=== PATIENT | male | born 1945 | race Caucasian/White ===

== ENCOUNTER 2017-02-04 09:59 | Emergency (ER) | payer MEDICARE ==
[~2017-02-04] VITALS: Ht 180.3 cm; Wt 100.0 kg
[2017-02-04] MEDS ORDERED: METO-95 PO (10:46)
[2017-02-04] MEDS ORDERED: SULF500T47 PO (10:46)
[2017-02-04] MEDS ORDERED: HYDROXUREA PO (10:46)
[2017-02-04] MEDS ORDERED: LAMO100T5 PO (10:46)
[2017-02-04] MEDS ORDERED: AMLO5TAB4 PO (10:46)
[2017-02-04] MEDS ORDERED: XERALTO (10:46)
[2017-02-04] MEDS ORDERED: PREDNISONE (10:52)
[2017-02-04] MEDS ORDERED: SODIUM CHLORIDE 0.9% 1,000 ML IV ONE (10:53)
[2017-02-04] MEDS ORDERED: SODIUM CHLORIDE FLUSH 10ML SYR IVF ONE (11:00)
[2017-02-04] MEDS ORDERED: SODIUM CHLORIDE 0.9% 1,000ML IVBOLUS ONE (11:00)
[2017-02-04 11:33] LABS: HEMATOCRIT 49.5 % (39.2-51.8); HEMOGLOBIN 16.1 g/dL (13.7-18.0); WHITE BLOOD COUNT 10.3 x10^3/uL (3.4-10)
[2017-02-04 11:41] LABS: BLOOD UREA NITROGEN 18 mg/dL (7-18)
[2017-02-04 11:47] LABS: ASPARTATE AMINO TRANSFERASE 18 U/L (15-37)
[2017-02-04 11:52] LABS: ANISOCYTOSIS 1+; GIANT PLATELETS 1+
[2017-02-04 11:53] LABS: HOWELL-JOLLY BODIES 1+
[2017-02-04 11:55] LABS: IS PT STATUS REG ER OR PRE ER? YES
[2017-02-04 13:39] LABS: PATH.CAST-FLAG NOT PRESENT; SPERM-FLAG NOT PRESENT; SRC-FLAG NOT PRESENT; XTAL-FLAG NOT PRESENT; YLC-FLAG NOT PRESENT
[2017-02-04 16:36] VITALS: BP 178/66
== END 2017-02-04 17:34 | disposition home or self-care (01) ==
LOC: ED 12:29
DX: R06.00 Dyspnea, unspecified (principal); R53.1 Weakness; I10 Essential (primary) hypertension
CPT/HCPCS: 36415; 71275; 80053; 81001; 83605; 83735; 83880; 84439; 84443; 84484; 85025; 93005; 96360; 96361; 99285; J7030

== ENCOUNTER 2017-05-28 14:30 | Inpatient (IN) | payer MEDICARE ==
[~2017-05-28] VITALS: Ht 180.3 cm; Wt 88.0 kg
[~2017-05-28 14:30] MED LIST: AMLO5TAB4 PO; HYDROXUREA PO; LAMO100T5 PO; METO-95 PO; PREDNISONE PO; SULF500T47 PO; XERALTO PO
[2017-05-28] MEDS ORDERED: SODIUM CHLORIDE 0.9% 1,000 ML IV ONE ×2 (14:53→17:57)
[2017-05-28] MEDS ORDERED: MAALOX/HYOSCYAMINE/LIDOCAINE 45 ML BTL PO ONE (15:00)
[2017-05-28] MEDS ORDERED: PANTOPRAZOLE 40 MG IV IVP ONE (15:00)
[2017-05-28] MEDS ORDERED: SODIUM CHLORIDE FLUSH 10ML SYR IVF ONE (15:00)
[2017-05-28 15:11] LABS: BASOPHILS # (AUTO) 0.05 x10^3/uL (0-0.1); BASOPHILS % (AUTO) 0 % (0-1); EOSINOPHILS # (AUTO) 0.01 x10^3/uL (0-0.4); EOSINOPHILS % (AUTO) 0 % (1-7); LYMPHOCYTES # (AUTO) 1.19 x10^3/uL (1-3.4); LYMPHOCYTES % (AUTO) 10 % (22-44); MD NO; MEAN CORPUSCULAR HEMOGLOBIN 32.4 pg (27.5-34.5); MEAN CORPUSCULAR HGB CONC 32.2 g/dL (33.2-36.2); MEAN CORPUSCULAR VOLUME 100.6 fL (81-97); MONOCYTES # (AUTO) 0.98 x10^3/uL (0.2-0.8); MONOCYTES % (AUTO) 8 % (2-9); NEUTROPHILS # (AUTO) 9.78 x10^3/uL (1.8-6.8); NEUTROPHILS % (AUTO) 82 % (42-75); PLATELET COUNT 345 x10^3/uL (130-400); RED BLOOD COUNT 5.33 x10^6/uL (4.38-5.82); RED CELL DISTRIBUTION WIDTH 15.2 % (9.4-14.8)
[2017-05-28] MEDS ORDERED: PANTOPRAZOLE 40 MG IV ONE (15:13)
[2017-05-28] MEDS ORDERED: MAALOX/HYOSCYAMINE/LIDOCAINE 45 ML BTL ONE (15:13)
[2017-05-28 15:24] LABS: ALANINE AMINOTRANSFERASE 32 U/L (12-78); ALBUMIN 3.6 g/dL (3.4-5.0); ANION GAP 9 mmol/L (5-15); CALCIUM 10.8 mg/dL (8.5-10.1); CHLORIDE 97 mmol/L (98-107); CREATININE 1.55 mg/dL (0.7-1.3)
[2017-05-28 15:29] LABS: ALKALINE PHOSPHATASE 94 U/L (45-117); BILIRUBIN,TOTAL 0.9 mg/dL (0.2-1.0); TOTAL PROTEIN 8.3 g/dL (6.4-8.2)
[2017-05-28] MEDS ORDERED: CEFOTETAN PMX 1GM/50ML 50 ML IV ONE (17:30)
[2017-05-28 17:34] LABS: CULTURE INDICATED? NO; MICROSCOPIC NOT IND
[2017-05-28] MEDS ORDERED: LORazepam 2 MG/ML, 1ML IVPush PRN (18:00)
[2017-05-28] MEDS ORDERED: ONDANSETRON 2MG/ML, 2ML IVPush PRN (18:00)
[2017-05-28] MEDS ORDERED: hydrALAzine 20 MG/ML, 1ML IVPush PRN (18:00)
[2017-05-28] MEDS ORDERED: SODIUM CHLORIDE FLUSH 10ML SYR IVF PRN (18:00)
[2017-05-28] MEDS ORDERED: LABETALOL 5MG/ML, 20ML IVPush PRN (18:00)
[2017-05-28] MEDS ORDERED: CEFOTETAN PMX 1GM/50ML 50 ML ONE ×2 (18:17→18:22)
[2017-05-28] MEDS ORDERED: PROMETHAZINE 25 MG/ML, 1ML IM ONE (19:00)
[2017-05-28] MEDS: HYDROmorphone 2 MG/ML, 1ML IVPush PRN (19:59)
[2017-05-28] MEDS: SODIUM CHLORIDE 0.9% 1,000 ML IV SCH (20:02)
[2017-05-28] MEDS ORDERED: GABA100C PO (20:27)
[2017-05-28] MEDS ORDERED: MYCO500T3 PO (20:27)
[2017-05-28] MEDS ORDERED: HYDR-3237 PO (20:27)
[2017-05-28] MEDS ORDERED: DIPH25CA61 PO (20:27)
[2017-05-28] MEDS ORDERED: ONDA4TAB10 PO (20:27)
[2017-05-28] MEDS ORDERED: CARB1TAB4 PO (20:27)
[2017-05-28] MEDS ORDERED: TACR1CAP4 PO (20:27)
[2017-05-28] MEDS ORDERED: PROM25TA10 PO (20:27)
[2017-05-28] MEDS ORDERED: OMEP-110 PO (20:27)
[2017-05-28] MEDS ORDERED: NYST1000 PO (20:27)
[2017-05-28] MEDS ORDERED: OXYC10TA47 PO (20:27)
[2017-05-28 20:31] VITALS: BP 121/71
[2017-05-28] MEDS ORDERED: [UNRECOGNIZED DRUG - OTHER] EACHEYE (21:11)
[2017-05-29 00:08] VITALS: BP 157/96
[2017-05-29] MEDS ORDERED: PROP1DRO6 EACHEYE (01:36)
[2017-05-29 01:57] LABS: TROPONIN I 0.031 ng/mL (0.000-0.045)
[2017-05-29] MEDS ORDERED: ARTIFICIAL TEARS OPHTH SOLN 15ML EACHEYE PRN (02:00)
[2017-05-29] MEDS ORDERED: [UNRECOGNIZED DRUG - OTHER] EACHEYE PRN (02:00)
[2017-05-29] MEDS: SODIUM CHLORIDE 0.9% 1,000 ML IV SCH (04:58)
[2017-05-29 05:14] LABS: CLOSTRIDIUM DIFFICILE ANTIGEN NEGATIVE; CLOSTRIDIUM DIFFICILE TOXIN NEGATIVE (Negative)
[2017-05-29 05:55] VITALS: BP 141/80
[2017-05-29] MEDS: METOPROLOL TARTRATE 100 MG TABLET PO SCH ×2 (05:59→17:54)
[2017-05-29 07:31] LABS: MEAN CORPUSCULAR HEMOGLOBIN 32.7 pg (27.5-34.5); MEAN CORPUSCULAR HGB CONC 32.1 g/dL (33.2-36.2); MEAN CORPUSCULAR VOLUME 101.9 fL (81-97); RED BLOOD COUNT 4.53 x10^6/uL (4.38-5.82); RED CELL DISTRIBUTION WIDTH 15.2 % (9.4-14.8)
[2017-05-29 07:37] VITALS: BP 161/92
[2017-05-29 07:38] LABS: TROPONIN I 0.025 ng/mL (0.000-0.045)
[2017-05-29 07:41] LABS: ANION GAP 9 mmol/L (5-15); CHLORIDE 105 mmol/L (98-107); CREATININE 1.15 mg/dL (0.7-1.3)
[2017-05-29 08:26] LABS: BASOPHILS # (AUTO) 0.05 x10^3/uL (0-0.1); BASOPHILS % (AUTO) 1 % (0-1); EOSINOPHILS # (AUTO) 0.09 x10^3/uL (0-0.4); EOSINOPHILS % (AUTO) 1 % (1-7); LYMPHOCYTES # (AUTO) 1.59 x10^3/uL (1-3.4); LYMPHOCYTES % (AUTO) 16 % (22-44); MD SCAN; MEAN PLATELET VOLUME 10.6 fL (7.4-10.4); MONOCYTES % (AUTO) 14 % (2-9); NEUTROPHILS # (AUTO) 6.67 x10^3/uL (1.8-6.8); NEUTROPHILS % (AUTO) 68 % (42-75); PLATELET COUNT 331 x10^3/uL (130-400)
[2017-05-29] MEDS ORDERED: POTASSIUM CHLORIDE 20 MEQ in SODIUM CHLORIDE 0.9% 250 ML IV ONE (09:00)
[2017-05-29 12:00] VITALS: BP 126/63
[2017-05-29] MEDS ORDERED: POTASSIUM PHOSPHATE 44 MEQ in SODIUM CHLORIDE 0.9% 500 ML IV ONE (12:30)
[2017-05-29] MEDS ORDERED: MAGNESIUM SULFATE PMX 4GM/100M 100 ML IV ONE (12:30)
[2017-05-29 13:44] LABS: FOLATE LEVEL > 20.0 ng/mL (3.1-17.5)
[2017-05-29] MEDS: HYDROmorphone 2 MG/ML, 1ML IVPush PRN (14:08)
[2017-05-29] MEDS ORDERED: AMLODIPINE 5 MG TABLET PO SCH (15:00)
[2017-05-29 20:10] VITALS: BP 113/67
[2017-05-29] MEDS: GABAPENTIN 100 MG CAPSULE PO SCH (20:47)
[2017-05-29] MEDS: TACROLIMUS 1 MG CAPSULE PO SCH (20:47)
[2017-05-29] MEDS ORDERED: ALFU10TA3 PO (21:08)
[2017-05-29] MEDS ORDERED: HYDROXYUREA 500 MG CAPSULE PO SCH (21:30)
[2017-05-29] MEDS ORDERED: OMEPRAZOLE 20 MG CAPSULE.DR PO SCH (21:30)
[2017-05-29] MEDS ORDERED: ALFUZOSIN 10 MG PO SCH (22:30)
[2017-05-29] MEDS: RIVAROXABAN 20 MG TABLET PO SCH (23:21)
[2017-05-30] MEDS: TAMSULOSIN 0.4 MG CAP.ER.24H PO SCH ×2 (00:58→21:20)
[2017-05-30 02:40] VITALS: BP 171/90
[2017-05-30 05:28] LABS: MEAN CORPUSCULAR HEMOGLOBIN 32.9 pg (27.5-34.5); MEAN CORPUSCULAR HGB CONC 32.3 g/dL (33.2-36.2); MEAN CORPUSCULAR VOLUME 101.9 fL (81-97); RED BLOOD COUNT 4.74 x10^6/uL (4.38-5.82); RED CELL DISTRIBUTION WIDTH 15.3 % (9.4-14.8)
[2017-05-30 05:35] LABS: BASOPHILS # (AUTO) 0.18 x10^3/uL (0-0.1); BASOPHILS % (AUTO) 2 % (0-1); EOSINOPHILS % (AUTO) 1 % (1-7); LYMPHOCYTES # (AUTO) 1.74 x10^3/uL (1-3.4); LYMPHOCYTES % (AUTO) 19 % (22-44); MD SCAN; MEAN PLATELET VOLUME 10.7 fL (7.4-10.4); MONOCYTES # (AUTO) 1.44 x10^3/uL (0.2-0.8); MONOCYTES % (AUTO) 16 % (2-9); NEUTROPHILS # (AUTO) 5.84 x10^3/uL (1.8-6.8); NEUTROPHILS % (AUTO) 63 % (42-75); PLATELET COUNT 293 x10^3/uL (130-400)
[2017-05-30 05:39] LABS: CHLORIDE 107 mmol/L (98-107)
[2017-05-30 05:49] VITALS: BP 166/85
[2017-05-30 05:50] LABS: ALANINE AMINOTRANSFERASE 28 U/L (12-78); ALKALINE PHOSPHATASE 78 U/L (45-117); ANION GAP 8 mmol/L (5-15); BILIRUBIN,TOTAL 0.9 mg/dL (0.2-1.0); CALCIUM 8.8 mg/dL (8.5-10.1); CREATININE 0.96 mg/dL (0.7-1.3); TOTAL PROTEIN 6.6 g/dL (6.4-8.2)
[2017-05-30] MEDS: GABAPENTIN 100 MG CAPSULE PO SCH ×3 (05:50→21:20)
[2017-05-30] MEDS: METOPROLOL TARTRATE 100 MG TABLET PO SCH ×2 (05:51→18:03)
[2017-05-30] MEDS ORDERED: OMEPRAZOLE 20 MG CAPSULE.DR PO SCH (07:30)
[2017-05-30 07:59] VITALS: BP 164/80
[2017-05-30] MEDS ORDERED: AMLODIPINE 5 MG TABLET PO SCH (09:00)
[2017-05-30] MEDS: TACROLIMUS 1 MG CAPSULE PO SCH ×2 (10:03→21:20)
[2017-05-30] MEDS: SODIUM CHLORIDE 0.9% 1,000 ML IV SCH (12:00)
[2017-05-30] MEDS: FAMOTIDINE 20 MG TABLET PO SCH ×2 (12:12→21:20)
[2017-05-30 13:36] VITALS: BP 109/65
[2017-05-30] MEDS ORDERED: FAMO20TA7 PO (17:17)
[2017-05-30] MEDS ORDERED: AMLO5TAB4 PO (17:17)
[2017-05-30 19:02] VITALS: BP 132/88
[2017-05-30] MEDS: RIVAROXABAN 20 MG TABLET PO SCH (21:20)
== END 2017-05-30 22:09 | disposition home or self-care (01) | DRG 388 ==
LOC: ED 17:56 → EDIP 17:57 → ED 18:45 → 3NE 19:32
PROVIDERS: ADMIT Internal Medicine; ATTEND Internal Medicine
DX: K56.7 Ileus, unspecified (principal); N18.6 End stage renal disease; G62.9 Polyneuropathy, unspecified; I13.11 Hypertensive heart and chronic kidney disease without heart failure, with stage 5 chronic kidney disease, or end stage renal disease; K80.21 Calculus of gallbladder without cholecystitis with obstruction; E83.39 Other disorders of phosphorus metabolism; K50.90 Crohn's disease, unspecified, without complications; Z94.0 Kidney transplant status; K52.9 Noninfective gastroenteritis and colitis, unspecified; Z92.21 Personal history of antineoplastic chemotherapy; I16.0 Hypertensive urgency; E87.6 Hypokalemia; K21.9 Gastro-esophageal reflux disease without esophagitis; E86.0 Dehydration; I73.9 Peripheral vascular disease, unspecified; K56.600 Partial intestinal obstruction, unspecified as to cause; Z85.6 Personal history of leukemia; Z85.828 Personal history of other malignant neoplasm of skin; Z90.81 Acquired absence of spleen
CPT/HCPCS: 36415; 74022; 74176; 76700; 78227; 80048; 80053; 81003; 82607; 82746; 83690; 83735; 83880; 84100; 84443; 84484; 85025; 87324; 87496; 93005; 96374; J1170; J3480; J7507; A9537; C9113; C9898; J3475; J7030; J7040; J7050; J7512; J7517; S0074

== ENCOUNTER 2017-06-10 12:13 | Inpatient (IN) | payer MEDICARE ==
[~2017-06-10] VITALS: Ht 180.3 cm; Wt 90.7 kg
[~2017-06-10 12:13] MED LIST changes: +ALFU10TA3 PO; +CARB1TAB4 PO; +DIPH25CA61 PO; +FAMO20TA7 PO; +GABA100C PO; +HYDR-3237 PO; +MYCO500T3 PO; +NYST1000 PO; +OMEP-110 PO; +ONDA4TAB10 PO; +OXYC10TA47 PO; +PROM25TA10 PO; +PROP1DRO6 EACHEYE; +TACR1CAP4 PO; +[UNRECOGNIZED DRUG - OTHER] EACHEYE
[2017-06-10] MEDS ORDERED: MAALOX/HYOSCYAMINE/LIDOCAINE 45 ML BTL PO ONE (13:00)
[2017-06-10] MEDS ORDERED: SODIUM CHLORIDE 0.9% 1,000ML IVBOLUS ONE ×2 (13:00→13:30)
[2017-06-10] MEDS ORDERED: SODIUM CHLORIDE FLUSH 10ML SYR IVF ONE (13:00)
[2017-06-10] MEDS ORDERED: FAMOTIDINE 20 MG/2 ML IVP ONE (13:00)
[2017-06-10] MEDS ORDERED: ONDANSETRON 2MG/ML, 2ML IVPush ONE (13:00)
[2017-06-10] MEDS ORDERED: ONDANSETRON 2MG/ML, 2ML ONE (13:22)
[2017-06-10] MEDS ORDERED: MAALOX/HYOSCYAMINE/LIDOCAINE 45 ML BTL ONE (13:22)
[2017-06-10] MEDS ORDERED: FAMOTIDINE 20 MG/2 ML ONE (13:23)
[2017-06-10] MEDS ORDERED: MORPHINE SULFATE 4 MG/ML, 1ML IVPush PRN (13:30)
[2017-06-10 14:31] LABS: MEAN CORPUSCULAR HEMOGLOBIN 32.3 pg (27.5-34.5); MEAN CORPUSCULAR HGB CONC 32.1 g/dL (33.2-36.2); MEAN CORPUSCULAR VOLUME 100.8 fL (81-97); MEAN PLATELET VOLUME 10.5 fL (7.4-10.4); PLATELET COUNT 342 x10^3/uL (130-400); RED BLOOD COUNT 5.29 x10^6/uL (4.38-5.82); RED CELL DISTRIBUTION WIDTH 14.9 % (9.4-14.8)
[2017-06-10 14:32] LABS: ALANINE AMINOTRANSFERASE 32 U/L (12-78); ALBUMIN 3.8 g/dL (3.4-5.0); ANION GAP 10 mmol/L (5-15); CALCIUM 10.8 mg/dL (8.5-10.1); CHLORIDE 99 mmol/L (98-107); CREATININE 1.54 mg/dL (0.7-1.3)
[2017-06-10 14:35] LABS: ALKALINE PHOSPHATASE 91 U/L (45-117); TOTAL PROTEIN 8.2 g/dL (6.4-8.2)
[2017-06-10 15:20] LABS: MD YES
[2017-06-10 15:25] LABS: EOS#(MANUAL) 0.11 x10^3/uL (0.0-0.4); EOS% (MANUAL) 1 % (1-7); LYMPH#(MANUAL) 0.57 x10^3/uL (1-3.4); LYMPHS% (MANUAL) 5 % (22-44); MONOS#(MANUAL) 0.68 x10^3/uL (0.3-2.7); MONOS% (MANUAL) 6 % (2-9); SEG#(MANUAL) 10.03 x10^3/uL (1.8-6.8); SEGS% (MANUAL) 88 % (42-75)
[2017-06-10 15:35] LABS: <PLATELET ESTIMATE> ADEQUATE; LARGE PLATELETS 1+
[2017-06-10 16:12] LABS: MICROSCOPIC AUTO
[2017-06-10 16:25] LABS: CULTURE INDICATED? NO
[2017-06-10 17:42] VITALS: BP 166/118
[2017-06-10] MEDS ORDERED: CARBIDOPA/LEVODOPA CR 25 MG/100 MG TABLET PO PRN (18:30)
[2017-06-10] MEDS ORDERED: ARTIFICIAL TEARS OPHTH SOLN 15ML EACHEYE PRN (18:30)
[2017-06-10] MEDS ORDERED: FAMOTIDINE 20 MG TABLET PO PRN (18:30)
[2017-06-10] MEDS ORDERED: HEPARIN/XARELTO MC SCH (19:00)
[2017-06-10] MEDS: SODIUM CHLORIDE 0.9% 1,000 ML IV SCH (19:50)
[2017-06-10] MEDS: GABAPENTIN 100 MG CAPSULE PO SCH (19:50)
[2017-06-10] MEDS: HYDROcodone/APAP 5/325 TABLET PO SCH (19:50)
[2017-06-10] MEDS: ONDANSETRON 2MG/ML, 2ML IVPush PRN (19:50)
[2017-06-10 19:54] VITALS: BP 179/108
[2017-06-10] MEDS: ALFUZOSIN HCL 10 MG HOMEMEDPO SCH (21:00)
[2017-06-10] MEDS ORDERED: HEPARIN 5,000 UNITS/ML, 1ML SQ SCH (21:00)
[2017-06-10] MEDS ORDERED: METOPROLOL SUCCINATE 50 MG TAB.ER.24H ONE (21:15)
[2017-06-10] MEDS: RIVAROXABAN 20 MG TABLET PO SCH (21:49)
[2017-06-10] MEDS: METOPROLOL SUCCINATE 100 MG TAB.ER.24H PO SCH (21:50)
[2017-06-10 21:55] VITALS: BP 168/96
[2017-06-10] MEDS ORDERED: LABETALOL 5MG/ML, 20ML IVPush ONE (22:30)
[2017-06-11 01:58] VITALS: BP 172/74
[2017-06-11] MEDS: GABAPENTIN 100 MG CAPSULE PO SCH ×3 (02:21→18:26)
[2017-06-11] MEDS: HYDROcodone/APAP 5/325 TABLET PO SCH ×3 (02:21→18:26)
[2017-06-11 05:17] LABS: MEAN CORPUSCULAR HEMOGLOBIN 32.3 pg (27.5-34.5); MEAN CORPUSCULAR HGB CONC 31.7 g/dL (33.2-36.2); MEAN CORPUSCULAR VOLUME 101.8 fL (81-97); MEAN PLATELET VOLUME 10.7 fL (7.4-10.4); PLATELET COUNT 302 x10^3/uL (130-400); RED BLOOD COUNT 4.73 x10^6/uL (4.38-5.82); RED CELL DISTRIBUTION WIDTH 15.2 % (9.4-14.8)
[2017-06-11 05:30] LABS: ALBUMIN 3.1 g/dL (3.4-5.0); ANION GAP 9 mmol/L (5-15); CALCIUM 8.9 mg/dL (8.5-10.1); CHLORIDE 105 mmol/L (98-107)
[2017-06-11 05:49] LABS: BASOPHILS # (AUTO) 0.11 x10^3/uL (0-0.1); BASOPHILS % (AUTO) 1 % (0-1); EOSINOPHILS # (AUTO) 0.01 x10^3/uL (0-0.4); EOSINOPHILS % (AUTO) 0 % (1-7); LYMPHOCYTES # (AUTO) 1.68 x10^3/uL (1-3.4); LYMPHOCYTES % (AUTO) 16 % (22-44); MD SCAN; MONOCYTES # (AUTO) 1.46 x10^3/uL (0.2-0.8); MONOCYTES % (AUTO) 14 % (2-9); NEUTROPHILS # (AUTO) 7.41 x10^3/uL (1.8-6.8); NEUTROPHILS % (AUTO) 70 % (42-75)
[2017-06-11 05:50] LABS: ALANINE AMINOTRANSFERASE 27 U/L (12-78); ALKALINE PHOSPHATASE 71 U/L (45-117); BILIRUBIN,TOTAL 0.8 mg/dL (0.2-1.0); CREATININE 1.34 mg/dL (0.7-1.3); TOTAL PROTEIN 6.9 g/dL (6.4-8.2)
[2017-06-11] MEDS: SODIUM CHLORIDE 0.9% 1,000 ML IV SCH ×2 (06:31→17:23)
[2017-06-11 06:52] VITALS: BP 169/94
[2017-06-11] MEDS ORDERED: POTASSIUM CHLORIDE 20 MEQ TAB.ER.PRT PO ONE (07:00)
[2017-06-11] MEDS ORDERED: hydrALAzine 20 MG/ML, 1ML IV PRN (07:00)
[2017-06-11] MEDS ORDERED: MAGNESIUM SULFATE PMX 2GM/50ML 50 ML IV ONE (07:00)
[2017-06-11] MEDS: ACETAMINOPHEN 325 MG TABLET PO PRN (08:48)
[2017-06-11] MEDS: SULFASALAZINE 500 MG TABLET PO SCH (08:48)
[2017-06-11] MEDS: AMLODIPINE 5 MG TABLET PO SCH (08:49)
[2017-06-11] MEDS: TACROLIMUS 1 MG CAPSULE PO SCH ×2 (08:49→20:04)
[2017-06-11] MEDS: METOPROLOL SUCCINATE 100 MG TAB.ER.24H PO SCH ×2 (08:49→20:05)
[2017-06-11] MEDS ORDERED: HYDROXYUREA 500 MG CAPSULE PO SCH (09:00)
[2017-06-11 10:15] VITALS: BP 124/78
[2017-06-11 13:21] VITALS: BP 122/76
[2017-06-11] MEDS ORDERED: MORPHINE SULFATE 4 MG/ML, 1ML ONE (13:35)
[2017-06-11] MEDS: morphine SULFATE 10 MG/ML, 1ML IVPush PRN ×2 (13:37→16:49)
[2017-06-11] MEDS: HYDROXYUREA 500 MG CAPSULE PO SCH (17:19)
[2017-06-11 19:58] VITALS: BP 155/93
[2017-06-11] MEDS: ALFUZOSIN HCL 10 MG HOMEMEDPO SCH (20:05)
[2017-06-11] MEDS: RIVAROXABAN 20 MG TABLET PO SCH (20:05)
[2017-06-12] MEDS: morphine SULFATE 10 MG/ML, 1ML IVPush PRN ×2 (00:04→10:43)
[2017-06-12] MEDS: ONDANSETRON 2MG/ML, 2ML IVPush PRN (00:08)
[2017-06-12] MEDS: GABAPENTIN 100 MG CAPSULE PO SCH ×3 (02:28→18:29)
[2017-06-12] MEDS: SODIUM CHLORIDE 0.9% 1,000 ML IV SCH (02:28)
[2017-06-12] MEDS: HYDROcodone/APAP 5/325 TABLET PO SCH ×3 (02:28→18:29)
[2017-06-12 02:30] VITALS: BP 157/86
[2017-06-12 07:34] VITALS: BP 163/93
[2017-06-12 08:30] LABS: BASOPHILS # (AUTO) 0.11 x10^3/uL (0-0.1); BASOPHILS % (AUTO) 1 % (0-1); EOSINOPHILS # (AUTO) 0.07 x10^3/uL (0-0.4); EOSINOPHILS % (AUTO) 1 % (1-7); LYMPHOCYTES # (AUTO) 1.87 x10^3/uL (1-3.4); LYMPHOCYTES % (AUTO) 21 % (22-44); MD NO; MEAN CORPUSCULAR HEMOGLOBIN 32.4 pg (27.5-34.5); MEAN CORPUSCULAR HGB CONC 31.9 g/dL (33.2-36.2); MEAN CORPUSCULAR VOLUME 101.8 fL (81-97); MEAN PLATELET VOLUME 10.6 fL (7.4-10.4); MONOCYTES # (AUTO) 1.06 x10^3/uL (0.2-0.8); MONOCYTES % (AUTO) 12 % (2-9); NEUTROPHILS # (AUTO) 5.81 x10^3/uL (1.8-6.8); NEUTROPHILS % (AUTO) 65 % (42-75); PLATELET COUNT 287 x10^3/uL (130-400); RED BLOOD COUNT 5.15 x10^6/uL (4.38-5.82); RED CELL DISTRIBUTION WIDTH 15.4 % (9.4-14.8)
[2017-06-12 08:46] LABS: ALBUMIN 3.5 g/dL (3.4-5.0); ANION GAP 5 mmol/L (5-15); CALCIUM 9.2 mg/dL (8.5-10.1); CHLORIDE 105 mmol/L (98-107)
[2017-06-12] MEDS ORDERED: LIDOCAINE 2% VISCOUS 15 ML UDC PO PRN (09:00)
[2017-06-12 09:10] LABS: ALANINE AMINOTRANSFERASE 30 U/L (12-78); ALKALINE PHOSPHATASE 77 U/L (45-117); BILIRUBIN,TOTAL 0.7 mg/dL (0.2-1.0); CREATININE 0.97 mg/dL (0.7-1.3); TOTAL PROTEIN 7.5 g/dL (6.4-8.2)
[2017-06-12 09:16] LABS: TOTAL IRON BINDING CAPACITY 355 mcg/dL (250-450)
[2017-06-12 09:17] LABS: % IRON SATURATION 17 % (20-55); FOLATE LEVEL > 20.0 ng/mL (3.1-17.5); IRON LEVEL 60 mcg/dL (65-175)
[2017-06-12] MEDS: FAMOTIDINE 20 MG/2 ML IVPush SCH ×2 (10:23→19:59)
[2017-06-12] MEDS: AMLODIPINE 5 MG TABLET PO SCH (10:24)
[2017-06-12] MEDS: METOPROLOL SUCCINATE 100 MG TAB.ER.24H PO SCH ×2 (10:25→20:00)
[2017-06-12] MEDS: TACROLIMUS 1 MG CAPSULE PO SCH ×2 (10:25→20:00)
[2017-06-12] MEDS: LISINOPRIL 5 MG TABLET PO SCH (10:25)
[2017-06-12] MEDS: HYDROXYUREA 500 MG CAPSULE PO SCH (10:30)
[2017-06-12] MEDS: SULFASALAZINE 500 MG TABLET PO SCH (10:37)
[2017-06-12 14:17] VITALS: BP 125/69
[2017-06-12 19:09] VITALS: BP 119/78
[2017-06-12] MEDS: ALFUZOSIN HCL 10 MG HOMEMEDPO SCH (20:00)
[2017-06-12] MEDS: ACETAMINOPHEN 325 MG TABLET PO PRN (23:45)
[2017-06-13 00:36] VITALS: BP 121/66
[2017-06-13] MEDS: HYDROcodone/APAP 5/325 TABLET PO SCH ×3 (02:30→18:30)
[2017-06-13] MEDS: GABAPENTIN 100 MG CAPSULE PO SCH ×3 (02:30→18:30)
[2017-06-13 05:01] LABS: ALANINE AMINOTRANSFERASE 23 U/L (12-78); ALBUMIN 3.1 g/dL (3.4-5.0); ANION GAP 7 mmol/L (5-15); CALCIUM 8.9 mg/dL (8.5-10.1); CHLORIDE 108 mmol/L (98-107); CREATININE 0.89 mg/dL (0.7-1.3)
[2017-06-13 05:03] LABS: ALKALINE PHOSPHATASE 68 U/L (45-117); BILIRUBIN,TOTAL 0.7 mg/dL (0.2-1.0); MEAN CORPUSCULAR HEMOGLOBIN 32.6 pg (27.5-34.5); MEAN CORPUSCULAR VOLUME 101.9 fL (81-97); MEAN PLATELET VOLUME 10.7 fL (7.4-10.4); PLATELET COUNT 311 x10^3/uL (130-400); RED BLOOD COUNT 4.85 x10^6/uL (4.38-5.82); RED CELL DISTRIBUTION WIDTH 15.9 % (9.4-14.8); TOTAL PROTEIN 6.8 g/dL (6.4-8.2)
[2017-06-13 06:08] LABS: BASOPHILS # (AUTO) 0.09 x10^3/uL (0-0.1); BASOPHILS % (AUTO) 1 % (0-1); EOSINOPHILS # (AUTO) 0.12 x10^3/uL (0-0.4); EOSINOPHILS % (AUTO) 1 % (1-7); LYMPHOCYTES # (AUTO) 1.94 x10^3/uL (1-3.4); LYMPHOCYTES % (AUTO) 23 % (22-44); MD SCAN; MONOCYTES # (AUTO) 1.01 x10^3/uL (0.2-0.8); MONOCYTES % (AUTO) 12 % (2-9); NEUTROPHILS # (AUTO) 5.43 x10^3/uL (1.8-6.8); NEUTROPHILS % (AUTO) 63 % (42-75)
[2017-06-13] MEDS ORDERED: POTASSIUM PHOSPHATE 44 MEQ in SODIUM CHLORIDE 0.9% 500 ML IV ONE (07:00)
[2017-06-13 07:35] VITALS: BP 165/84
[2017-06-13 07:36] LABS: TRIGLYCERIDES 163 mg/dL (50-200)
[2017-06-13] MEDS: METOPROLOL SUCCINATE 100 MG TAB.ER.24H PO SCH ×2 (08:39→20:01)
[2017-06-13] MEDS: TACROLIMUS 1 MG CAPSULE PO SCH ×2 (08:40→20:01)
[2017-06-13] MEDS: SULFASALAZINE 500 MG TABLET PO SCH (08:40)
[2017-06-13] MEDS: AMLODIPINE 5 MG TABLET PO SCH (08:40)
[2017-06-13] MEDS: FAMOTIDINE 20 MG/2 ML IVPush SCH ×2 (08:41→20:00)
[2017-06-13] MEDS: LISINOPRIL 5 MG TABLET PO SCH (08:44)
[2017-06-13] MEDS: HYDROXYUREA 500 MG CAPSULE PO SCH (08:45)
[2017-06-13 14:03] VITALS: BP 127/79
[2017-06-13 19:12] VITALS: BP 161/85
[2017-06-13] MEDS: ALFUZOSIN HCL 10 MG HOMEMEDPO SCH (20:02)
[2017-06-13] MEDS: ACETAMINOPHEN 325 MG TABLET PO PRN (20:33)
[2017-06-13 20:55] VITALS: BP 165/90
[2017-06-13] MEDS: ONDANSETRON 2MG/ML, 2ML IVPush PRN (21:16)
[2017-06-13 21:18] VITALS: BP 152/79
[2017-06-14 01:43] VITALS: BP 142/96
[2017-06-14] MEDS: GABAPENTIN 100 MG CAPSULE PO SCH ×3 (02:10→18:31)
[2017-06-14] MEDS: HYDROcodone/APAP 5/325 TABLET PO SCH ×3 (02:30→18:31)
[2017-06-14 05:18] LABS: ALBUMIN 3.1 g/dL (3.4-5.0); ANION GAP 10 mmol/L (5-15); CALCIUM 8.8 mg/dL (8.5-10.1); CHLORIDE 107 mmol/L (98-107)
[2017-06-14 05:21] LABS: CREATININE 0.81 mg/dL (0.7-1.3)
[2017-06-14 05:48] LABS: BASOPHILS # (AUTO) 0.11 x10^3/uL (0-0.1); BASOPHILS % (AUTO) 1 % (0-1); EOSINOPHILS # (AUTO) 0.12 x10^3/uL (0-0.4); EOSINOPHILS % (AUTO) 2 % (1-7); LYMPHOCYTES # (AUTO) 1.77 x10^3/uL (1-3.4); LYMPHOCYTES % (AUTO) 22 % (22-44); MD SCAN; MEAN CORPUSCULAR HEMOGLOBIN 32.5 pg (27.5-34.5); MEAN CORPUSCULAR VOLUME 101.6 fL (81-97); MEAN PLATELET VOLUME 10.9 fL (7.4-10.4); MONOCYTES # (AUTO) 0.88 x10^3/uL (0.2-0.8); MONOCYTES % (AUTO) 11 % (2-9); NEUTROPHILS # (AUTO) 5.12 x10^3/uL (1.8-6.8); NEUTROPHILS % (AUTO) 64 % (42-75); PLATELET COUNT 320 x10^3/uL (130-400); RED BLOOD COUNT 4.94 x10^6/uL (4.38-5.82); RED CELL DISTRIBUTION WIDTH 15.2 % (9.4-14.8)
[2017-06-14 06:53] VITALS: BP 165/105
[2017-06-14] MEDS: morphine SULFATE 10 MG/ML, 1ML IVPush PRN (07:42)
[2017-06-14] MEDS: METOPROLOL SUCCINATE 100 MG TAB.ER.24H PO SCH ×2 (07:54→20:48)
[2017-06-14] MEDS: LISINOPRIL 5 MG TABLET PO SCH (09:00)
[2017-06-14] MEDS: AMLODIPINE 5 MG TABLET PO SCH (09:00)
[2017-06-14] MEDS: FAMOTIDINE 20 MG/2 ML IVPush SCH (09:00)
[2017-06-14] MEDS: TACROLIMUS 1 MG CAPSULE PO SCH ×2 (09:00→20:48)
[2017-06-14] MEDS: HYDROXYUREA 500 MG CAPSULE PO SCH (09:00)
[2017-06-14] MEDS: SULFASALAZINE 500 MG TABLET PO SCH (09:00)
[2017-06-14] MEDS ORDERED: MIDAZOLAM 1 MG/ML, 5ML ONE (09:47)
[2017-06-14] MEDS ORDERED: FENTANYL PF 100 MCG/2ML ONE (09:47)
[2017-06-14] MEDS ORDERED: POTASSIUM CHLORIDE 20 MEQ TAB.ER.PRT PO ONE (11:00)
[2017-06-14 11:39] VITALS: BP 166/94
[2017-06-14 14:08] VITALS: BP 123/74
[2017-06-14] MEDS: CLOTRIMAZOLE TROCHES 10 MG PO SCH ×3 (16:03→20:48)
[2017-06-14] MEDS: OMEPRAZOLE 20 MG CAPSULE.DR PO SCH (16:37)
[2017-06-14 19:34] VITALS: BP 126/75
[2017-06-14] MEDS: ALFUZOSIN HCL 10 MG HOMEMEDPO SCH (20:49)
[2017-06-15] MEDS: GABAPENTIN 100 MG CAPSULE PO SCH ×3 (02:14→18:30)
[2017-06-15] MEDS: HYDROcodone/APAP 5/325 TABLET PO SCH ×4 (02:14→21:14)
[2017-06-15 02:17] VITALS: BP 144/90
[2017-06-15 04:04] LABS: BASOPHILS # (AUTO) 0.03 x10^3/uL (0-0.1); BASOPHILS % (AUTO) 0 % (0-1); EOSINOPHILS # (AUTO) 0.14 x10^3/uL (0-0.4); EOSINOPHILS % (AUTO) 1 % (1-7); LYMPHOCYTES % (AUTO) 18 % (22-44); MD NO; MEAN CORPUSCULAR HEMOGLOBIN 32.4 pg (27.5-34.5); MEAN CORPUSCULAR VOLUME 101.4 fL (81-97); MEAN PLATELET VOLUME 10.4 fL (7.4-10.4); MONOCYTES # (AUTO) 1.06 x10^3/uL (0.2-0.8); MONOCYTES % (AUTO) 11 % (2-9); NEUTROPHILS # (AUTO) 6.97 x10^3/uL (1.8-6.8); NEUTROPHILS % (AUTO) 70 % (42-75); PLATELET COUNT 297 x10^3/uL (130-400); RED BLOOD COUNT 5.06 x10^6/uL (4.38-5.82); RED CELL DISTRIBUTION WIDTH 15.5 % (9.4-14.8)
[2017-06-15 04:12] LABS: ALANINE AMINOTRANSFERASE 25 U/L (12-78); ANION GAP 8 mmol/L (5-15); CALCIUM 8.8 mg/dL (8.5-10.1); CHLORIDE 107 mmol/L (98-107)
[2017-06-15 04:15] LABS: ALKALINE PHOSPHATASE 71 U/L (45-117); BILIRUBIN,TOTAL 0.7 mg/dL (0.2-1.0); CREATININE 0.98 mg/dL (0.7-1.3); TOTAL PROTEIN 6.7 g/dL (6.4-8.2)
[2017-06-15] MEDS: CLOTRIMAZOLE TROCHES 10 MG PO SCH ×5 (05:11→21:03)
[2017-06-15 07:17] VITALS: BP 167/114
[2017-06-15] MEDS: METOPROLOL SUCCINATE 100 MG TAB.ER.24H PO SCH ×2 (07:26→20:49)
[2017-06-15] MEDS: TACROLIMUS 1 MG CAPSULE PO SCH ×2 (07:26→21:03)
[2017-06-15] MEDS: AMLODIPINE 5 MG TABLET PO SCH (07:27)
[2017-06-15] MEDS: OMEPRAZOLE 20 MG CAPSULE.DR PO SCH ×2 (07:37→17:00)
[2017-06-15] MEDS: SULFASALAZINE 500 MG TABLET PO SCH (07:38)
[2017-06-15] MEDS ORDERED: LISINOPRIL 10 MG TABLET PO SCH (09:00)
[2017-06-15] MEDS: HYDROXYUREA 500 MG CAPSULE PO SCH (09:30)
[2017-06-15] MEDS ORDERED: MAGNESIUM SULFATE PMX 2GM/50ML 50 ML IV ONE (09:30)
[2017-06-15] MEDS: MAGNESIUM OXIDE 400 MG TABLET PO SCH ×2 (10:30→21:03)
[2017-06-15] MEDS ORDERED: SODIUM CHLORIDE 0.9% 1,000ML IVBOLUS ONE (13:30)
[2017-06-15 14:09] VITALS: BP 99/71
[2017-06-15 15:08] VITALS: BP 114/76
[2017-06-15 15:33] LABS: MICROSCOPIC INDICATED
[2017-06-15] MEDS ORDERED: CEFTRIAXONE PMX 1GM/50ML 50 ML IV SCH (16:00)
[2017-06-15] MEDS ORDERED: RIVAROXABAN 20 MG TABLET PO SCH (17:00)
[2017-06-15] MEDS: SODIUM CHLORIDE 0.9% 1,000 ML IV SCH (17:01)
[2017-06-15 18:26] VITALS: BP 130/75
[2017-06-15 18:58] VITALS: BP 117/76
[2017-06-15] MEDS: ALFUZOSIN HCL 10 MG HOMEMEDPO SCH (20:49)
[2017-06-16] MEDS: SODIUM CHLORIDE 0.9% 1,000 ML IV SCH ×2 (01:46→13:04)
[2017-06-16 01:51] VITALS: BP 144/80
[2017-06-16] MEDS: GABAPENTIN 100 MG CAPSULE PO SCH ×2 (01:54→09:24)
[2017-06-16] MEDS: HYDROcodone/APAP 5/325 TABLET PO SCH ×2 (05:33→13:09)
[2017-06-16] MEDS: CLOTRIMAZOLE TROCHES 10 MG PO SCH ×3 (05:33→13:10)
[2017-06-16 06:57] VITALS: BP 162/95
[2017-06-16] MEDS: HYDROXYUREA 500 MG CAPSULE PO SCH (07:28)
[2017-06-16] MEDS: SULFASALAZINE 500 MG TABLET PO SCH (07:28)
[2017-06-16] MEDS: TACROLIMUS 1 MG CAPSULE PO SCH (07:28)
[2017-06-16] MEDS: OMEPRAZOLE 20 MG CAPSULE.DR PO SCH (07:28)
[2017-06-16] MEDS: MAGNESIUM OXIDE 400 MG TABLET PO SCH (07:29)
[2017-06-16] MEDS: METOPROLOL SUCCINATE 100 MG TAB.ER.24H PO SCH (07:29)
[2017-06-16] MEDS ORDERED: OMEP-110 PO (09:45)
[2017-06-16] MEDS ORDERED: CLOT10TR PO (09:45)
[2017-06-16 13:02] VITALS: BP 155/94
== END 2017-06-16 13:56 | disposition home or self-care (01) | DRG 380 ==
LOC: ED 13:21 → EDIP 16:48 → 3NE 17:39 → 3NW 06-11 09:33
PROVIDERS: ADMIT Hospitalist; ATTEND Hospitalist
PROC: 0DB58ZX Excision of Esophagus, Via Natural or Artificial Opening Endoscopic, Diagnostic (ICD-10-PCS; 2017-06-14)
PROC: 0T9B70Z Drainage of Bladder with Drainage Device, Via Natural or Artificial Opening (ICD-10-PCS; principal; 2017-06-15)
DX: K22.10 Ulcer of esophagus without bleeding (principal); K85.90 Acute pancreatitis without necrosis or infection, unspecified; N17.9 Acute kidney failure, unspecified; T86.19 Other complication of kidney transplant; E46 Unspecified protein-calorie malnutrition; I13.11 Hypertensive heart and chronic kidney disease without heart failure, with stage 5 chronic kidney disease, or end stage renal disease; N18.6 End stage renal disease; N13.30 Unspecified hydronephrosis; D75.1 Secondary polycythemia; N13.9 Obstructive and reflux uropathy, unspecified; E86.0 Dehydration; N32.0 Bladder-neck obstruction; R10.9 Unspecified abdominal pain; Y83.0 Surgical operation with transplant of whole organ as the cause of abnormal reaction of the patient, or of later complication, without mention of misadventure at the time of the procedure; Z68.27 Body mass index [BMI] 27.0-27.9, adult; I73.9 Peripheral vascular disease, unspecified; K80.20 Calculus of gallbladder without cholecystitis without obstruction; N25.0 Renal osteodystrophy; Z79.01 Long term (current) use of anticoagulants; Z79.52 Long term (current) use of systemic steroids; Z79.899 Other long term (current) drug therapy; Z85.6 Personal history of leukemia; Z85.828 Personal history of other malignant neoplasm of skin; Z87.19 Personal history of other diseases of the digestive system
CPT/HCPCS: 36415; 74176; 80053; 80069; 81001; 82150; 82306; 82607; 82728; 82746; 83540; 83550; 83690; 83735; 83970; 84100; 84153; 84478; 84550; 85025; 87015; 87040; 87116; 87206; 88305; 88312; 93005; 96361; 96374; 96375; 99152; 99153; J0696; J2250; J2405; J3010; J7507; G0103; J0360; J2270; J3475; J7030; J7040; J7512; J7517; S0028

== ENCOUNTER 2017-06-20 14:02 | Inpatient (IN) | payer MEDICARE ==
[~2017-06-20] VITALS: Ht 180.3 cm; Wt 89.3 kg
[~2017-06-20 14:02] MED LIST changes: +CLOT10TR PO
[2017-06-20] MEDS ORDERED: SODIUM CHLORIDE FLUSH 10ML SYR IVF ONE (14:30)
[2017-06-20 14:51] LABS: BASOPHILS # (AUTO) 0.04 x10^3/uL (0-0.1); BASOPHILS % (AUTO) 0 % (0-1); EOSINOPHILS # (AUTO) 0.07 x10^3/uL (0-0.4); EOSINOPHILS % (AUTO) 1 % (1-7); LYMPHOCYTES # (AUTO) 1.53 x10^3/uL (1-3.4); LYMPHOCYTES % (AUTO) 17 % (22-44); MD NO; MEAN CORPUSCULAR HEMOGLOBIN 32.2 pg (27.5-34.5); MEAN CORPUSCULAR HGB CONC 32.3 g/dL (33.2-36.2); MEAN CORPUSCULAR VOLUME 99.9 fL (81-97); MEAN PLATELET VOLUME 10.4 fL (7.4-10.4); MONOCYTES # (AUTO) 1.27 x10^3/uL (0.2-0.8); MONOCYTES % (AUTO) 14 % (2-9); NEUTROPHILS % (AUTO) 69 % (42-75); PLATELET COUNT 302 x10^3/uL (130-400); RED BLOOD COUNT 5.13 x10^6/uL (4.38-5.82); RED CELL DISTRIBUTION WIDTH 15.4 % (9.4-14.8)
[2017-06-20 15:03] LABS: ALANINE AMINOTRANSFERASE 34 U/L (12-78); ALBUMIN 3.4 g/dL (3.4-5.0); ANION GAP 11 mmol/L (5-15); CHLORIDE 101 mmol/L (98-107); CREATININE 1.38 mg/dL (0.7-1.3)
[2017-06-20 15:05] LABS: ALKALINE PHOSPHATASE 79 U/L (45-117); BILIRUBIN,TOTAL 0.8 mg/dL (0.2-1.0); TOTAL PROTEIN 7.6 g/dL (6.4-8.2)
[2017-06-20 15:06] LABS: TROPONIN I < 0.015 ng/mL (0.000-0.045)
[2017-06-20] MEDS ORDERED: MAALOX/HYOSCYAMINE/LIDOCAINE 45 ML BTL ONE (15:55)
[2017-06-20] MEDS ORDERED: ONDANSETRON 2MG/ML, 2ML ONE ×2 (15:55→22:19)
[2017-06-20 15:58] LABS: CULTURE INDICATED? YES; MICROSCOPIC INDICATED
[2017-06-20] MEDS ORDERED: SODIUM CHLORIDE 0.9% 1,000ML IVBOLUS ONE (16:00)
[2017-06-20] MEDS ORDERED: ONDANSETRON 2MG/ML, 2ML IVPush ONE (16:00)
[2017-06-20] MEDS ORDERED: MAALOX/HYOSCYAMINE/LIDOCAINE 45 ML BTL PO ONE (16:00)
[2017-06-20] MEDS ORDERED: PROMETHAZINE 25 MG/ML, 1ML ONE ×2 (18:24→22:38)
[2017-06-20] MEDS ORDERED: PROMETHAZINE 25 MG/ML, 1ML IM ONE (18:30)
[2017-06-20] MEDS ORDERED: SODIUM CHLORIDE 0.9% 1,000 ML IV ONE (20:02)
[2017-06-20] MEDS ORDERED: FLUO20CA8 PO (20:20)
[2017-06-20] MEDS ORDERED: AMLO5TAB4 PO (20:20)
[2017-06-20] MEDS ORDERED: METO-99 PO (20:20)
[2017-06-20] MEDS ORDERED: [UNRECOGNIZED DRUG - OTHER] TD (20:20)
[2017-06-20] MEDS ORDERED: DOCUSATE 100 MG CAPSULE PO PRN (20:30)
[2017-06-20] MEDS ORDERED: PROMETHAZINE 25 MG/ML, 1ML IM PRN (20:30)
[2017-06-20] MEDS ORDERED: hydrALAzine 20 MG/ML, 1ML IVPush PRN (20:30)
[2017-06-20] MEDS ORDERED: SODIUM CHLORIDE FLUSH 10ML SYR IVF PRN (20:30)
[2017-06-20] MEDS ORDERED: TEMAZEPAM 15 MG CAPSULE PO PRN (20:30)
[2017-06-20] MEDS ORDERED: CARBIDOPA/LEVODOPA CR 25 MG/100 MG TABLET PO PRN (22:00)
[2017-06-20] MEDS: GABAPENTIN 100 MG CAPSULE PO SCH ×2 (22:00→23:34)
[2017-06-20] MEDS ORDERED: HYDROcodone/APAP 5/325 TABLET ONE (22:16)
[2017-06-20] MEDS ORDERED: OXYcodone IR 5MG TABLET ONE (22:16)
[2017-06-20] MEDS: ONDANSETRON 2MG/ML, 2ML IVPush PRN (22:23)
[2017-06-20] MEDS ORDERED: MAGNESIUM SULFATE PMX 4GM/100M 100 ML IV ONE (23:00)
[2017-06-20] MEDS: OxyconTIN ER 10 MG TAB.ER PO SCH (23:34)
[2017-06-20] MEDS: RIVAROXABAN 20 MG TABLET PO SCH (23:34)
[2017-06-20] MEDS: HYDROcodone/APAP 5/325 TABLET PO SCH (23:34)
[2017-06-20] MEDS: SODIUM CHLORIDE 0.9% 1,000 ML IV SCH (23:34)
[2017-06-20 23:46] VITALS: BP 184/109
[2017-06-21 00:24] VITALS: BP 105/63
[2017-06-21] MEDS: GABAPENTIN 100 MG CAPSULE PO SCH ×3 (05:30→21:49)
[2017-06-21] MEDS: HYDROcodone/APAP 5/325 TABLET PO SCH ×3 (05:30→21:49)
[2017-06-21] MEDS: ONDANSETRON 2MG/ML, 2ML IVPush PRN (05:30)
[2017-06-21 05:57] LABS: MEAN CORPUSCULAR HEMOGLOBIN 32.5 pg (27.5-34.5); MEAN CORPUSCULAR HGB CONC 32.3 g/dL (33.2-36.2); MEAN CORPUSCULAR VOLUME 100.5 fL (81-97); MEAN PLATELET VOLUME 10.7 fL (7.4-10.4); PLATELET COUNT 160 x10^3/uL (130-400); RED BLOOD COUNT 5.16 x10^6/uL (4.38-5.82); RED CELL DISTRIBUTION WIDTH 15.4 % (9.4-14.8)
[2017-06-21 06:18] LABS: ALANINE AMINOTRANSFERASE 29 U/L (12-78); ALBUMIN 3.2 g/dL (3.4-5.0); ANION GAP 12 mmol/L (5-15); CHLORIDE 104 mmol/L (98-107)
[2017-06-21 06:21] LABS: BASOPHILS % (AUTO) 1 % (0-1); EOSINOPHILS # (AUTO) 0.06 x10^3/uL (0-0.4); EOSINOPHILS % (AUTO) 1 % (1-7); LYMPHOCYTES # (AUTO) 2.17 x10^3/uL (1-3.4); LYMPHOCYTES % (AUTO) 21 % (22-44); MD SCAN; MONOCYTES # (AUTO) 1.62 x10^3/uL (0.2-0.8); MONOCYTES % (AUTO) 15 % (2-9); NEUTROPHILS # (AUTO) 6.57 x10^3/uL (1.8-6.8); NEUTROPHILS % (AUTO) 62 % (42-75)
[2017-06-21 06:21] LABS: ALKALINE PHOSPHATASE 75 U/L (45-117); BILIRUBIN,TOTAL 0.7 mg/dL (0.2-1.0); CREATININE 1.07 mg/dL (0.7-1.3); TOTAL PROTEIN 7.2 g/dL (6.4-8.2)
[2017-06-21 07:30] VITALS: BP 155/93
[2017-06-21] MEDS ORDERED: HYDROXYUREA 500 MG CAPSULE PO SCH (09:00)
[2017-06-21] MEDS: FLUOXETINE HCL 20 MG CAPSULE PO SCH (09:10)
[2017-06-21] MEDS: PANTOPRAZOLE 40 MG IV IVPush SCH (09:10)
[2017-06-21] MEDS: AMLODIPINE 5 MG TABLET PO SCH (09:10)
[2017-06-21] MEDS: SODIUM CHLORIDE 0.9% 1,000 ML IV SCH ×2 (11:03→17:40)
[2017-06-21] MEDS: SUCRALFATE 1 GM/10 ML UDC PO SCH ×3 (11:03→21:49)
[2017-06-21] MEDS: OxyconTIN ER 10 MG TAB.ER PO SCH ×2 (11:03→21:49)
[2017-06-21 12:45] VITALS: BP 153/91
[2017-06-21 20:14] VITALS: BP 153/94
[2017-06-21] MEDS: ALFUZOSIN HCL 10 MG HOMEMEDPO SCH (21:00)
[2017-06-21] MEDS: HYDROXYUREA 500 MG CAPSULE PO SCH (21:48)
[2017-06-21] MEDS: RIVAROXABAN 20 MG TABLET PO SCH (21:49)
[2017-06-22] MEDS: SODIUM CHLORIDE 0.9% 1,000 ML IV SCH ×4 (00:55→22:53)
[2017-06-22 00:56] VITALS: BP 127/75
[2017-06-22] MEDS: HYDROcodone/APAP 5/325 TABLET PO SCH ×3 (05:44→21:20)
[2017-06-22] MEDS: GABAPENTIN 100 MG CAPSULE PO SCH ×3 (05:44→21:20)
[2017-06-22 07:28] LABS: ALANINE AMINOTRANSFERASE 27 U/L (12-78); ANION GAP 5 mmol/L (5-15); CALCIUM 8.8 mg/dL (8.5-10.1); CHLORIDE 110 mmol/L (98-107)
[2017-06-22 07:30] LABS: ALKALINE PHOSPHATASE 70 U/L (45-117); BILIRUBIN,TOTAL 0.9 mg/dL (0.2-1.0); TOTAL PROTEIN 6.5 g/dL (6.4-8.2)
[2017-06-22] MEDS: SUCRALFATE 1 GM/10 ML UDC PO SCH ×4 (07:52→20:15)
[2017-06-22] MEDS: PANTOPRAZOLE 40 MG IV IVPush SCH (07:52)
[2017-06-22 08:41] VITALS: BP 120/70
[2017-06-22] MEDS ORDERED: MAALOX/HYOSCYAMINE/LIDOCAINE 45 ML BTL PO ONE (09:00)
[2017-06-22] MEDS ORDERED: HYDROXYUREA 500 MG CAPSULE PO SCH (09:00)
[2017-06-22 09:41] LABS: MEAN CORPUSCULAR HEMOGLOBIN 32.6 pg (27.5-34.5); MEAN CORPUSCULAR HGB CONC 32.2 g/dL (33.2-36.2); MEAN CORPUSCULAR VOLUME 101.3 fL (81-97); RED BLOOD COUNT 4.56 x10^6/uL (4.38-5.82); RED CELL DISTRIBUTION WIDTH 15.9 % (9.4-14.8)
[2017-06-22 09:59] LABS: BASOPHILS # (AUTO) 0.07 x10^3/uL (0-0.1); BASOPHILS % (AUTO) 1 % (0-1); EOSINOPHILS # (AUTO) 0.11 x10^3/uL (0-0.4); EOSINOPHILS % (AUTO) 1 % (1-7); LYMPHOCYTES # (AUTO) 1.47 x10^3/uL (1-3.4); LYMPHOCYTES % (AUTO) 15 % (22-44); MD SCAN; MEAN PLATELET VOLUME 10.5 fL (7.4-10.4); MONOCYTES # (AUTO) 1.23 x10^3/uL (0.2-0.8); MONOCYTES % (AUTO) 13 % (2-9); NEUTROPHILS # (AUTO) 6.71 x10^3/uL (1.8-6.8); NEUTROPHILS % (AUTO) 70 % (42-75); PLATELET COUNT 300 x10^3/uL (130-400)
[2017-06-22] MEDS: OxyconTIN ER 10 MG TAB.ER PO SCH ×2 (12:14→21:20)
[2017-06-22] MEDS: FLUOXETINE HCL 20 MG CAPSULE PO SCH (12:14)
[2017-06-22] MEDS: AMLODIPINE 5 MG TABLET PO SCH (12:14)
[2017-06-22 14:02] VITALS: BP 157/99
[2017-06-22] MEDS: ALFUZOSIN HCL 10 MG HOMEMEDPO SCH (19:01)
[2017-06-22 20:00] VITALS: BP 145/88
[2017-06-22] MEDS: RIVAROXABAN 20 MG TABLET PO SCH (20:16)
[2017-06-22] MEDS: HYDROXYUREA 500 MG CAPSULE PO SCH (20:17)
[2017-06-22] MEDS: TAMSULOSIN 0.4 MG CAP.ER.24H PO SCH (21:20)
[2017-06-23 02:00] VITALS: BP 179/98
[2017-06-23 04:47] LABS: MEAN CORPUSCULAR HEMOGLOBIN 32.6 pg (27.5-34.5); MEAN CORPUSCULAR HGB CONC 32.4 g/dL (33.2-36.2); MEAN CORPUSCULAR VOLUME 100.6 fL (81-97); MEAN PLATELET VOLUME 10.9 fL (7.4-10.4); PLATELET COUNT 320 x10^3/uL (130-400); RED BLOOD COUNT 4.48 x10^6/uL (4.38-5.82); RED CELL DISTRIBUTION WIDTH 15.5 % (9.4-14.8)
[2017-06-23 04:56] LABS: ANION GAP 9 mmol/L (5-15); CALCIUM 8.8 mg/dL (8.5-10.1); CHLORIDE 106 mmol/L (98-107); CREATININE 0.85 mg/dL (0.7-1.3)
[2017-06-23] MEDS: GABAPENTIN 100 MG CAPSULE PO SCH ×3 (05:09→22:10)
[2017-06-23] MEDS: HYDROcodone/APAP 5/325 TABLET PO SCH ×3 (05:09→22:00)
[2017-06-23 05:43] LABS: BASOPHILS # (AUTO) 0.24 x10^3/uL (0-0.1); BASOPHILS % (AUTO) 2 % (0-1); EOSINOPHILS # (AUTO) 0.05 x10^3/uL (0-0.4); EOSINOPHILS % (AUTO) 0 % (1-7); LYMPHOCYTES # (AUTO) 1.77 x10^3/uL (1-3.4); LYMPHOCYTES % (AUTO) 12 % (22-44); MD SCAN; MONOCYTES # (AUTO) 1.91 x10^3/uL (0.2-0.8); MONOCYTES % (AUTO) 13 % (2-9); NEUTROPHILS # (AUTO) 11.07 x10^3/uL (1.8-6.8); NEUTROPHILS % (AUTO) 74 % (42-75)
[2017-06-23 06:11] VITALS: BP 164/99
[2017-06-23] MEDS: SODIUM CHLORIDE 0.9% 1,000 ML IV SCH (06:13)
[2017-06-23 06:45] VITALS: BP 158/83
[2017-06-23] MEDS: ONDANSETRON 2MG/ML, 2ML IVPush PRN (08:15)
[2017-06-23] MEDS: PANTOPRAZOLE 40 MG IV IVPush SCH (08:16)
[2017-06-23] MEDS: SUCRALFATE 1 GM/10 ML UDC PO SCH ×4 (08:17→20:54)
[2017-06-23] MEDS: FLUOXETINE HCL 20 MG CAPSULE PO SCH (10:12)
[2017-06-23] MEDS: AMLODIPINE 5 MG TABLET PO SCH (10:12)
[2017-06-23] MEDS: OxyconTIN ER 10 MG TAB.ER PO SCH ×2 (10:12→22:10)
[2017-06-23 12:50] VITALS: BP 105/65
[2017-06-23 19:22] VITALS: BP 98/62
[2017-06-23] MEDS: RIVAROXABAN 20 MG TABLET PO SCH (20:55)
[2017-06-23] MEDS: TAMSULOSIN 0.4 MG CAP.ER.24H PO SCH (20:55)
[2017-06-23] MEDS: HYDROXYUREA 500 MG CAPSULE PO SCH (20:56)
[2017-06-23] MEDS: ALFUZOSIN HCL 10 MG HOMEMEDPO SCH (20:59)
[2017-06-23 22:03] VITALS: BP 150/89
[2017-06-24 02:16] VITALS: BP 144/82
[2017-06-24] MEDS: HYDROcodone/APAP 5/325 TABLET PO SCH (06:00)
[2017-06-24] MEDS: SUCRALFATE 1 GM/10 ML UDC PO SCH ×3 (06:11→16:57)
[2017-06-24] MEDS: GABAPENTIN 100 MG CAPSULE PO SCH ×2 (06:11→14:29)
[2017-06-24 07:14] VITALS: BP 172/109
[2017-06-24 08:26] VITALS: BP 126/80
[2017-06-24] MEDS: PANTOPRAZOLE 40 MG IV IVPush SCH (08:26)
[2017-06-24] MEDS: KETOROLAC 30 MG/1 ML IVPush PRN ×2 (08:27→16:57)
[2017-06-24] MEDS: CARBIDOPA/LEVODOPA CR 25 MG/100 MG TABLET PO SCH ×2 (08:27→08:42)
[2017-06-24] MEDS: FLUOXETINE HCL 20 MG CAPSULE PO SCH (08:27)
[2017-06-24] MEDS: AMLODIPINE 5 MG TABLET PO SCH (08:27)
[2017-06-24] MEDS: OxyconTIN ER 10 MG TAB.ER PO SCH (10:43)
[2017-06-24 12:22] VITALS: BP 104/68
[2017-06-24] MEDS ORDERED: SUCR1ORA5 PO (13:14)
[2017-06-24] MEDS ORDERED: PANT40TA3 PO (13:18)
[2017-06-24] MEDS ORDERED: HYDROcodone/APAP 5/325 TABLET PO PRN (14:00)
[2017-06-24] MEDS ORDERED: ARTIFICIAL TEARS 15 DROP/ML BOTTLE EACHEYE PRN (17:00)
[2017-06-24] MEDS ORDERED: TACROLIMUS 1 MG CAPSULE PO SCH (21:00)
== END 2017-06-24 18:07 | DRG 682 ==
LOC: ED 15:35 → EDIP 20:18 → 3NW 23:03
PROVIDERS: ADMIT Internal Medicine; ATTEND Internal Medicine
PROC: 0T9B70Z Drainage of Bladder with Drainage Device, Via Natural or Artificial Opening (ICD-10-PCS; principal; 2017-06-20)
DX: N17.0 Acute kidney failure with tubular necrosis (principal); J96.00 Acute respiratory failure, unspecified whether with hypoxia or hypercapnia; I95.9 Hypotension, unspecified; I13.10 Hypertensive heart and chronic kidney disease without heart failure, with stage 1 through stage 4 chronic kidney disease, or unspecified chronic kidney disease; I73.9 Peripheral vascular disease, unspecified; Z94.0 Kidney transplant status; K20.9 Esophagitis, unspecified; N18.9 Chronic kidney disease, unspecified; Z79.899 Other long term (current) drug therapy; Z85.6 Personal history of leukemia
CPT/HCPCS: 36415; 71045; 74021; 80048; 80053; 80197; 81001; 83690; 83735; 84484; 85025; 87086; 93005; 96361; 96372; 96374; J1885; J2405; J2550; C9113; J0360; J3475; J7030; J7512; J7517

== ENCOUNTER 2017-08-06 11:22 | Inpatient (IN) | payer MEDICARE ==
[~2017-08-06] VITALS: Ht 180.3 cm; Wt 82.4 kg
[~2017-08-06 11:22] MED LIST changes: +FLUO20CA8 PO; +METO-99 PO; +PANT40TA3 PO; +SUCR1ORA5 PO; +[UNRECOGNIZED DRUG - OTHER] TD
[2017-08-06] MEDS ORDERED: PRED5TAB PO (12:00)
[2017-08-06] MEDS ORDERED: SODIUM CHLORIDE 0.9% 1,000ML IVBOLUS ONE ×2 (12:00→14:00)
[2017-08-06] MEDS ORDERED: RIVA20TA PO (12:00)
[2017-08-06] MEDS ORDERED: SODIUM CHLORIDE FLUSH 10ML SYR IVF ONE (12:00)
[2017-08-06 12:52] LABS: MEAN CORPUSCULAR HEMOGLOBIN 30.9 pg (27.5-34.5); MEAN CORPUSCULAR HGB CONC 31.8 g/dL (33.2-36.2); MEAN CORPUSCULAR VOLUME 97.4 fL (81-97); MEAN PLATELET VOLUME 10.7 fL (7.4-10.4); PLATELET COUNT 492 x10^3/uL (130-400); RED BLOOD COUNT 4.91 x10^6/uL (4.38-5.82); RED CELL DISTRIBUTION WIDTH 16.8 % (9.4-14.8)
[2017-08-06 13:08] LABS: MD MORPH REVIEW ONLY
[2017-08-06 13:09] LABS: ANISOCYTOSIS 1+
[2017-08-06 13:13] LABS: <PLATELET ESTIMATE> INCREASED
[2017-08-06 13:14] LABS: HOWELL-JOLLY BODIES 1+; LARGE PLATELETS 1+
[2017-08-06 13:17] LABS: CULTURE INDICATED? YES; MICROSCOPIC INDICATED
[2017-08-06 13:28] LABS: ALANINE AMINOTRANSFERASE 18 U/L (12-78); ALBUMIN 3.1 g/dL (3.4-5.0); ANION GAP 7 mmol/L (5-15); CALCIUM 9.7 mg/dL (8.5-10.1); CHLORIDE 101 mmol/L (98-107); CREATININE 1.75 mg/dL (0.7-1.3)
[2017-08-06 13:33] LABS: ALKALINE PHOSPHATASE 80 U/L (45-117); BILIRUBIN,TOTAL 0.9 mg/dL (0.2-1.0); T4 (THYROXINE) 8.8 mcg/dL (4.5-12.1); TOTAL PROTEIN 8.3 g/dL (6.4-8.2); TROPONIN I 0.028 ng/mL (0.000-0.045)
[2017-08-06 13:39] LABS: THYROID STIMULATING HORMONE 0.893 mIU/L (0.358-3.740)
[2017-08-06] MEDS ORDERED: CEFTRIAXONE PMX 1GM/50ML 50 ML IV ONE (14:00)
[2017-08-06] MEDS ORDERED: ACETAMINOPHEN 500 MG TABLET PO ONE (14:00)
[2017-08-06] MEDS ORDERED: SODIUM CHLORIDE 0.9% 1,000 ML IV ONE (14:00)
[2017-08-06] MEDS ORDERED: CEFTRIAXONE PMX 1GM/50ML 50 ML ONE (14:03)
[2017-08-06] MEDS ORDERED: ACETAMINOPHEN 500 MG TABLET ONE (14:11)
[2017-08-06] MEDS ORDERED: ONDANSETRON ODT 4 MG PO PRN (15:00)
[2017-08-06] MEDS ORDERED: CARBIDOPA/LEVODOPA 25 MG/100 MG TABLET PO PRN (15:00)
[2017-08-06] MEDS ORDERED: ONDANSETRON 2MG/ML, 2ML IVPush PRN (15:00)
[2017-08-06] MEDS ORDERED: MAGNESIUM SULFATE 1 GM in SODIUM CHLORIDE 0.9% 50 ML IV ONE (15:00)
[2017-08-06] MEDS ORDERED: HEPARIN 5,000 UNITS/ML, 1ML SQ SCH (15:00)
[2017-08-06 15:23] VITALS: BP 169/109
[2017-08-06] MEDS ORDERED: [UNRECOGNIZED DRUG - OTHER] MC SCH (16:00)
[2017-08-06] MEDS: hydrALAzine 20 MG/ML, 1ML IVPush PRN (16:33)
[2017-08-06] MEDS: SODIUM CHLORIDE 0.9% 1,000 ML IV SCH (16:33)
[2017-08-06] MEDS: GABAPENTIN 100 MG CAPSULE PO SCH ×2 (16:33→22:39)
[2017-08-06] MEDS: SUCRALFATE 1 GM/10 ML UDC PO SCH ×2 (16:33→23:34)
[2017-08-06 18:30] VITALS: BP 119/73
[2017-08-06 19:38] VITALS: BP 131/90
[2017-08-06] MEDS: TAMSULOSIN 0.4 MG CAP.ER.24H PO SCH (22:38)
[2017-08-06] MEDS: HYDROcodone/APAP 5/325 TABLET PO PRN (22:38)
[2017-08-06] MEDS: PANTOPROZOLE 40MG TABLET PO SCH (22:38)
[2017-08-06] MEDS: TACROLIMUS 1 MG CAPSULE PO SCH (23:35)
[2017-08-07] MEDS: CEFTRIAXONE PMX 2GM/50ML 50 ML IV SCH (01:49)
[2017-08-07 02:00] VITALS: BP 168/85
[2017-08-07] MEDS: SODIUM CHLORIDE 0.9% 1,000 ML IV SCH ×2 (05:41→15:53)
[2017-08-07] MEDS: GABAPENTIN 100 MG CAPSULE PO SCH ×3 (05:41→21:05)
[2017-08-07 05:46] LABS: MEAN CORPUSCULAR HEMOGLOBIN 31.5 pg (27.5-34.5); MEAN CORPUSCULAR HGB CONC 32.4 g/dL (33.2-36.2); MEAN CORPUSCULAR VOLUME 97.2 fL (81-97); RED BLOOD COUNT 4.76 x10^6/uL (4.38-5.82)
[2017-08-07 05:56] LABS: ALBUMIN 2.8 g/dL (3.4-5.0); ANION GAP 5 mmol/L (5-15); CALCIUM 9.2 mg/dL (8.5-10.1); CHLORIDE 110 mmol/L (98-107)
[2017-08-07 06:02] LABS: ALANINE AMINOTRANSFERASE 20 U/L (12-78); ALKALINE PHOSPHATASE 72 U/L (45-117); BILIRUBIN,TOTAL 0.4 mg/dL (0.2-1.0); TOTAL PROTEIN 7.8 g/dL (6.4-8.2)
[2017-08-07 06:09] LABS: BASOPHILS # (AUTO) 0.02 x10^3/uL (0-0.1); BASOPHILS % (AUTO) 0 % (0-1); EOSINOPHILS # (AUTO) 0.01 x10^3/uL (0-0.4); EOSINOPHILS % (AUTO) 0 % (1-7); LYMPHOCYTES % (AUTO) 15 % (22-44); MD SCAN; MEAN PLATELET VOLUME 10.3 fL (7.4-10.4); MONOCYTES # (AUTO) 0.57 x10^3/uL (0.2-0.8); MONOCYTES % (AUTO) 5 % (2-9); NEUTROPHILS # (AUTO) 8.85 x10^3/uL (1.8-6.8); NEUTROPHILS % (AUTO) 80 % (42-75); PLATELET COUNT 439 x10^3/uL (130-400)
[2017-08-07 07:53] VITALS: BP 155/91
[2017-08-07] MEDS: SUCRALFATE 1 GM/10 ML UDC PO SCH ×4 (08:02→21:04)
[2017-08-07] MEDS: HYDROXYUREA 500 MG CAPSULE PO SCH (08:10)
[2017-08-07] MEDS: TACROLIMUS 1 MG CAPSULE PO SCH ×2 (08:10→21:04)
[2017-08-07] MEDS: PANTOPROZOLE 40MG TABLET PO SCH ×2 (08:11→21:04)
[2017-08-07] MEDS: RIVAROXABAN 20 MG TABLET PO SCH (08:11)
[2017-08-07] MEDS: FLUOXETINE HCL 20 MG CAPSULE PO SCH (08:11)
[2017-08-07 12:40] VITALS: BP 152/97
[2017-08-07] MEDS: HYDROcodone/APAP 5/325 TABLET PO PRN (18:20)
[2017-08-07 18:44] VITALS: BP 188/101
[2017-08-07 21:00] VITALS: BP 165/113
[2017-08-07] MEDS: TAMSULOSIN 0.4 MG CAP.ER.24H PO SCH (21:05)
[2017-08-07] MEDS: hydrALAzine 20 MG/ML, 1ML IVPush PRN (21:05)
[2017-08-07] MEDS: TEMAZEPAM 15 MG CAPSULE PO PRN (23:24)
[2017-08-07 23:30] VITALS: BP 172/100
[2017-08-07] MEDS ORDERED: ARTIFICIAL TEARS 15 DROP/ML BOTTLE EACHEYE PRN (23:30)
[2017-08-08] VITALS (7 sets, daily range): BP systolic 116–191; BP diastolic 70–119
[2017-08-08] MEDS: CEFTRIAXONE PMX 2GM/50ML 50 ML IV SCH (01:01)
[2017-08-08] MEDS: morphine SULFATE 10 MG/ML, 1ML IVPush PRN ×2 (01:23→03:00)
[2017-08-08] MEDS: hydrALAzine 20 MG/ML, 1ML IV PRN ×2 (01:24→21:43)
[2017-08-08] MEDS: SODIUM CHLORIDE 0.9% 1,000 ML IV SCH (02:41)
[2017-08-08 05:32] LABS: BASOPHILS # (AUTO) 0.14 x10^3/uL (0-0.1); BASOPHILS % (AUTO) 1 % (0-1); EOSINOPHILS # (AUTO) 0.03 x10^3/uL (0-0.4); EOSINOPHILS % (AUTO) 0 % (1-7); LYMPHOCYTES # (AUTO) 1.93 x10^3/uL (1-3.4); LYMPHOCYTES % (AUTO) 16 % (22-44); MD NO; MEAN CORPUSCULAR HEMOGLOBIN 31.1 pg (27.5-34.5); MEAN CORPUSCULAR HGB CONC 31.8 g/dL (33.2-36.2); MEAN CORPUSCULAR VOLUME 97.8 fL (81-97); MEAN PLATELET VOLUME 10.9 fL (7.4-10.4); MONOCYTES # (AUTO) 1.23 x10^3/uL (0.2-0.8); MONOCYTES % (AUTO) 10 % (2-9); NEUTROPHILS # (AUTO) 8.63 x10^3/uL (1.8-6.8); NEUTROPHILS % (AUTO) 72 % (42-75); PLATELET COUNT 418 x10^3/uL (130-400); RED CELL DISTRIBUTION WIDTH 16.6 % (9.4-14.8)
[2017-08-08] MEDS: GABAPENTIN 100 MG CAPSULE PO SCH ×3 (05:44→20:23)
[2017-08-08 05:53] LABS: ANION GAP 12 mmol/L (5-15); CALCIUM 9.1 mg/dL (8.5-10.1); CHLORIDE 105 mmol/L (98-107); CREATININE 1.44 mg/dL (0.7-1.3)
[2017-08-08] MEDS: SUCRALFATE 1 GM/10 ML UDC PO SCH ×4 (08:09→20:22)
[2017-08-08] MEDS ORDERED: AMLODIPINE 5 MG TABLET PO SCH (09:30)
[2017-08-08] MEDS ORDERED: MAGNESIUM SULFATE PMX 4GM/100M 100 ML IV ONE (09:30)
[2017-08-08] MEDS ORDERED: POTASSIUM CHLORIDE 20 MEQ TAB.ER.PRT PO ONE (09:30)
[2017-08-08] MEDS ORDERED: SENNOSIDES 8.6 MG TABLET ONE (09:39)
[2017-08-08] MEDS: PANTOPROZOLE 40MG TABLET PO SCH ×2 (09:49→20:23)
[2017-08-08] MEDS: FLUOXETINE HCL 20 MG CAPSULE PO SCH (09:49)
[2017-08-08] MEDS: TACROLIMUS 1 MG CAPSULE PO SCH ×2 (09:49→20:23)
[2017-08-08] MEDS: RIVAROXABAN 20 MG TABLET PO SCH (09:49)
[2017-08-08] MEDS: ACETAMINOPHEN 325 MG TABLET PO PRN (09:50)
[2017-08-08] MEDS: HYDROXYUREA 500 MG CAPSULE PO SCH (09:53)
[2017-08-08] MEDS ORDERED: SENNA/DOCUSATE TABLET PO SCH (10:00)
[2017-08-08] MEDS ORDERED: POLYETHYLENE GLYCOL 17 GM PACKET PO PRN (12:00)
[2017-08-08] MEDS: SENNA/DOCUSATE TABLET PO SCH ×2 (12:00→20:23)
[2017-08-08] MEDS ORDERED: SODIUM CHLORIDE 0.9% 1,000 ML IV SCH (14:52)
[2017-08-08] MEDS ORDERED: SULF500T47 PO (16:44)
[2017-08-08] MEDS ORDERED: TOLN15CR TP (16:44)
[2017-08-08] MEDS ORDERED: OLOP2.5D OP (16:44)
[2017-08-08] MEDS ORDERED: VENL37.52 PO (16:44)
[2017-08-08] MEDS ORDERED: OMEP-110 PO (16:44)
[2017-08-08] MEDS ORDERED: CYCL1DRO OP (16:44)
[2017-08-08] MEDS ORDERED: MELO7.5T31 PO (16:44)
[2017-08-08] MEDS ORDERED: ACYC15OI6 TP (16:44)
[2017-08-08] MEDS ORDERED: B CO1TAB14 PO (16:44)
[2017-08-08] MEDS ORDERED: PROM25TA10 PO (16:44)
[2017-08-08] MEDS: AMOXICILLIN/CLAV 875-125MG TABLET PO SCH (17:25)
[2017-08-08] MEDS: TAMSULOSIN 0.4 MG CAP.ER.24H PO SCH (20:22)
[2017-08-08] MEDS: TEMAZEPAM 15 MG CAPSULE PO PRN (20:23)
[2017-08-08] MEDS: HYDROcodone/APAP 5/325 TABLET PO PRN (22:48)
[2017-08-09 03:19] VITALS: BP 179/90
[2017-08-09] MEDS: morphine SULFATE 10 MG/ML, 1ML IVPush PRN (03:28)
[2017-08-09] MEDS: hydrALAzine 20 MG/ML, 1ML IV PRN (03:28)
[2017-08-09] MEDS: AMOXICILLIN/CLAV 875-125MG TABLET PO SCH ×2 (05:00→18:07)
[2017-08-09] MEDS: GABAPENTIN 100 MG CAPSULE PO SCH ×3 (05:30→20:23)
[2017-08-09 06:18] LABS: ANION GAP 9 mmol/L (5-15); CALCIUM 9.4 mg/dL (8.5-10.1); CHLORIDE 108 mmol/L (98-107); CREATININE 1.14 mg/dL (0.7-1.3)
[2017-08-09 06:29] LABS: BASOPHILS # (AUTO) 0.06 x10^3/uL (0-0.1); BASOPHILS % (AUTO) 1 % (0-1); EOSINOPHILS # (AUTO) 0.03 x10^3/uL (0-0.4); EOSINOPHILS % (AUTO) 0 % (1-7); LYMPHOCYTES # (AUTO) 1.43 x10^3/uL (1-3.4); LYMPHOCYTES % (AUTO) 12 % (22-44); MD NO; MEAN CORPUSCULAR HEMOGLOBIN 31.1 pg (27.5-34.5); MEAN CORPUSCULAR HGB CONC 32.1 g/dL (33.2-36.2); MEAN CORPUSCULAR VOLUME 96.8 fL (81-97); MEAN PLATELET VOLUME 10.4 fL (7.4-10.4); MONOCYTES # (AUTO) 1.05 x10^3/uL (0.2-0.8); MONOCYTES % (AUTO) 9 % (2-9); NEUTROPHILS # (AUTO) 9.06 x10^3/uL (1.8-6.8); NEUTROPHILS % (AUTO) 78 % (42-75); PLATELET COUNT 397 x10^3/uL (130-400); RED BLOOD COUNT 4.51 x10^6/uL (4.38-5.82); RED CELL DISTRIBUTION WIDTH 16.5 % (9.4-14.8)
[2017-08-09] MEDS: SUCRALFATE 1 GM/10 ML UDC PO SCH ×4 (07:39→20:20)
[2017-08-09 07:44] VITALS: BP 168/89
[2017-08-09] MEDS ORDERED: AMLODIPINE 5 MG TABLET PO SCH (09:00)
[2017-08-09 09:30] VITALS: BP 102/64
[2017-08-09] MEDS: RIVAROXABAN 20 MG TABLET PO SCH (09:41)
[2017-08-09] MEDS: SENNA/DOCUSATE TABLET PO SCH ×2 (09:43→20:23)
[2017-08-09] MEDS: FLUOXETINE HCL 20 MG CAPSULE PO SCH (09:43)
[2017-08-09] MEDS: TACROLIMUS 1 MG CAPSULE PO SCH ×2 (09:44→20:22)
[2017-08-09] MEDS: PANTOPROZOLE 40MG TABLET PO SCH ×2 (09:46→20:23)
[2017-08-09 12:41] VITALS: BP 128/75
[2017-08-09 13:27] LABS: FOLATE LEVEL > 20.0 ng/mL (3.1-17.5)
[2017-08-09] MEDS: METOPROLOL TARTRATE 25 MG TABLET PO SCH ×2 (13:28→18:07)
[2017-08-09] MEDS: POLYETHYLENE GLYCOL 17 GM PACKET PO SCH (13:40)
[2017-08-09] MEDS ORDERED: CARBIDOPA/LEVODOPA 25 MG/100 MG TABLET PO SCH (16:00)
[2017-08-09] MEDS: ACETAMINOPHEN 325 MG TABLET PO PRN (18:12)
[2017-08-09 20:14] VITALS: BP 139/97
[2017-08-09] MEDS: TAMSULOSIN 0.4 MG CAP.ER.24H PO SCH (20:20)
[2017-08-09] MEDS: CARBIDOPA/LEVODOPA 25 MG/100 MG TABLET PO SCH (20:23)
[2017-08-09] MEDS ORDERED: HYDROXYUREA 500 MG CAPSULE PO SCH ×2 (21:00→22:00)
[2017-08-09] MEDS: HYDROXYUREA 500 MG CAPSULE PO SCH (22:45)
[2017-08-09] MEDS: TEMAZEPAM 15 MG CAPSULE PO PRN (22:46)
[2017-08-10 02:08] VITALS: BP 146/93
[2017-08-10] MEDS: METOPROLOL TARTRATE 25 MG TABLET PO SCH ×2 (05:34→18:20)
[2017-08-10] MEDS: AMOXICILLIN/CLAV 875-125MG TABLET PO SCH ×2 (05:34→16:23)
[2017-08-10] MEDS: GABAPENTIN 100 MG CAPSULE PO SCH ×3 (05:34→20:26)
[2017-08-10 06:26] LABS: MEAN CORPUSCULAR HEMOGLOBIN 31.4 pg (27.5-34.5); MEAN CORPUSCULAR HGB CONC 32.3 g/dL (33.2-36.2); MEAN PLATELET VOLUME 10.4 fL (7.4-10.4); PLATELET COUNT 399 x10^3/uL (130-400); RED BLOOD COUNT 4.56 x10^6/uL (4.38-5.82); RED CELL DISTRIBUTION WIDTH 16.3 % (9.4-14.8)
[2017-08-10 06:45] LABS: ANISOCYTOSIS 1+; BASOPHILS # (AUTO) 0.06 x10^3/uL (0-0.1); BASOPHILS % (AUTO) 1 % (0-1); EOSINOPHILS % (AUTO) 1 % (1-7); LYMPHOCYTES % (AUTO) 14 % (22-44); MD MORPH REVIEW ONLY; MONOCYTES # (AUTO) 0.86 x10^3/uL (0.2-0.8); MONOCYTES % (AUTO) 9 % (2-9); NEUTROPHILS # (AUTO) 7.38 x10^3/uL (1.8-6.8); NEUTROPHILS % (AUTO) 75 % (42-75)
[2017-08-10 06:46] LABS: <PLATELET ESTIMATE> ADEQUATE; GIANT PLATELETS 1+; LARGE PLATELETS 1+
[2017-08-10 07:09] LABS: ALBUMIN 2.8 g/dL (3.4-5.0); ANION GAP 10 mmol/L (5-15); CALCIUM 9.2 mg/dL (8.5-10.1); CHLORIDE 106 mmol/L (98-107)
[2017-08-10 07:13] LABS: ALANINE AMINOTRANSFERASE 24 U/L (12-78); ALKALINE PHOSPHATASE 69 U/L (45-117); BILIRUBIN,TOTAL 0.9 mg/dL (0.2-1.0); CREATININE 1.34 mg/dL (0.7-1.3)
[2017-08-10 07:45] VITALS: BP 148/84
[2017-08-10] MEDS: SUCRALFATE 1 GM/10 ML UDC PO SCH ×4 (07:45→20:26)
[2017-08-10] MEDS: FLUOXETINE HCL 20 MG CAPSULE PO SCH (08:56)
[2017-08-10] MEDS: PANTOPROZOLE 40MG TABLET PO SCH ×2 (08:56→20:26)
[2017-08-10] MEDS: CARBIDOPA/LEVODOPA 25 MG/100 MG TABLET PO SCH ×3 (08:57→20:26)
[2017-08-10] MEDS: TACROLIMUS 1 MG CAPSULE PO SCH ×2 (08:57→20:40)
[2017-08-10] MEDS: RIVAROXABAN 20 MG TABLET PO SCH (08:57)
[2017-08-10] MEDS: SENNA/DOCUSATE TABLET PO SCH ×2 (09:00→20:16)
[2017-08-10] MEDS: POLYETHYLENE GLYCOL 17 GM PACKET PO SCH (09:00)
[2017-08-10 12:05] VITALS: BP 129/70
[2017-08-10 20:01] VITALS: BP 158/96
[2017-08-10] MEDS: AMLODIPINE 5 MG TABLET PO SCH (20:26)
[2017-08-10] MEDS: HYDROcodone/APAP 5/325 TABLET PO PRN (20:27)
[2017-08-10] MEDS ORDERED: CEFTRIAXONE 2 GM in DEXTROSE 5% 50 ML IV SCH (20:30)
[2017-08-10] MEDS: TAMSULOSIN 0.4 MG CAP.ER.24H PO SCH (20:40)
[2017-08-10] MEDS: TEMAZEPAM 15 MG CAPSULE PO PRN (20:41)
[2017-08-10] MEDS: HYDROXYUREA 500 MG CAPSULE PO SCH (21:40)
[2017-08-11 01:38] VITALS: BP 139/86
[2017-08-11 05:30] LABS: ALBUMIN 2.7 g/dL (3.4-5.0); CALCIUM 9.2 mg/dL (8.5-10.1); CHLORIDE 109 mmol/L (98-107)
[2017-08-11 05:34] LABS: ALANINE AMINOTRANSFERASE 22 U/L (12-78); ALKALINE PHOSPHATASE 72 U/L (45-117); ANION GAP 8 mmol/L (5-15); BILIRUBIN,TOTAL 0.4 mg/dL (0.2-1.0); TOTAL PROTEIN 7.3 g/dL (6.4-8.2)
[2017-08-11] MEDS: GABAPENTIN 100 MG CAPSULE PO SCH ×3 (05:35→21:18)
[2017-08-11] MEDS: METOPROLOL TARTRATE 25 MG TABLET PO SCH ×2 (05:35→17:48)
[2017-08-11] MEDS: AMOXICILLIN/CLAV 875-125MG TABLET PO SCH ×2 (05:35→17:47)
[2017-08-11 05:36] VITALS: BP 157/93
[2017-08-11 05:43] LABS: BASOPHILS # (AUTO) 0.06 x10^3/uL (0-0.1); BASOPHILS % (AUTO) 1 % (0-1); EOSINOPHILS # (AUTO) 0.05 x10^3/uL (0-0.4); EOSINOPHILS % (AUTO) 0 % (1-7); LYMPHOCYTES % (AUTO) 16 % (22-44); MD SCAN; MEAN CORPUSCULAR HGB CONC 31.7 g/dL (33.2-36.2); MEAN CORPUSCULAR VOLUME 97.8 fL (81-97); MEAN PLATELET VOLUME 10.6 fL (7.4-10.4); MONOCYTES # (AUTO) 1.17 x10^3/uL (0.2-0.8); MONOCYTES % (AUTO) 9 % (2-9); NEUTROPHILS # (AUTO) 9.54 x10^3/uL (1.8-6.8); NEUTROPHILS % (AUTO) 74 % (42-75); PLATELET COUNT 414 x10^3/uL (130-400); RED BLOOD COUNT 4.74 x10^6/uL (4.38-5.82); RED CELL DISTRIBUTION WIDTH 16.6 % (9.4-14.8)
[2017-08-11 06:47] VITALS: BP 132/81
[2017-08-11] MEDS: SUCRALFATE 1 GM/10 ML UDC PO SCH ×4 (08:17→21:18)
[2017-08-11] MEDS: TACROLIMUS 1 MG CAPSULE PO SCH ×2 (08:22→21:18)
[2017-08-11] MEDS: RIVAROXABAN 20 MG TABLET PO SCH (08:22)
[2017-08-11] MEDS: SENNA/DOCUSATE TABLET PO SCH ×2 (08:23→21:19)
[2017-08-11] MEDS: CARBIDOPA/LEVODOPA 25 MG/100 MG TABLET PO SCH ×3 (08:23→21:18)
[2017-08-11] MEDS: PANTOPROZOLE 40MG TABLET PO SCH ×2 (08:23→21:18)
[2017-08-11] MEDS: FLUOXETINE HCL 20 MG CAPSULE PO SCH (08:23)
[2017-08-11] MEDS ORDERED: SODIUM PHOSPHATE 30 MMOL in SODIUM CHLORIDE 0.9% 500 ML IV ONE (09:30)
[2017-08-11] MEDS ORDERED: SODIUM PHOSPHATE 4 MEQ/ML IV SCH (09:30)
[2017-08-11] MEDS ORDERED: MAGNESIUM SULFATE PMX 2GM/50ML 50 ML IV ONE (09:30)
[2017-08-11] MEDS: HYDROcodone/APAP 5/325 TABLET PO PRN ×2 (09:43→18:30)
[2017-08-11] MEDS: CEFDINIR 300 MG CAPSULE PO SCH ×2 (10:31→21:18)
[2017-08-11 15:04] VITALS: BP 111/76
[2017-08-11] MEDS: ACETAMINOPHEN 325 MG TABLET PO PRN (15:49)
[2017-08-11 18:50] VITALS: BP 131/81
[2017-08-11] MEDS: AMLODIPINE 5 MG TABLET PO SCH (21:19)
[2017-08-11] MEDS: TAMSULOSIN 0.4 MG CAP.ER.24H PO SCH (21:19)
[2017-08-11] MEDS: HYDROXYUREA 500 MG CAPSULE PO SCH (21:33)
[2017-08-11] MEDS: TEMAZEPAM 15 MG CAPSULE PO PRN (22:35)
[2017-08-12 01:05] VITALS: BP 132/82
[2017-08-12] MEDS: AMOXICILLIN/CLAV 875-125MG TABLET PO SCH ×2 (04:42→17:09)
[2017-08-12] MEDS: ACETAMINOPHEN 325 MG TABLET PO PRN ×3 (04:43→14:02)
[2017-08-12 04:49] VITALS: BP 125/78
[2017-08-12] MEDS: GABAPENTIN 100 MG CAPSULE PO SCH ×2 (04:51→14:02)
[2017-08-12] MEDS: METOPROLOL TARTRATE 25 MG TABLET PO SCH ×2 (04:51→17:09)
[2017-08-12 05:19] LABS: MEAN CORPUSCULAR HEMOGLOBIN 31.5 pg (27.5-34.5); MEAN CORPUSCULAR VOLUME 98.2 fL (81-97); MEAN PLATELET VOLUME 10.4 fL (7.4-10.4); PLATELET COUNT 395 x10^3/uL (130-400); RED BLOOD COUNT 4.58 x10^6/uL (4.38-5.82); RED CELL DISTRIBUTION WIDTH 16.8 % (9.4-14.8)
[2017-08-12 05:25] LABS: CHLORIDE 109 mmol/L (98-107)
[2017-08-12 05:33] LABS: ALANINE AMINOTRANSFERASE 25 U/L (12-78); ALBUMIN 2.7 g/dL (3.4-5.0); ALKALINE PHOSPHATASE 69 U/L (45-117); ANION GAP 6 mmol/L (5-15); BILIRUBIN,TOTAL 0.5 mg/dL (0.2-1.0); CALCIUM 9.1 mg/dL (8.5-10.1); TOTAL PROTEIN 7.1 g/dL (6.4-8.2)
[2017-08-12 05:56] LABS: BASOPHILS # (AUTO) 0.08 x10^3/uL (0-0.1); BASOPHILS % (AUTO) 1 % (0-1); EOSINOPHILS % (AUTO) 1 % (1-7); LYMPHOCYTES # (AUTO) 1.93 x10^3/uL (1-3.4); LYMPHOCYTES % (AUTO) 16 % (22-44); MD SCAN; MONOCYTES # (AUTO) 1.33 x10^3/uL (0.2-0.8); MONOCYTES % (AUTO) 11 % (2-9); NEUTROPHILS # (AUTO) 8.59 x10^3/uL (1.8-6.8); NEUTROPHILS % (AUTO) 71 % (42-75)
[2017-08-12 07:54] VITALS: BP 123/80
[2017-08-12] MEDS: SUCRALFATE 1 GM/10 ML UDC PO SCH ×3 (08:26→16:00)
[2017-08-12] MEDS: FLUOXETINE HCL 20 MG CAPSULE PO SCH (08:26)
[2017-08-12] MEDS: CARBIDOPA/LEVODOPA 25 MG/100 MG TABLET PO SCH ×2 (08:27→16:49)
[2017-08-12] MEDS: TACROLIMUS 1 MG CAPSULE PO SCH (08:27)
[2017-08-12] MEDS: RIVAROXABAN 20 MG TABLET PO SCH (08:27)
[2017-08-12] MEDS: PANTOPROZOLE 40MG TABLET PO SCH (08:27)
[2017-08-12] MEDS: CEFDINIR 300 MG CAPSULE PO SCH (08:27)
[2017-08-12] MEDS: SENNA/DOCUSATE TABLET PO SCH (08:27)
[2017-08-12] MEDS ORDERED: AMOX1TAB12 PO (10:55)
[2017-08-12] MEDS ORDERED: AMLO5TAB2 PO (10:55)
[2017-08-12] MEDS ORDERED: TAMS-11 PO (10:55)
[2017-08-12] MEDS ORDERED: CEFD300C37 PO (10:55)
[2017-08-12] MEDS ORDERED: PRED5TAB PO (10:55)
[2017-08-12] MEDS ORDERED: METO25TA35 PO (10:55)
[2017-08-12] MEDS ORDERED: SULF500T47 PO (11:05)
[2017-08-12 13:02] VITALS: BP 128/88
[2017-08-15] MEDS ORDERED: NYST15CR2 TP (13:59)
[2017-08-15] MEDS ORDERED: OMEP10CA4 PO (13:59)
[2017-08-15] MEDS ORDERED: DOXY100C2 PO (13:59)
[2017-08-15] MEDS ORDERED: TEMA15CA6 PO (13:59)
[2017-08-15] MEDS ORDERED: CARB1TAB2 PO (13:59)
[2017-08-15] MEDS ORDERED: PROM25SU35 PR (13:59)
[2017-08-15] MEDS ORDERED: DIPH25CA61 PO (13:59)
[2017-08-15] MEDS ORDERED: AMLO10TA4 PO (13:59)
[2017-08-15] MEDS ORDERED: TAMS-11 PO (13:59)
[2017-08-19] MEDS ORDERED: METO25TA35 PO (12:17)
[2017-08-19] MEDS ORDERED: AMLO5TAB2 PO (12:17)
[2017-08-19] MEDS ORDERED: TAMS0.4C2 PO (14:41)
[2017-08-19] MEDS ORDERED: LOPE1TAB4 PO (14:43)
== END 2017-08-12 18:01 | DRG 871 ==
LOC: ED 13:45 → EDIP 13:59 → 4WST 15:13
PROVIDERS: ADMIT Internal Medicine; ATTEND Internal Medicine
DX: A41.9 Sepsis, unspecified organism (principal); E43 Unspecified severe protein-calorie malnutrition; G93.41 Metabolic encephalopathy; N17.9 Acute kidney failure, unspecified; I67.1 Cerebral aneurysm, nonruptured; D75.81 Myelofibrosis; T86.13 Kidney transplant infection; D68.69 Other thrombophilia; N18.6 End stage renal disease; N39.0 Urinary tract infection, site not specified; I13.11 Hypertensive heart and chronic kidney disease without heart failure, with stage 5 chronic kidney disease, or end stage renal disease; K50.90 Crohn's disease, unspecified, without complications; N03.9 Chronic nephritic syndrome with unspecified morphologic changes; N10 Acute pyelonephritis; D50.9 Iron deficiency anemia, unspecified; B95.2 Enterococcus as the cause of diseases classified elsewhere; C44.90 Unspecified malignant neoplasm of skin, unspecified; E21.3 Hyperparathyroidism, unspecified; Z68.25 Body mass index [BMI] 25.0-25.9, adult; E55.9 Vitamin D deficiency, unspecified; E78.5 Hyperlipidemia, unspecified; E86.0 Dehydration; F32.9 Major depressive disorder, single episode, unspecified; I72.4 Aneurysm of artery of lower extremity; I73.9 Peripheral vascular disease, unspecified; K21.0 Gastro-esophageal reflux disease with esophagitis; K57.30 Diverticulosis of large intestine without perforation or abscess without bleeding; K59.00 Constipation, unspecified; M10.9 Gout, unspecified; N25.0 Renal osteodystrophy; N40.1 Benign prostatic hyperplasia with lower urinary tract symptoms; Z16.11 Resistance to penicillins; Z79.01 Long term (current) use of anticoagulants; Z79.52 Long term (current) use of systemic steroids; Z79.899 Other long term (current) drug therapy; Z82.49 Family history of ischemic heart disease and other diseases of the circulatory system; Z85.6 Personal history of leukemia; Z86.718 Personal history of other venous thrombosis and embolism
CPT/HCPCS: 36415; 70450; 70544; 71045; 76776; 80048; 80053; 80197; 81001; 82306; 82330; 82607; 82746; 83605; 83735; 83880; 83970; 84100; 84436; 84439; 84443; 84484; 84550; 85025; 87040; 87077; 87086; 87186; 93005; 93306; 96365; J0696; J2405; J3475; J7507; 92523-GN; J0360; J2270; J7030; J7040; J7512; J7517

== ENCOUNTER 2017-10-11 11:25 | Inpatient (IN) | payer MEDICARE ==
[~2017-10-11] VITALS: Ht 180.3 cm; Wt 83.8 kg
[~2017-10-11 11:25] MED LIST changes: +ACYC15OI6 TP; +AMLO10TA4 PO; +AMLO5TAB2 PO; +AMOX1TAB12 PO; +B CO1TAB14 PO; +CARB1TAB2 PO; +CEFD300C37 PO; +CYCL1DRO OP; +DOXY100C2 PO; +LOPE1TAB4 PO; +MELO7.5T31 PO; +METO25TA35 PO; +NYST15CR2 TP; +OLOP2.5D OP; +OMEP10CA4 PO; +PRED5TAB PO; +PROM25SU35 PR; +RIVA20TA PO; +TAMS-11 PO; +TAMS0.4C2 PO; +TEMA15CA6 PO; +TOLN15CR TP; +VENL37.52 PO
[2017-10-11] MEDS ORDERED: SODIUM CHLORIDE 0.9% 1,000ML IVBOLUS ONE (12:00)
[2017-10-11] MEDS ORDERED: SODIUM CHLORIDE FLUSH 10ML SYR IVF ONE (12:00)
[2017-10-11] MEDS ORDERED: MORPHINE SULFATE 4 MG/ML, 1ML ONE ×2 (12:42→16:16)
[2017-10-11 12:43] LABS: ALANINE AMINOTRANSFERASE 19 U/L (12-78); ALBUMIN 3.3 g/dL (3.4-5.0); ANION GAP 12 mmol/L (5-15); CALCIUM 9.3 mg/dL (8.5-10.1); CHLORIDE 99 mmol/L (98-107); CREATININE 1.35 mg/dL (0.7-1.3)
[2017-10-11 12:45] LABS: ALKALINE PHOSPHATASE 57 U/L (45-117); BILIRUBIN,TOTAL 0.9 mg/dL (0.2-1.0); INTERNATIONAL NORMALIZED RATIO 1.08 (0.93-1.1); PROTHROMBIN TIME 11.2 Seconds (9.6-11.5); TOTAL PROTEIN 6.8 g/dL (6.4-8.2)
[2017-10-11] MEDS: MORPHINE SULFATE 4 MG/ML, 1ML IVPush PRN ×2 (12:48→16:26)
[2017-10-11 12:49] LABS: MEAN CORPUSCULAR HEMOGLOBIN 31.6 pg (27.5-34.5); MEAN CORPUSCULAR HGB CONC 32.4 g/dL (33.2-36.2); MEAN CORPUSCULAR VOLUME 97.7 fL (81-97); MEAN PLATELET VOLUME 10.4 fL (7.4-10.4); PLATELET COUNT 304 x10^3/uL (130-400); RED BLOOD COUNT 4.67 x10^6/uL (4.38-5.82); RED CELL DISTRIBUTION WIDTH 16.9 % (9.4-14.8)
[2017-10-11] MEDS ORDERED: SODIUM CHLORIDE 0.9%, 500ML IVBOLUS ONE (13:00)
[2017-10-11 13:04] LABS: BASOPHILS # (AUTO) 0.06 x10^3/uL (0-0.1); BASOPHILS % (AUTO) 1 % (0-1); EOSINOPHILS # (AUTO) 0.05 x10^3/uL (0-0.4); EOSINOPHILS % (AUTO) 0 % (1-7); LYMPHOCYTES # (AUTO) 1.59 x10^3/uL (1-3.4); LYMPHOCYTES % (AUTO) 13 % (22-44); MD SCAN; MONOCYTES # (AUTO) 1.58 x10^3/uL (0.2-0.8); MONOCYTES % (AUTO) 13 % (2-9); NEUTROPHILS % (AUTO) 73 % (42-75)
[2017-10-11 13:33] LABS: MICROSCOPIC AUTO
[2017-10-11 13:37] LABS: CULTURE INDICATED? NO
[2017-10-11] MEDS ORDERED: OMNIPAQUE 350 MG/ML, 100ML BOTTLE ONE (14:35)
[2017-10-11] MEDS ORDERED: LIDOCAINE GEL 2%, 5ML ONE (15:55)
[2017-10-11] MEDS ORDERED: hydrALAzine 20 MG/ML, 1ML IVPush PRN (16:30)
[2017-10-11] MEDS ORDERED: HYDROmorphone 1 MG/ML, 1ML IV ONE (16:30)
[2017-10-11 17:29] LABS: MICROSCOPIC NOT IND
[2017-10-11 17:30] VITALS: BP 147/94
[2017-10-11] MEDS ORDERED: HYDROmorphone 2 MG/ML, 1ML ONE (17:43)
[2017-10-11] MEDS: SUCRALFATE 1 GM/10 ML UDC PO SCH ×2 (17:49→20:19)
[2017-10-11] MEDS: LACTATED RINGERS 1,000 ML IV SCH (17:51)
[2017-10-11] MEDS: METOPROLOL TARTRATE 25 MG TABLET PO SCH (17:52)
[2017-10-11 18:50] VITALS: BP 152/81
[2017-10-11] MEDS ORDERED: POTASSIUM CHLORIDE 20 MEQ TAB.ER.PRT PO ONE (20:00)
[2017-10-11] MEDS ORDERED: AMLODIPINE 5 MG TABLET PO ONE (20:00)
[2017-10-11] MEDS: PANTOPROZOLE 40MG TABLET PO SCH (20:19)
[2017-10-11] MEDS: SULFASALAZINE 500 MG TABLET PO SCH (20:19)
[2017-10-11] MEDS: TEMAZEPAM 15 MG CAPSULE PO SCH (20:20)
[2017-10-11] MEDS: TACROLIMUS 1 MG CAPSULE PO SCH (20:20)
[2017-10-11] MEDS ORDERED: TACROLIMUS 1 MG CAPSULE PO SCH (21:00)
[2017-10-12 00:16] VITALS: BP 184/128
[2017-10-12] MEDS: LACTATED RINGERS 1,000 ML IV SCH ×3 (00:44→16:00)
[2017-10-12 00:45] VITALS: BP 148/87
[2017-10-12] MEDS: morphine SULFATE 10 MG/ML, 1ML IVPush PRN (02:05)
[2017-10-12 02:45] VITALS: BP 138/71
[2017-10-12 05:36] LABS: ALBUMIN 3.4 g/dL (3.4-5.0); ANION GAP 7 mmol/L (5-15); CALCIUM 9.2 mg/dL (8.5-10.1); CHLORIDE 104 mmol/L (98-107)
[2017-10-12 05:40] LABS: ALANINE AMINOTRANSFERASE 11 U/L (12-78); ALKALINE PHOSPHATASE 66 U/L (45-117); BILIRUBIN,TOTAL 1.3 mg/dL (0.2-1.0); CREATININE 1.15 mg/dL (0.7-1.3); TOTAL PROTEIN 7.4 g/dL (6.4-8.2)
[2017-10-12 06:22] VITALS: BP 145/100
[2017-10-12 06:27] LABS: MEAN CORPUSCULAR HEMOGLOBIN 32.2 pg (27.5-34.5); MEAN CORPUSCULAR HGB CONC 32.5 g/dL (33.2-36.2); MEAN CORPUSCULAR VOLUME 99.2 fL (81-97); PLATELET COUNT 323 x10^3/uL (130-400); RED CELL DISTRIBUTION WIDTH 17.4 % (9.4-14.8)
[2017-10-12] MEDS: METOPROLOL TARTRATE 25 MG TABLET PO SCH ×2 (06:27→17:09)
[2017-10-12 06:28] LABS: MD YES
[2017-10-12 06:30] LABS: <PLATELET ESTIMATE> ADEQUATE; ANISOCYTOSIS 1+; BASOS#(MANUAL) 0.14 x10^3/uL (0-0.1); BASOS% (MANUAL) 1 % (0-1); LARGE PLATELETS 1+; LYMPH#(MANUAL) 1.24 x10^3/uL (1-3.4); LYMPHS% (MANUAL) 9 % (22-44); MONOS% (MANUAL) 8 % (2-9); SEG#(MANUAL) 11.32 x10^3/uL (1.8-6.8); SEGS% (MANUAL) 82 % (42-75)
[2017-10-12 06:31] LABS: HOWELL-JOLLY BODIES 1+
[2017-10-12] MEDS ORDERED: MAGNESIUM SULFATE PMX 4GM/100M 100 ML IV ONE (08:00)
[2017-10-12] MEDS: HYDROXYUREA 500 MG CAPSULE PO SCH (09:00)
[2017-10-12] MEDS ORDERED: AMLODIPINE 5 MG TABLET PO SCH (09:00)
[2017-10-12] MEDS: TACROLIMUS 1 MG CAPSULE PO SCH ×3 (09:35→20:50)
[2017-10-12] MEDS: PANTOPROZOLE 40MG TABLET PO SCH ×3 (09:36→20:47)
[2017-10-12] MEDS: TAMSULOSIN 0.4 MG CAP.ER.24H PO SCH ×2 (09:36→11:01)
[2017-10-12] MEDS: SULFASALAZINE 500 MG TABLET PO SCH ×3 (09:36→11:00)
[2017-10-12] MEDS: SUCRALFATE 1 GM/10 ML UDC PO SCH ×5 (09:37→20:46)
[2017-10-12 14:38] VITALS: BP 147/73
[2017-10-12 19:23] VITALS: BP 137/80
[2017-10-12] MEDS: TEMAZEPAM 15 MG CAPSULE PO SCH (20:47)
[2017-10-12] MEDS: AMLODIPINE 5 MG TABLET PO SCH (20:48)
[2017-10-13] MEDS: LACTATED RINGERS 1,000 ML IV SCH ×4 (01:37→22:07)
[2017-10-13 01:55] VITALS: BP 151/82
[2017-10-13] MEDS: METOPROLOL TARTRATE 25 MG TABLET PO SCH ×2 (06:29→17:51)
[2017-10-13 06:34] LABS: MEAN CORPUSCULAR HEMOGLOBIN 32.3 pg (27.5-34.5); MEAN CORPUSCULAR HGB CONC 32.5 g/dL (33.2-36.2); MEAN CORPUSCULAR VOLUME 99.3 fL (81-97); MEAN PLATELET VOLUME 10.3 fL (7.4-10.4); PLATELET COUNT 274 x10^3/uL (130-400); RED BLOOD COUNT 4.37 x10^6/uL (4.38-5.82); RED CELL DISTRIBUTION WIDTH 17.4 % (9.4-14.8)
[2017-10-13 06:45] LABS: ANION GAP 7 mmol/L (5-15); CALCIUM 9.2 mg/dL (8.5-10.1); CHLORIDE 105 mmol/L (98-107); CREATININE 1.12 mg/dL (0.7-1.3)
[2017-10-13 07:14] LABS: BASOPHILS # (AUTO) 0.09 x10^3/uL (0-0.1); BASOPHILS % (AUTO) 1 % (0-1); EOSINOPHILS # (AUTO) 0.12 x10^3/uL (0-0.4); EOSINOPHILS % (AUTO) 1 % (1-7); LYMPHOCYTES # (AUTO) 2.17 x10^3/uL (1-3.4); LYMPHOCYTES % (AUTO) 19 % (22-44); MD MORPH REVIEW ONLY; MONOCYTES # (AUTO) 1.77 x10^3/uL (0.2-0.8); MONOCYTES % (AUTO) 16 % (2-9); NEUTROPHILS # (AUTO) 7.16 x10^3/uL (1.8-6.8); NEUTROPHILS % (AUTO) 63 % (42-75)
[2017-10-13 07:15] VITALS: BP 151/82
[2017-10-13 07:15] LABS: <PLATELET ESTIMATE> ADEQUATE; ANISOCYTOSIS 1+; LARGE PLATELETS 1+; TARGET CELLS 1+
[2017-10-13] MEDS: POTASSIUM CHLORIDE 20 MEQ PACKET PO SCH ×3 (08:19→16:26)
[2017-10-13] MEDS: SULFASALAZINE 500 MG TABLET PO SCH ×3 (08:20→17:51)
[2017-10-13] MEDS: TAMSULOSIN 0.4 MG CAP.ER.24H PO SCH (08:20)
[2017-10-13] MEDS: HYDROXYUREA 500 MG CAPSULE PO SCH (08:20)
[2017-10-13] MEDS: TACROLIMUS 1 MG CAPSULE PO SCH ×2 (08:20→21:10)
[2017-10-13] MEDS: SUCRALFATE 1 GM/10 ML UDC PO SCH ×4 (08:20→21:05)
[2017-10-13] MEDS: PANTOPROZOLE 40MG TABLET PO SCH ×2 (08:21→21:04)
[2017-10-13 13:45] VITALS: BP 106/68
[2017-10-13 19:18] VITALS: BP 156/95
[2017-10-13] MEDS: TEMAZEPAM 15 MG CAPSULE PO SCH (21:04)
[2017-10-13] MEDS: AMLODIPINE 5 MG TABLET PO SCH (21:04)
[2017-10-14 02:15] VITALS: BP 166/99
[2017-10-14] MEDS: METOPROLOL TARTRATE 25 MG TABLET PO SCH ×2 (05:03→17:12)
[2017-10-14] MEDS: LACTATED RINGERS 1,000 ML IV SCH (05:03)
[2017-10-14 05:48] LABS: MEAN CORPUSCULAR HEMOGLOBIN 31.7 pg (27.5-34.5); MEAN CORPUSCULAR VOLUME 99.1 fL (81-97); RED BLOOD COUNT 4.45 x10^6/uL (4.38-5.82); RED CELL DISTRIBUTION WIDTH 17.2 % (9.4-14.8)
[2017-10-14 05:49] LABS: ANION GAP 6 mmol/L (5-15); CALCIUM 9.1 mg/dL (8.5-10.1); CHLORIDE 106 mmol/L (98-107)
[2017-10-14 05:50] LABS: CREATININE 0.92 mg/dL (0.7-1.3)
[2017-10-14 06:16] LABS: BASOPHILS # (AUTO) 0.04 x10^3/uL (0-0.1); BASOPHILS % (AUTO) 1 % (0-1); EOSINOPHILS % (AUTO) 1 % (1-7); LYMPHOCYTES # (AUTO) 1.48 x10^3/uL (1-3.4); LYMPHOCYTES % (AUTO) 16 % (22-44); MD MORPH REVIEW ONLY; MEAN PLATELET VOLUME 10.7 fL (7.4-10.4); MONOCYTES % (AUTO) 12 % (2-9); NEUTROPHILS % (AUTO) 70 % (42-75); PLATELET COUNT 266 x10^3/uL (130-400)
[2017-10-14 06:17] LABS: <PLATELET ESTIMATE> ADEQUATE; ANISOCYTOSIS 1+; LARGE PLATELETS 1+; TARGET CELLS 1+
[2017-10-14] MEDS ORDERED: MAGNESIUM SULFATE PMX 4GM/100M 100 ML IV ONE (07:30)
[2017-10-14] MEDS ORDERED: POTASSIUM CHLORIDE 20 MEQ PACKET PO SCH (08:00)
[2017-10-14] MEDS: HYDROXYUREA 500 MG CAPSULE PO SCH (08:19)
[2017-10-14] MEDS: TACROLIMUS 1 MG CAPSULE PO SCH ×2 (08:20→21:25)
[2017-10-14] MEDS: SULFASALAZINE 500 MG TABLET PO SCH ×3 (08:20→17:12)
[2017-10-14] MEDS: PANTOPROZOLE 40MG TABLET PO SCH ×2 (08:20→21:25)
[2017-10-14] MEDS: TAMSULOSIN 0.4 MG CAP.ER.24H PO SCH (08:20)
[2017-10-14] MEDS: POTASSIUM CHLORIDE 20 MEQ PACKET PO SCH ×3 (08:20→16:04)
[2017-10-14] MEDS: SUCRALFATE 1 GM/10 ML UDC PO SCH ×4 (08:20→21:26)
[2017-10-14 08:46] VITALS: BP 145/93
[2017-10-14 13:26] VITALS: BP 136/82
[2017-10-14 20:00] VITALS: BP 162/100
[2017-10-14] MEDS: TEMAZEPAM 15 MG CAPSULE PO SCH (21:25)
[2017-10-14] MEDS: AMLODIPINE 5 MG TABLET PO SCH (21:26)
[2017-10-15 02:00] VITALS: BP 160/84
[2017-10-15] MEDS: METOPROLOL TARTRATE 25 MG TABLET PO SCH ×2 (05:51→17:16)
[2017-10-15 05:59] LABS: BASOPHILS # (AUTO) 0.13 x10^3/uL (0-0.1); BASOPHILS % (AUTO) 1 % (0-1); EOSINOPHILS # (AUTO) 0.11 x10^3/uL (0-0.4); EOSINOPHILS % (AUTO) 1 % (1-7); LYMPHOCYTES # (AUTO) 1.61 x10^3/uL (1-3.4); LYMPHOCYTES % (AUTO) 17 % (22-44); MD NO; MEAN CORPUSCULAR HEMOGLOBIN 32.3 pg (27.5-34.5); MEAN CORPUSCULAR HGB CONC 32.1 g/dL (33.2-36.2); MEAN CORPUSCULAR VOLUME 100.6 fL (81-97); MEAN PLATELET VOLUME 10.3 fL (7.4-10.4); MONOCYTES # (AUTO) 1.11 x10^3/uL (0.2-0.8); MONOCYTES % (AUTO) 12 % (2-9); NEUTROPHILS # (AUTO) 6.56 x10^3/uL (1.8-6.8); NEUTROPHILS % (AUTO) 69 % (42-75); PLATELET COUNT 295 x10^3/uL (130-400); RED BLOOD COUNT 4.64 x10^6/uL (4.38-5.82); RED CELL DISTRIBUTION WIDTH 17.5 % (9.4-14.8)
[2017-10-15 06:08] LABS: ANION GAP 5 mmol/L (5-15); CALCIUM 9.5 mg/dL (8.5-10.1); CHLORIDE 106 mmol/L (98-107); CREATININE 1.04 mg/dL (0.7-1.3)
[2017-10-15 07:20] VITALS: BP 155/109
[2017-10-15] MEDS ORDERED: MAGNESIUM CITRATE 300ML ORAL SOL PO PRN (07:30)
[2017-10-15] MEDS: HYDROXYUREA 500 MG CAPSULE PO SCH (08:50)
[2017-10-15] MEDS: SUCRALFATE 1 GM/10 ML UDC PO SCH ×4 (08:51→20:36)
[2017-10-15] MEDS: TACROLIMUS 1 MG CAPSULE PO SCH ×2 (08:51→20:36)
[2017-10-15] MEDS: PANTOPROZOLE 40MG TABLET PO SCH ×2 (08:51→20:36)
[2017-10-15] MEDS: TAMSULOSIN 0.4 MG CAP.ER.24H PO SCH (08:51)
[2017-10-15] MEDS: SULFASALAZINE 500 MG TABLET PO SCH ×3 (08:51→17:16)
[2017-10-15] MEDS: POTASSIUM CHLORIDE 20 MEQ PACKET PO SCH ×3 (08:52→17:16)
[2017-10-15 14:00] VITALS: BP 145/84
[2017-10-15 20:00] VITALS: BP 136/88
[2017-10-15] MEDS: AMLODIPINE 5 MG TABLET PO SCH (20:36)
[2017-10-15] MEDS: TEMAZEPAM 15 MG CAPSULE PO SCH (20:37)
[2017-10-16] VITALS (7 sets, daily range): BP systolic 136–165; BP diastolic 75–118
[2017-10-16] MEDS: LABETALOL 5MG/ML, 20ML IVPush PRN (03:07)
[2017-10-16] MEDS: morphine SULFATE 10 MG/ML, 1ML IVPush PRN ×3 (04:49→17:13)
[2017-10-16] MEDS: METOPROLOL TARTRATE 25 MG TABLET PO SCH ×2 (05:06→17:49)
[2017-10-16] MEDS: PROMETHAZINE 25MG TABLET PO PRN (06:25)
[2017-10-16] MEDS: SUCRALFATE 1 GM/10 ML UDC PO SCH ×4 (08:57→22:09)
[2017-10-16] MEDS: TACROLIMUS 1 MG CAPSULE PO SCH ×2 (08:57→22:11)
[2017-10-16] MEDS: POTASSIUM CHLORIDE 20 MEQ PACKET PO SCH ×3 (08:57→15:49)
[2017-10-16] MEDS: PANTOPROZOLE 40MG TABLET PO SCH ×2 (08:58→22:10)
[2017-10-16] MEDS: TAMSULOSIN 0.4 MG CAP.ER.24H PO SCH (08:58)
[2017-10-16] MEDS: SULFASALAZINE 500 MG TABLET PO SCH ×3 (08:58→17:49)
[2017-10-16] MEDS: ACETAMINOPHEN 325 MG TABLET PO PRN (13:57)
[2017-10-16] MEDS: HYDROXYUREA 500 MG CAPSULE PO SCH (15:47)
[2017-10-16] MEDS: TEMAZEPAM 15 MG CAPSULE PO SCH (22:10)
[2017-10-16] MEDS: AMLODIPINE 5 MG TABLET PO SCH (22:11)
[2017-10-16] MEDS ORDERED: ALFU10TA PO (23:09)
[2017-10-17 02:00] VITALS: BP 111/79
[2017-10-17 06:52] VITALS: BP 171/98
[2017-10-17 06:58] VITALS: BP 157/103
[2017-10-17] MEDS: METOPROLOL TARTRATE 25 MG TABLET PO SCH ×2 (07:01→17:05)
[2017-10-17] MEDS: TACROLIMUS 1 MG CAPSULE PO SCH ×2 (08:26→20:19)
[2017-10-17] MEDS: SULFASALAZINE 500 MG TABLET PO SCH ×3 (08:27→17:05)
[2017-10-17] MEDS: POTASSIUM CHLORIDE 20 MEQ PACKET PO SCH ×3 (08:27→17:05)
[2017-10-17] MEDS: SUCRALFATE 1 GM/10 ML UDC PO SCH ×4 (08:28→20:21)
[2017-10-17] MEDS: PANTOPROZOLE 40MG TABLET PO SCH ×2 (08:28→20:18)
[2017-10-17] MEDS: TAMSULOSIN 0.4 MG CAP.ER.24H PO SCH (08:28)
[2017-10-17] MEDS: HYDROXYUREA 500 MG CAPSULE PO SCH (08:34)
[2017-10-17 13:19] VITALS: BP 128/78
[2017-10-17] MEDS: TEMAZEPAM 15 MG CAPSULE PO SCH (20:19)
[2017-10-17] MEDS: AMLODIPINE 5 MG TABLET PO SCH (20:21)
[2017-10-17 20:34] VITALS: BP 152/107
[2017-10-17 22:24] VITALS: BP_SYST 147; BP_SYST 180; BP_DIAS 96
[2017-10-17] MEDS: ACETAMINOPHEN 325 MG TABLET PO PRN (22:27)
[2017-10-17] MEDS: LABETALOL 5MG/ML, 20ML IVPush PRN (22:28)
[2017-10-18 02:17] VITALS: BP 159/91
[2017-10-18] MEDS: METOPROLOL TARTRATE 25 MG TABLET PO SCH ×2 (05:11→18:02)
[2017-10-18] MEDS: SUCRALFATE 1 GM/10 ML UDC PO SCH ×5 (08:06→21:00)
[2017-10-18] MEDS: POTASSIUM CHLORIDE 20 MEQ PACKET PO SCH ×3 (08:07→18:02)
[2017-10-18] MEDS: SULFASALAZINE 500 MG TABLET PO SCH ×3 (08:07→18:02)
[2017-10-18] MEDS: TAMSULOSIN 0.4 MG CAP.ER.24H PO SCH (08:08)
[2017-10-18] MEDS: TACROLIMUS 1 MG CAPSULE PO SCH ×2 (08:08→19:35)
[2017-10-18] MEDS: PANTOPROZOLE 40MG TABLET PO SCH ×2 (08:08→19:35)
[2017-10-18] MEDS: HYDROXYUREA 500 MG CAPSULE PO SCH (08:12)
[2017-10-18] MEDS: ACETAMINOPHEN 325 MG TABLET PO PRN (08:14)
[2017-10-18 08:35] VITALS: BP 152/91
[2017-10-18] MEDS: PROMETHAZINE 25MG TABLET PO PRN (11:45)
[2017-10-18] MEDS ORDERED: OXYcodone/APAP 10/325MG TABLET PO ONE (12:00)
[2017-10-18 12:34] VITALS: BP 162/104
[2017-10-18 19:30] VITALS: BP 136/91
[2017-10-18] MEDS: AMLODIPINE 5 MG TABLET PO SCH (19:35)
[2017-10-18] MEDS: TEMAZEPAM 15 MG CAPSULE PO SCH (19:36)
[2017-10-19 02:35] VITALS: BP 152/93
[2017-10-19] MEDS: METOPROLOL TARTRATE 25 MG TABLET PO SCH ×2 (05:54→17:46)
[2017-10-19] MEDS: SUCRALFATE 1 GM/10 ML UDC PO SCH ×5 (05:54→20:26)
[2017-10-19 07:00] VITALS: BP 156/108
[2017-10-19] MEDS: SULFASALAZINE 500 MG TABLET PO SCH ×3 (09:14→17:47)
[2017-10-19] MEDS: TAMSULOSIN 0.4 MG CAP.ER.24H PO SCH (09:14)
[2017-10-19] MEDS: HYDROXYUREA 500 MG CAPSULE PO SCH (09:14)
[2017-10-19] MEDS: PANTOPROZOLE 40MG TABLET PO SCH ×2 (09:15→20:24)
[2017-10-19] MEDS: POTASSIUM CHLORIDE 20 MEQ PACKET PO SCH ×3 (09:15→17:46)
[2017-10-19] MEDS: HYDROcodone/APAP 5/325 TABLET PO PRN (09:15)
[2017-10-19] MEDS: TACROLIMUS 1 MG CAPSULE PO SCH ×2 (09:15→20:25)
[2017-10-19] MEDS: PROMETHAZINE 25MG TABLET PO PRN (11:40)
[2017-10-19 11:46] VITALS: BP 112/73
[2017-10-19 14:49] VITALS: BP 108/82
[2017-10-19 18:50] VITALS: BP 149/91
[2017-10-19] MEDS: AMLODIPINE 5 MG TABLET PO SCH (20:25)
[2017-10-19] MEDS: TEMAZEPAM 15 MG CAPSULE PO SCH (20:25)
[2017-10-20 02:15] VITALS: BP 146/77
[2017-10-20] MEDS: METOPROLOL TARTRATE 25 MG TABLET PO SCH (05:16)
[2017-10-20] MEDS: SUCRALFATE 1 GM/10 ML UDC PO SCH ×3 (06:45→16:00)
[2017-10-20 07:48] VITALS: BP 162/107
[2017-10-20] MEDS: TACROLIMUS 1 MG CAPSULE PO SCH (08:11)
[2017-10-20] MEDS: SULFASALAZINE 500 MG TABLET PO SCH ×2 (08:11→13:32)
[2017-10-20] MEDS: POTASSIUM CHLORIDE 20 MEQ PACKET PO SCH ×2 (08:12→12:00)
[2017-10-20] MEDS: TAMSULOSIN 0.4 MG CAP.ER.24H PO SCH (08:12)
[2017-10-20] MEDS: PANTOPROZOLE 40MG TABLET PO SCH (08:12)
[2017-10-20] MEDS: HYDROcodone/APAP 5/325 TABLET PO PRN ×2 (08:17→15:58)
[2017-10-20] MEDS: HYDROXYUREA 500 MG CAPSULE PO SCH (09:56)
[2017-10-20 12:58] VITALS: BP 121/79
== END 2017-10-20 17:31 | disposition home health service (06) | DRG 556 ==
LOC: ED 12:29 → EDIP 15:18 → 4WST 17:25
PROVIDERS: ADMIT Internal Medicine; ATTEND Internal Medicine
PROC: 0T9B70Z Drainage of Bladder with Drainage Device, Via Natural or Artificial Opening (ICD-10-PCS; principal; 2017-10-11)
DX: M79.81 Nontraumatic hematoma of soft tissue (principal); D75.81 Myelofibrosis; I48.0 Paroxysmal atrial fibrillation; D68.69 Other thrombophilia; E87.1 Hypo-osmolality and hyponatremia; R65.10 Systemic inflammatory response syndrome (SIRS) of non-infectious origin without acute organ dysfunction; N13.30 Unspecified hydronephrosis; N13.8 Other obstructive and reflux uropathy; Z94.0 Kidney transplant status; K50.90 Crohn's disease, unspecified, without complications; K92.2 Gastrointestinal hemorrhage, unspecified; N18.3 Chronic kidney disease, stage 3 (moderate); E87.6 Hypokalemia; D72.829 Elevated white blood cell count, unspecified; E78.5 Hyperlipidemia, unspecified; I12.9 Hypertensive chronic kidney disease with stage 1 through stage 4 chronic kidney disease, or unspecified chronic kidney disease; I49.3 Ventricular premature depolarization; I72.3 Aneurysm of iliac artery; I73.9 Peripheral vascular disease, unspecified; K21.0 Gastro-esophageal reflux disease with esophagitis; K80.20 Calculus of gallbladder without cholecystitis without obstruction; N40.1 Benign prostatic hyperplasia with lower urinary tract symptoms; Z75.1 Person awaiting admission to adequate facility elsewhere; Z86.718 Personal history of other venous thrombosis and embolism; Z90.49 Acquired absence of other specified parts of digestive tract; Z85.828 Personal history of other malignant neoplasm of skin; Z82.49 Family history of ischemic heart disease and other diseases of the circulatory system; Z79.899 Other long term (current) drug therapy; Z79.01 Long term (current) use of anticoagulants
CPT/HCPCS: 36415; 51702; 74177; 76776; 80048; 80053; 80197; 81001; 81003; 83735; 85025; 85610; 85730; 87040; 93005; 96361; 96374; 96376; J1170; J7507; Q0169; Q9967; J0360; J2270; J3475; J7030; J7040; J7120; J7512; J7517

== ENCOUNTER 2017-10-25 21:41 | Inpatient (IN) | payer MEDICARE ==
[~2017-10-25] VITALS: Ht 180.3 cm; Wt 77.6 kg
[~2017-10-25 21:41] MED LIST changes: +ALFU10TA PO
[2017-10-25] MEDS ORDERED: morphine SULFATE 10 MG/ML, 1ML IVPush ONE (23:00)
[2017-10-25] MEDS ORDERED: FAMOTIDINE 20 MG/2 ML IVPush ONE (23:00)
[2017-10-25 23:06] LABS: INTERNATIONAL NORMALIZED RATIO 0.98 (0.93-1.1); PROTHROMBIN TIME 10.1 Seconds (9.6-11.5)
[2017-10-25 23:07] LABS: ALBUMIN 3.2 g/dL (3.4-5.0); ANION GAP 8 mmol/L (5-15); CALCIUM 8.9 mg/dL (8.5-10.1); CHLORIDE 105 mmol/L (98-107); CREATININE 1.21 mg/dL (0.7-1.3)
[2017-10-25 23:11] LABS: ALKALINE PHOSPHATASE 81 U/L (45-117); TOTAL PROTEIN 7.7 g/dL (6.4-8.2); TROPONIN I < 0.015 ng/mL (0.000-0.045)
[2017-10-25 23:12] LABS: ANISOCYTOSIS 1+; BASOPHILS # (AUTO) 0.12 x10^3/uL (0-0.1); BASOPHILS % (AUTO) 1 % (0-1); EOSINOPHILS # (AUTO) 0.04 x10^3/uL (0-0.4); EOSINOPHILS % (AUTO) 0 % (1-7); LYMPHOCYTES # (AUTO) 1.27 x10^3/uL (1-3.4); LYMPHOCYTES % (AUTO) 12 % (22-44); MD MORPH REVIEW ONLY; MEAN CORPUSCULAR HEMOGLOBIN 31.4 pg (27.5-34.5); MEAN CORPUSCULAR HGB CONC 31.7 g/dL (33.2-36.2); MEAN PLATELET VOLUME 10.8 fL (7.4-10.4); MONOCYTES # (AUTO) 1.31 x10^3/uL (0.2-0.8); MONOCYTES % (AUTO) 12 % (2-9); NEUTROPHILS # (AUTO) 8.05 x10^3/uL (1.8-6.8); NEUTROPHILS % (AUTO) 75 % (42-75); PLATELET COUNT 391 x10^3/uL (130-400); RED BLOOD COUNT 5.01 x10^6/uL (4.38-5.82); RED CELL DISTRIBUTION WIDTH 17.2 % (9.4-14.8)
[2017-10-25] MEDS ORDERED: MORPHINE SULFATE 4 MG/ML, 1ML ONE (23:12)
[2017-10-25] MEDS ORDERED: FAMOTIDINE 20 MG/2 ML ONE (23:12)
[2017-10-25 23:13] LABS: <PLATELET ESTIMATE> ADEQUATE; LARGE PLATELETS 1+
[2017-10-25 23:38] LABS: ALANINE AMINOTRANSFERASE 37 U/L (12-78); BILIRUBIN,TOTAL 0.5 mg/dL (0.2-1.0)
[2017-10-26] MEDS ORDERED: OMNIPAQUE 350 MG/ML, 100ML BOTTLE ONE (00:04)
[2017-10-26] MEDS ORDERED: MORPHINE SULFATE 4 MG/ML, 1ML ONE (01:55)
[2017-10-26] MEDS: MORPHINE SULFATE 4 MG/ML, 1ML IVPush PRN ×2 (01:57→04:20)
[2017-10-26 03:55] VITALS: BP 163/103
[2017-10-26 04:40] VITALS: BP 181/111
[2017-10-26] MEDS ORDERED: hydrALAzine 20 MG/ML, 1ML IV PRN (05:00)
[2017-10-26] MEDS ORDERED: morphine SULFATE 10 MG/ML, 1ML IVPush PRN (05:00)
[2017-10-26 05:34] VITALS: BP 121/64
[2017-10-26] MEDS ORDERED: ONDANSETRON 2MG/ML, 2ML IVPush PRN (07:00)
[2017-10-26] MEDS ORDERED: PROMETHAZINE 25 MG/ML, 1ML IM PRN (07:00)
[2017-10-26] MEDS ORDERED: BISACODYL 10 MG SUPP PR PRN (07:00)
[2017-10-26] MEDS ORDERED: LABETALOL 5MG/ML, 20ML IVPush PRN (07:00)
[2017-10-26] MEDS ORDERED: hydrALAzine 20 MG/ML, 1ML IVPush PRN (07:00)
[2017-10-26] MEDS ORDERED: DOCUSATE 100 MG CAPSULE PO PRN (07:00)
[2017-10-26] MEDS ORDERED: ACETAMINOPHEN 325 MG TABLET PO PRN (07:00)
[2017-10-26] MEDS ORDERED: ONDANSETRON ODT 4 MG PO PRN ×2 (07:00)
[2017-10-26] MEDS ORDERED: POLYETHYLENE GLYCOL 17 GM PACKET PO PRN (07:00)
[2017-10-26 07:22] VITALS: BP 123/71
[2017-10-26] MEDS: CEFOTETAN PMX 2GM/50ML 50 ML IV SCH (09:07)
[2017-10-26] MEDS: SODIUM CHLORIDE 0.9% 1,000 ML IV SCH ×2 (09:07→16:53)
[2017-10-26] MEDS: SUCRALFATE 1 GM/10 ML UDC PO SCH ×4 (09:09→19:50)
[2017-10-26] MEDS: morphine SULFATE 10 MG/ML, 1ML IVPush PRN ×2 (09:09→17:21)
[2017-10-26] MEDS: AMLODIPINE 5 MG TABLET PO SCH (09:12)
[2017-10-26] MEDS: TAMSULOSIN 0.4 MG CAP.ER.24H PO SCH (09:12)
[2017-10-26] MEDS: SULFASALAZINE 500 MG TABLET PO SCH ×3 (09:12→17:20)
[2017-10-26] MEDS: TACROLIMUS 1 MG CAPSULE PO SCH ×2 (09:12→19:50)
[2017-10-26] MEDS: PANTOPROZOLE 40MG TABLET PO SCH ×2 (09:12→19:51)
[2017-10-26] MEDS: GABAPENTIN 100 MG CAPSULE PO SCH ×2 (09:15→15:02)
[2017-10-26] MEDS: TEMPLATE NON-FORMULARY MED. (Cyclosporine (Restasis) 1 DROP) OP SCH ×2 (09:16→21:00)
[2017-10-26] MEDS: TEMPLATE NON-FORMULARY MED. (Alfuzosin Hcl** (Uroxatral**) 10 MG) HOMEMEDPO SCH (09:16)
[2017-10-26] MEDS: METOPROLOL TARTRATE 25 MG TABLET PO SCH ×2 (09:16→17:21)
[2017-10-26] MEDS: MULTIVITS,STRESS FORMULA 1 TABLET PO SCH (09:17)
[2017-10-26] MEDS: NYSTATIN/TRIAMCINOLONE CRM 15GM TP SCH (09:17)
[2017-10-26] MEDS: HYDROXYUREA 500 MG CAPSULE PO SCH (09:17)
[2017-10-26] MEDS: METRONIDAZOLE PMX 500MG/100ML 100 ML IV SCH ×2 (10:37→17:20)
[2017-10-26 11:27] LABS: TROPONIN I < 0.015 ng/mL (0.000-0.045)
[2017-10-26 12:01] LABS: FREE T4 (FREE THYROXINE) 1.26 ng/dL (0.76-1.46); THYROID STIMULATING HORMONE 1.88 mIU/L (0.358-3.740)
[2017-10-26 12:43] LABS: HEMOGLOBIN A1C 5.9 % (4.2-6.3)
[2017-10-26 13:21] VITALS: BP 153/78
[2017-10-26] MEDS ORDERED: SINCALIDE (KINEVAC) 5 MCG ONE (16:21)
[2017-10-26 18:51] LABS: TROPONIN I < 0.015 ng/mL (0.000-0.045)
[2017-10-26 19:08] VITALS: BP 125/76
[2017-10-26] MEDS ORDERED: TEMAZEPAM 15 MG CAPSULE PO SCH (21:00)
[2017-10-27] MEDS: GABAPENTIN 100 MG CAPSULE PO SCH ×3 (00:20→17:01)
[2017-10-27] MEDS: CEFOTETAN PMX 2GM/50ML 50 ML IV SCH ×2 (01:06→13:29)
[2017-10-27 02:14] VITALS: BP 134/69
[2017-10-27] MEDS: METRONIDAZOLE PMX 500MG/100ML 100 ML IV SCH ×2 (02:41→10:51)
[2017-10-27 04:30] LABS: MEAN CORPUSCULAR HEMOGLOBIN 32.1 pg (27.5-34.5); MEAN CORPUSCULAR HGB CONC 32.6 g/dL (33.2-36.2); MEAN CORPUSCULAR VOLUME 98.6 fL (81-97); MEAN PLATELET VOLUME 10.4 fL (7.4-10.4); PLATELET COUNT 352 x10^3/uL (130-400); RED BLOOD COUNT 4.39 x10^6/uL (4.38-5.82); RED CELL DISTRIBUTION WIDTH 16.9 % (9.4-14.8)
[2017-10-27 04:40] LABS: ALANINE AMINOTRANSFERASE 31 U/L (12-78); ALBUMIN 2.6 g/dL (3.4-5.0); ANION GAP 7 mmol/L (5-15); CALCIUM 9.1 mg/dL (8.5-10.1); CHLORIDE 105 mmol/L (98-107); CHOLESTEROL, TOTAL 166 mg/dL (140-239)
[2017-10-27] MEDS: METOPROLOL TARTRATE 25 MG TABLET PO SCH ×2 (04:42→17:04)
[2017-10-27 04:46] LABS: ALKALINE PHOSPHATASE 63 U/L (45-117); BILIRUBIN,TOTAL 0.5 mg/dL (0.2-1.0); HDL CHOL % 20 % (26-37); HDL CHOLESTEROL (DIRECT) 33 mg/dL (40-60); LDL CHOLESTEROL,CALCULATED 111 mg/dL (54-169); LDL/HDL RATIO 3.4 (0.5-3.0); TOTAL PROTEIN 6.4 g/dL (6.4-8.2); TRIGLYCERIDES 112 mg/dL (50-200); VLDL CHOLESTEROL 22 mg/dL (0-25)
[2017-10-27 05:37] LABS: BASOPHILS # (AUTO) 0.09 x10^3/uL (0-0.1); BASOPHILS % (AUTO) 1 % (0-1); EOSINOPHILS # (AUTO) 0.06 x10^3/uL (0-0.4); EOSINOPHILS % (AUTO) 1 % (1-7); LYMPHOCYTES # (AUTO) 1.35 x10^3/uL (1-3.4); LYMPHOCYTES % (AUTO) 11 % (22-44); MD SCAN; MONOCYTES # (AUTO) 1.66 x10^3/uL (0.2-0.8); MONOCYTES % (AUTO) 14 % (2-9); NEUTROPHILS # (AUTO) 9.08 x10^3/uL (1.8-6.8); NEUTROPHILS % (AUTO) 74 % (42-75)
[2017-10-27] MEDS: SUCRALFATE 1 GM/10 ML UDC PO SCH ×3 (07:36→17:01)
[2017-10-27 07:57] VITALS: BP 172/98
[2017-10-27] MEDS: SULFASALAZINE 500 MG TABLET PO SCH ×3 (08:14→17:01)
[2017-10-27] MEDS: OXYcodone IR 5MG TABLET PO PRN ×3 (09:00→14:36)
[2017-10-27] MEDS: morphine SULFATE 10 MG/ML, 1ML IVPush PRN ×2 (09:13→12:22)
[2017-10-27] MEDS: TEMPLATE NON-FORMULARY MED. (Cyclosporine (Restasis) 1 DROP) OP SCH (09:25)
[2017-10-27] MEDS: TEMPLATE NON-FORMULARY MED. (Alfuzosin Hcl** (Uroxatral**) 10 MG) HOMEMEDPO SCH (09:25)
[2017-10-27] MEDS: NYSTATIN/TRIAMCINOLONE CRM 15GM TP SCH (09:26)
[2017-10-27 09:27] VITALS: BP 172/74
[2017-10-27] MEDS: HYDROXYUREA 500 MG CAPSULE PO SCH (09:34)
[2017-10-27] MEDS: MULTIVITS,STRESS FORMULA 1 TABLET PO SCH (09:34)
[2017-10-27] MEDS: PANTOPROZOLE 40MG TABLET PO SCH (09:41)
[2017-10-27] MEDS: AMLODIPINE 5 MG TABLET PO SCH (09:41)
[2017-10-27] MEDS: TAMSULOSIN 0.4 MG CAP.ER.24H PO SCH (09:42)
[2017-10-27] MEDS: TACROLIMUS 1 MG CAPSULE PO SCH (09:42)
[2017-10-27 09:48] LABS: TROPONIN I < 0.015 ng/mL (0.000-0.045)
[2017-10-27] MEDS ORDERED: MAGNESIUM SULFATE PMX 2GM/50ML 50 ML IV ONE (10:00)
[2017-10-27 13:15] VITALS: BP 104/65
[2017-10-27 16:59] VITALS: BP 134/82
[2017-10-27] MEDS ORDERED: [UNRECOGNIZED DRUG - CODE] IV (17:02)
[2017-10-27] MEDS ORDERED: METR500P3 IV (17:02)
[2017-10-27] MEDS ORDERED: DOXY100T PO (17:16)
[2017-10-27] MEDS ORDERED: DOXYCYCLINE 100MG TABLET PO SCH (21:00)
== END 2017-10-27 19:00 | disposition short-term general hospital (02) | DRG 444 ==
LOC: ED 10-26 00:53 → EDIP 10-26 02:36 → 3NW 10-26 03:48
PROVIDERS: ADMIT Internal Medicine; ATTEND Internal Medicine
DX: K80.64 Calculus of gallbladder and bile duct with chronic cholecystitis without obstruction (principal); J18.9 Pneumonia, unspecified organism; C94.6 Myelodysplastic disease, not elsewhere classified; D68.59 Other primary thrombophilia; E44.0 Moderate protein-calorie malnutrition; K50.90 Crohn's disease, unspecified, without complications; D75.81 Myelofibrosis; Z94.0 Kidney transplant status; I10 Essential (primary) hypertension; G89.29 Other chronic pain; I48.91 Unspecified atrial fibrillation; I73.9 Peripheral vascular disease, unspecified; K21.9 Gastro-esophageal reflux disease without esophagitis; M19.90 Unspecified osteoarthritis, unspecified site; M47.814 Spondylosis without myelopathy or radiculopathy, thoracic region; M48.02 Spinal stenosis, cervical region; M48.04 Spinal stenosis, thoracic region; N40.1 Benign prostatic hyperplasia with lower urinary tract symptoms; R33.8 Other retention of urine; Z68.23 Body mass index [BMI] 23.0-23.9, adult; Z85.828 Personal history of other malignant neoplasm of skin; Z86.718 Personal history of other venous thrombosis and embolism; Z90.81 Acquired absence of spleen
CPT/HCPCS: 36415; 71045; 71275; 72156; 72157; 76700; 78227; 80053; 80061; 83036; 83735; 83880; 84439; 84443; 84484; 85025; 85610; 85730; 93005; J7507; Q0162; Q9967; A9537; C9898; J0360; J2270; J2805; J3475; J7030; J7512; J7517; S0028; S0074

== ENCOUNTER 2017-11-03 13:02 | Inpatient (IN) | payer MEDICARE ==
[~2017-11-03] VITALS: Ht 180.3 cm; Wt 81.7 kg
[~2017-11-03 13:02] MED LIST changes: +DOXY100T PO; +METR500P3 IV; +[UNRECOGNIZED DRUG - CODE] IV
[2017-11-03 17:26] VITALS: BP 153/88
[2017-11-03 19:22] VITALS: BP 167/106
[2017-11-03] MEDS ORDERED: SODIUM CHLORIDE 0.9% 1,000 ML IV SCH (19:24)
[2017-11-03] MEDS ORDERED: ONDANSETRON 2MG/ML, 2ML IVPush PRN (19:30)
[2017-11-03] MEDS ORDERED: hydrALAzine 20 MG/ML, 1ML IVPush PRN (19:30)
[2017-11-03] MEDS ORDERED: PLEASE ENTER HEIGHT AND WEIGHT MC SCH (20:00)
[2017-11-03] MEDS ORDERED: CARB1TAB2 PO (20:42)
[2017-11-03 20:44] LABS: ANION GAP 6 mmol/L (5-15); CHLORIDE 104 mmol/L (98-107); CREATININE 1.04 mg/dL (0.7-1.3)
[2017-11-03 21:04] LABS: MD YES; MEAN CORPUSCULAR HEMOGLOBIN 31.7 pg (27.5-34.5); MEAN CORPUSCULAR HGB CONC 32.1 g/dL (33.2-36.2); MEAN CORPUSCULAR VOLUME 98.8 fL (81-97); MEAN PLATELET VOLUME 10.9 fL (7.4-10.4); PLATELET COUNT 412 x10^3/uL (130-400); RED BLOOD COUNT 4.72 x10^6/uL (4.38-5.82); RED CELL DISTRIBUTION WIDTH 16.3 % (9.4-14.8)
[2017-11-03 21:07] LABS: <PLATELET ESTIMATE> ADEQUATE; ANISOCYTOSIS 1+; BASOS#(MANUAL) 0.18 x10^3/uL (0-0.1); BASOS% (MANUAL) 2 % (0-1); EOS#(MANUAL) 0.27 x10^3/uL (0.0-0.4); EOS% (MANUAL) 3 % (1-7); GIANT PLATELETS 1+; LARGE PLATELETS 1+; LYMPH#(MANUAL) 2.16 x10^3/uL (1-3.4); LYMPHS% (MANUAL) 24 % (22-44); MONOS#(MANUAL) 1.26 x10^3/uL (0.3-2.7); MONOS% (MANUAL) 14 % (2-9); SEG#(MANUAL) 5.13 x10^3/uL (1.8-6.8); SEGS% (MANUAL) 57 % (42-75)
[2017-11-03] MEDS: TEMAZEPAM 15 MG CAPSULE PO SCH (22:00)
[2017-11-03] MEDS: ACETAMINOPHEN 325 MG TABLET PO PRN (22:02)
[2017-11-03] MEDS: TACROLIMUS 1 MG CAPSULE PO SCH (22:24)
[2017-11-03] MEDS: GABAPENTIN 100 MG CAPSULE PO SCH (22:24)
[2017-11-04 04:30] VITALS: BP 147/97
[2017-11-04] MEDS: HYDROcodone/APAP 5/325 TABLET PO PRN (04:34)
[2017-11-04] MEDS: GABAPENTIN 100 MG CAPSULE PO SCH ×3 (05:06→21:03)
[2017-11-04] MEDS: METOPROLOL TARTRATE 25 MG TABLET PO SCH ×2 (05:06→17:36)
[2017-11-04] MEDS: SUCRALFATE 1 GM/10 ML UDC PO SCH ×4 (08:32→21:03)
[2017-11-04] MEDS: TAMSULOSIN 0.4 MG CAP.ER.24H PO SCH (08:33)
[2017-11-04] MEDS: TACROLIMUS 1 MG CAPSULE PO SCH ×2 (08:34→21:05)
[2017-11-04] MEDS: AMLODIPINE 5 MG TABLET PO SCH (08:34)
[2017-11-04 08:39] VITALS: BP 140/92
[2017-11-04] MEDS: TEMPLATE NON-FORMULARY MED. (Cyclosporine (Restasis) 1 DROP) OP SCH ×2 (09:00→21:00)
[2017-11-04] MEDS: HYDROXYUREA 500 MG CAPSULE PO SCH (09:00)
[2017-11-04] MEDS ORDERED: TAMSULOSIN 0.4 MG CAP.ER.24H PO SCH (09:00)
[2017-11-04 13:23] VITALS: BP 142/98
[2017-11-04] MEDS ORDERED: SODIUM PHOSPHATE 20 MMOL in SODIUM CHLORIDE 0.9% 500 ML IV ONE (20:30)
[2017-11-04 20:57] VITALS: BP 142/89
[2017-11-04] MEDS ORDERED: CARBIDOPA/LEVODOPA 25 MG/100 MG TABLET PO SCH (21:00)
[2017-11-04] MEDS: TEMAZEPAM 15 MG CAPSULE PO SCH (21:03)
[2017-11-04] MEDS: ACETAMINOPHEN 325 MG TABLET PO PRN (21:15)
[2017-11-05 02:23] VITALS: BP 159/95
[2017-11-05] MEDS: METOPROLOL TARTRATE 25 MG TABLET PO SCH (06:05)
[2017-11-05] MEDS: GABAPENTIN 100 MG CAPSULE PO SCH (06:05)
[2017-11-05 09:09] VITALS: BP 136/75
[2017-11-05] MEDS: SUCRALFATE 1 GM/10 ML UDC PO SCH (09:18)
[2017-11-05] MEDS: TAMSULOSIN 0.4 MG CAP.ER.24H PO SCH (09:19)
[2017-11-05] MEDS: HYDROcodone/APAP 5/325 TABLET PO PRN (09:20)
[2017-11-05] MEDS: TEMPLATE NON-FORMULARY MED. (Cyclosporine (Restasis) 1 DROP) OP SCH (09:20)
[2017-11-05] MEDS: HYDROXYUREA 500 MG CAPSULE PO SCH (09:20)
[2017-11-05] MEDS: TACROLIMUS 1 MG CAPSULE PO SCH (09:20)
[2017-11-05] MEDS: AMLODIPINE 5 MG TABLET PO SCH (09:20)
== END 2017-11-05 13:51 | disposition home or self-care (01) | DRG 696 ==
LOC: 4WST 17:11
PROVIDERS: ADMIT Internal Medicine; ATTEND Hospitalist
DX: R33.8 Other retention of urine (principal); Z94.0 Kidney transplant status; I10 Essential (primary) hypertension; I25.10 Atherosclerotic heart disease of native coronary artery without angina pectoris; I73.9 Peripheral vascular disease, unspecified; N40.1 Benign prostatic hyperplasia with lower urinary tract symptoms; Z90.49 Acquired absence of other specified parts of digestive tract; Z98.61 Coronary angioplasty status
CPT/HCPCS: 36415; 80048; 83735; 84100; 85025; J7507; J7030; J7040; J7512; J7517

== ENCOUNTER 2017-11-07 15:19 | Emergency (ER) | payer MEDICARE ==
[~2017-11-07] VITALS: Ht 180.3 cm; Wt 85.0 kg
[2017-11-07] MEDS ORDERED: LIDOCAINE 2% VISCOUS 15 ML UDC MM PRN (16:30)
[2017-11-07 16:51] LABS: ALBUMIN 2.8 g/dL (3.4-5.0); ANION GAP 8 mmol/L (5-15); CALCIUM 9.4 mg/dL (8.5-10.1); CHLORIDE 106 mmol/L (98-107)
[2017-11-07 16:56] LABS: CREATININE 1.12 mg/dL (0.7-1.3); TROPONIN I < 0.015 ng/mL (0.000-0.045)
[2017-11-07 17:10] LABS: MD YES; MEAN CORPUSCULAR HEMOGLOBIN 32.4 pg (27.5-34.5); MEAN CORPUSCULAR HGB CONC 32.7 g/dL (33.2-36.2); MEAN CORPUSCULAR VOLUME 99.2 fL (81-97); MEAN PLATELET VOLUME 11.1 fL (7.4-10.4); PLATELET COUNT 397 x10^3/uL (130-400); RED BLOOD COUNT 4.39 x10^6/uL (4.38-5.82); RED CELL DISTRIBUTION WIDTH 16.5 % (9.4-14.8)
[2017-11-07 17:11] LABS: CULTURE INDICATED? NO; MICROSCOPIC NOT IND
[2017-11-07 18:17] LABS: BASOS#(MANUAL) 0.09 x10^3/uL (0-0.1); BASOS% (MANUAL) 1 % (0-1); EOS#(MANUAL) 0.18 x10^3/uL (0.0-0.4); EOS% (MANUAL) 2 % (1-7); LYMPH#(MANUAL) 1.46 x10^3/uL (1-3.4); LYMPHS% (MANUAL) 16 % (22-44); MONOS#(MANUAL) 1.46 x10^3/uL (0.3-2.7); MONOS% (MANUAL) 16 % (2-9); REACTIVE LYMPHS # (MANUAL) 0.18 x10^3/uL (0-0); REACTIVE LYMPHS % (MANUAL) 2 % (0-0); SEG#(MANUAL) 5.73 x10^3/uL (1.8-6.8); SEGS% (MANUAL) 63 % (42-75)
[2017-11-07 18:19] LABS: ANISOCYTOSIS 1+
[2017-11-07 18:21] LABS: POLYCHROMASIA 1+
[2017-11-07 18:22] LABS: <PLATELET ESTIMATE> ADEQUATE; LARGE PLATELETS 1+
[2017-11-07 19:40] VITALS: BP 149/95
== END 2017-11-07 19:42 | disposition home or self-care (01) ==
LOC: ED 15:26
DX: R06.00 Dyspnea, unspecified (principal); R33.9 Retention of urine, unspecified; N40.0 Benign prostatic hyperplasia without lower urinary tract symptoms; I10 Essential (primary) hypertension; I48.91 Unspecified atrial fibrillation
CPT/HCPCS: 36415; 51702; 71045; 80048; 81003; 82040; 83880; 84484; 85025; 93005; 99285

== ENCOUNTER 2017-11-17 20:21 | Inpatient (IN) | payer MEDICARE ==
[~2017-11-17] VITALS: Ht 180.3 cm; Wt 81.0 kg
[2017-11-17] MEDS ORDERED: SODIUM CHLORIDE 0.9% 1,000ML IVBOLUS ONE (21:00)
[2017-11-17 21:30] LABS: ALBUMIN 3.2 g/dL (3.4-5.0); ANION GAP 7 mmol/L (5-15); CALCIUM 9.8 mg/dL (8.5-10.1); CHLORIDE 102 mmol/L (98-107)
[2017-11-17 21:35] LABS: ALANINE AMINOTRANSFERASE 39 U/L (12-78); ALKALINE PHOSPHATASE 85 U/L (45-117); CREATININE 1.27 mg/dL (0.7-1.3); TOTAL PROTEIN 7.7 g/dL (6.4-8.2); TROPONIN I 0.024 ng/mL (0.000-0.045)
[2017-11-17 21:39] LABS: BILIRUBIN,TOTAL 1.3 mg/dL (0.2-1.0)
[2017-11-17 21:46] LABS: MEAN CORPUSCULAR HEMOGLOBIN 31.4 pg (27.5-34.5); MEAN CORPUSCULAR VOLUME 98.2 fL (81-97); MEAN PLATELET VOLUME 11.1 fL (7.4-10.4); PLATELET COUNT 393 x10^3/uL (130-400); RED BLOOD COUNT 4.99 x10^6/uL (4.38-5.82); RED CELL DISTRIBUTION WIDTH 17.1 % (9.4-14.8)
[2017-11-17 22:10] LABS: BASOPHILS # (AUTO) 0.16 x10^3/uL (0-0.1); BASOPHILS % (AUTO) 1 % (0-1); EOSINOPHILS # (AUTO) 0.08 x10^3/uL (0-0.4); EOSINOPHILS % (AUTO) 1 % (1-7); LYMPHOCYTES % (AUTO) 10 % (22-44); MD SCAN; MONOCYTES # (AUTO) 2.19 x10^3/uL (0.2-0.8); MONOCYTES % (AUTO) 14 % (2-9); NEUTROPHILS # (AUTO) 11.97 x10^3/uL (1.8-6.8); NEUTROPHILS % (AUTO) 75 % (42-75)
[2017-11-17 22:41] LABS: MICROSCOPIC AUTO
[2017-11-17 22:44] LABS: CULTURE INDICATED? YES
[2017-11-17] MEDS ORDERED: CEFTRIAXONE PMX 1GM/50ML 50 ML IV ONE (23:00)
[2017-11-17] MEDS ORDERED: SODIUM CHLORIDE 0.9% 1,000 ML IV ONE (23:10)
[2017-11-17] MEDS ORDERED: CEFTRIAXONE PMX 1GM/50ML 50 ML ONE (23:12)
[2017-11-17] MEDS ORDERED: ONDANSETRON 2MG/ML, 2ML IVPush PRN (23:30)
[2017-11-18 00:20] VITALS: BP 133/80
[2017-11-18] MEDS ORDERED: VENL75CA PO (00:51)
[2017-11-18] MEDS ORDERED: OMEP20TA62 PO (00:51)
[2017-11-18] MEDS ORDERED: ONDANSETRON 2MG/ML, 2ML IVPush PRN (01:30)
[2017-11-18] MEDS ORDERED: PROMETHAZINE 25 MG/ML, 1ML IM PRN (01:30)
[2017-11-18] MEDS ORDERED: POLYETHYLENE GLYCOL 17 GM PACKET PO PRN (01:30)
[2017-11-18] MEDS ORDERED: ONDANSETRON ODT 4 MG PO PRN (01:30)
[2017-11-18] MEDS ORDERED: DOCUSATE 100 MG CAPSULE PO PRN (01:30)
[2017-11-18] MEDS ORDERED: ACETAMINOPHEN 325 MG TABLET PO PRN (01:30)
[2017-11-18] MEDS ORDERED: morphine SULFATE 10 MG/ML, 1ML IVPush PRN (01:30)
[2017-11-18] MEDS ORDERED: BISACODYL 10 MG SUPP PR PRN (01:30)
[2017-11-18] MEDS ORDERED: CYCLOSPORINE OP PRN (01:30)
[2017-11-18] MEDS ORDERED: hydrALAzine 20 MG/ML, 1ML IVPush PRN (01:30)
[2017-11-18 01:56] LABS: FREE T4 (FREE THYROXINE) 1.1 ng/dL (0.76-1.46); THYROID STIMULATING HORMONE 0.901 mIU/L (0.358-3.740)
[2017-11-18 01:58] LABS: HEMOGLOBIN A1C 5.8 % (4.2-6.3)
[2017-11-18 02:00] VITALS: BP 143/74
[2017-11-18] MEDS: GABAPENTIN 100 MG CAPSULE PO SCH ×3 (02:21→16:31)
[2017-11-18] MEDS ORDERED: MAGNESIUM SULFATE PMX 2GM/50ML 50 ML IV ONE ×2 (02:30→13:30)
[2017-11-18] MEDS: PIPERACILLIN/TAZO/PMX 3.375GM 50 ML IV SCH ×4 (02:49→22:20)
[2017-11-18 05:48] LABS: MEAN CORPUSCULAR HGB CONC 32.2 g/dL (33.2-36.2); MEAN CORPUSCULAR VOLUME 99.1 fL (81-97); MEAN PLATELET VOLUME 11.1 fL (7.4-10.4); PLATELET COUNT 342 x10^3/uL (130-400); RED BLOOD COUNT 4.45 x10^6/uL (4.38-5.82); RED CELL DISTRIBUTION WIDTH 16.7 % (9.4-14.8)
[2017-11-18] MEDS: SODIUM CHLORIDE 0.9% 1,000 ML IV SCH ×2 (06:13→16:55)
[2017-11-18] MEDS: METOPROLOL TARTRATE 25 MG TABLET PO SCH ×2 (06:13→17:17)
[2017-11-18 06:30] LABS: BASOPHILS # (AUTO) 0.11 x10^3/uL (0-0.1); BASOPHILS % (AUTO) 1 % (0-1); EOSINOPHILS # (AUTO) 0.07 x10^3/uL (0-0.4); EOSINOPHILS % (AUTO) 1 % (1-7); LYMPHOCYTES # (AUTO) 2.21 x10^3/uL (1-3.4); LYMPHOCYTES % (AUTO) 15 % (22-44); MD SCAN; MONOCYTES # (AUTO) 2.25 x10^3/uL (0.2-0.8); MONOCYTES % (AUTO) 15 % (2-9); NEUTROPHILS # (AUTO) 10.52 x10^3/uL (1.8-6.8); NEUTROPHILS % (AUTO) 69 % (42-75)
[2017-11-18 07:54] VITALS: BP 134/92
[2017-11-18] MEDS: OMEPRAZOLE 20 MG CAPSULE.DR PO SCH (08:36)
[2017-11-18] MEDS: SUCRALFATE 1 GM TABLET PO SCH ×4 (08:36→21:07)
[2017-11-18] MEDS: AMLODIPINE 5 MG TABLET PO SCH (08:36)
[2017-11-18] MEDS: VENLAFAXINE 75 MG CAP ER PO SCH (08:37)
[2017-11-18] MEDS: TACROLIMUS 1 MG CAPSULE PO SCH ×2 (08:37→21:07)
[2017-11-18] MEDS: MULTIVITS,STRESS FORMULA 1 TABLET PO SCH (08:37)
[2017-11-18] MEDS: ALFUZOSIN HCL PO SCH (08:57)
[2017-11-18 11:54] LABS: CLOSTRIDIUM DIFFICILE ANTIGEN NEGATIVE; CLOSTRIDIUM DIFFICILE TOXIN NEGATIVE (Negative)
[2017-11-18 14:24] VITALS: BP 160/80
[2017-11-18 19:55] VITALS: BP 153/80
[2017-11-18] MEDS ORDERED: HYDROXYUREA 500 MG CAPSULE PO SCH (21:00)
[2017-11-18] MEDS: CARBIDOPA/LEVODOPA 25 MG/100 MG TABLET PO SCH (21:08)
[2017-11-19] MEDS: GABAPENTIN 100 MG CAPSULE PO SCH ×3 (00:52→18:05)
[2017-11-19 01:50] VITALS: BP 153/91
[2017-11-19] MEDS: OXYcodone IR 5MG TABLET PO PRN ×2 (03:18→15:31)
[2017-11-19] MEDS: PIPERACILLIN/TAZO/PMX 3.375GM 50 ML IV SCH ×4 (04:22→22:53)
[2017-11-19 05:25] LABS: MEAN CORPUSCULAR HGB CONC 32.3 g/dL (33.2-36.2); MEAN CORPUSCULAR VOLUME 98.9 fL (81-97); MEAN PLATELET VOLUME 11.1 fL (7.4-10.4); PLATELET COUNT 343 x10^3/uL (130-400); RED BLOOD COUNT 4.29 x10^6/uL (4.38-5.82); RED CELL DISTRIBUTION WIDTH 16.5 % (9.4-14.8)
[2017-11-19 05:32] LABS: CHLORIDE 106 mmol/L (98-107)
[2017-11-19 05:42] LABS: ALANINE AMINOTRANSFERASE 23 U/L (12-78); ALBUMIN 2.8 g/dL (3.4-5.0); ALKALINE PHOSPHATASE 75 U/L (45-117); ANION GAP 7 mmol/L (5-15); CALCIUM 9.7 mg/dL (8.5-10.1); CHOL/HDL RATIO 4.8; CHOLESTEROL, TOTAL 164 mg/dL (140-239); CREATININE 0.81 mg/dL (0.7-1.3); HDL CHOL % 21 % (26-37); HDL CHOLESTEROL (DIRECT) 34 mg/dL (40-60); LDL CHOLESTEROL,CALCULATED 108 mg/dL (54-169); LDL/HDL RATIO 3.2 (0.5-3.0); TRIGLYCERIDES 110 mg/dL (50-200); VLDL CHOLESTEROL 22 mg/dL (0-25)
[2017-11-19 05:50] LABS: ANISOCYTOSIS 1+; BASOPHILS % (AUTO) 2 % (0-1); EOSINOPHILS # (AUTO) 0.08 x10^3/uL (0-0.4); EOSINOPHILS % (AUTO) 1 % (1-7); LYMPHOCYTES # (AUTO) 1.39 x10^3/uL (1-3.4); LYMPHOCYTES % (AUTO) 11 % (22-44); MD MORPH REVIEW ONLY; MONOCYTES # (AUTO) 1.49 x10^3/uL (0.2-0.8); MONOCYTES % (AUTO) 11 % (2-9); NEUTROPHILS % (AUTO) 76 % (42-75); TARGET CELLS 1+
[2017-11-19 05:51] LABS: <PLATELET ESTIMATE> ADEQUATE; LARGE PLATELETS 2+
[2017-11-19] MEDS: METOPROLOL TARTRATE 25 MG TABLET PO SCH ×2 (05:51→18:04)
[2017-11-19 07:48] VITALS: BP 165/97
[2017-11-19] MEDS: ALFUZOSIN HCL PO SCH (08:11)
[2017-11-19] MEDS: SUCRALFATE 1 GM TABLET PO SCH ×4 (08:11→21:42)
[2017-11-19] MEDS: OMEPRAZOLE 20 MG CAPSULE.DR PO SCH (08:11)
[2017-11-19] MEDS: TACROLIMUS 1 MG CAPSULE PO SCH ×2 (09:18→21:42)
[2017-11-19] MEDS: VENLAFAXINE 75 MG CAP ER PO SCH (09:18)
[2017-11-19] MEDS: AMLODIPINE 5 MG TABLET PO SCH (09:18)
[2017-11-19] MEDS: MULTIVITS,STRESS FORMULA 1 TABLET PO SCH (09:18)
[2017-11-19 14:34] VITALS: BP 136/73
[2017-11-19 17:50] VITALS: BP 147/73
[2017-11-19 19:25] VITALS: BP 162/86
[2017-11-19] MEDS: TAMSULOSIN 0.4 MG CAP.ER.24H PO SCH (21:42)
[2017-11-19] MEDS: CARBIDOPA/LEVODOPA 25 MG/100 MG TABLET PO SCH (21:42)
[2017-11-19] MEDS ORDERED: ARTIFICIAL TEARS 15 DROP/ML BOTTLE EACHEYE PRN (22:30)
[2017-11-19] MEDS ORDERED: LIDOCAINE GEL 2%, 5ML TP ONE (22:30)
[2017-11-20] MEDS: GABAPENTIN 100 MG CAPSULE PO SCH ×3 (00:36→17:38)
[2017-11-20 02:59] VITALS: BP 163/93
[2017-11-20] MEDS: PIPERACILLIN/TAZO/PMX 3.375GM 50 ML IV SCH ×2 (04:45→10:51)
[2017-11-20] MEDS: METOPROLOL TARTRATE 25 MG TABLET PO SCH ×2 (05:40→17:38)
[2017-11-20 07:54] VITALS: BP 154/93
[2017-11-20] MEDS: SUCRALFATE 1 GM TABLET PO SCH ×4 (08:17→20:31)
[2017-11-20] MEDS: VENLAFAXINE 75 MG CAP ER PO SCH (08:18)
[2017-11-20] MEDS: OMEPRAZOLE 20 MG CAPSULE.DR PO SCH (08:18)
[2017-11-20] MEDS: MULTIVITS,STRESS FORMULA 1 TABLET PO SCH (08:19)
[2017-11-20] MEDS: TACROLIMUS 1 MG CAPSULE PO SCH ×2 (08:19→20:32)
[2017-11-20] MEDS: AMLODIPINE 5 MG TABLET PO SCH (08:19)
[2017-11-20] MEDS: ALFUZOSIN HCL PO SCH (08:20)
[2017-11-20 08:34] LABS: MEAN CORPUSCULAR HEMOGLOBIN 31.6 pg (27.5-34.5); MEAN CORPUSCULAR VOLUME 98.5 fL (81-97); MEAN PLATELET VOLUME 11.5 fL (7.4-10.4); PLATELET COUNT 388 x10^3/uL (130-400); RED BLOOD COUNT 4.68 x10^6/uL (4.38-5.82); RED CELL DISTRIBUTION WIDTH 17.1 % (9.4-14.8)
[2017-11-20 08:56] LABS: BASOPHILS # (AUTO) 0.17 x10^3/uL (0-0.1); BASOPHILS % (AUTO) 2 % (0-1); EOSINOPHILS % (AUTO) 1 % (1-7); LYMPHOCYTES % (AUTO) 15 % (22-44); MD SCAN; MONOCYTES % (AUTO) 10 % (2-9); NEUTROPHILS # (AUTO) 6.79 x10^3/uL (1.8-6.8); NEUTROPHILS % (AUTO) 73 % (42-75)
[2017-11-20 08:58] LABS: ALBUMIN 3.1 g/dL (3.4-5.0); ANION GAP 9 mmol/L (5-15); CALCIUM 9.7 mg/dL (8.5-10.1); CHLORIDE 105 mmol/L (98-107); CREATININE 0.84 mg/dL (0.7-1.3)
[2017-11-20] MEDS: IRON SUCROSE COMPLEX 100MG/5ML IV SCH (10:51)
[2017-11-20 13:50] VITALS: BP 147/84
[2017-11-20] MEDS: CARBIDOPA/LEVODOPA 25 MG/100 MG TABLET PO SCH (20:31)
[2017-11-20] MEDS: CEFDINIR 300 MG CAPSULE PO SCH (20:31)
[2017-11-20] MEDS: TAMSULOSIN 0.4 MG CAP.ER.24H PO SCH (20:31)
[2017-11-20 20:36] VITALS: BP 156/87
[2017-11-21 01:59] VITALS: BP 140/91
[2017-11-21] MEDS: GABAPENTIN 100 MG CAPSULE PO SCH ×2 (02:01→08:31)
[2017-11-21 05:11] LABS: ALBUMIN 2.8 g/dL (3.4-5.0); ANION GAP 6 mmol/L (5-15); CALCIUM 9.4 mg/dL (8.5-10.1); CHLORIDE 106 mmol/L (98-107)
[2017-11-21 05:16] LABS: CREATININE 0.88 mg/dL (0.7-1.3)
[2017-11-21 05:17] LABS: PSA SCREEN 2.36 ng/mL (0.00-4.00)
[2017-11-21 05:20] LABS: MEAN CORPUSCULAR HGB CONC 32.1 g/dL (33.2-36.2); MEAN CORPUSCULAR VOLUME 99.7 fL (81-97); MEAN PLATELET VOLUME 11.6 fL (7.4-10.4); PLATELET COUNT 355 x10^3/uL (130-400); RED BLOOD COUNT 4.53 x10^6/uL (4.38-5.82); RED CELL DISTRIBUTION WIDTH 16.3 % (9.4-14.8)
[2017-11-21 05:39] LABS: MD YES
[2017-11-21 05:41] LABS: BAND#(MANUAL) 0.36 x10^3/uL; BANDS%(MANUAL) 4 % (0-7); BASOS#(MANUAL) 0.18 x10^3/uL (0-0.1); BASOS% (MANUAL) 2 % (0-1); EOS#(MANUAL) 0.09 x10^3/uL (0.0-0.4); EOS% (MANUAL) 1 % (1-7); LYMPH#(MANUAL) 1.91 x10^3/uL (1-3.4); LYMPHS% (MANUAL) 21 % (22-44); MONOS#(MANUAL) 0.82 x10^3/uL (0.3-2.7); MONOS% (MANUAL) 9 % (2-9); SEG#(MANUAL) 5.73 x10^3/uL (1.8-6.8); SEGS% (MANUAL) 63 % (42-75)
[2017-11-21 05:42] LABS: <PLATELET ESTIMATE> ADEQUATE; ANISOCYTOSIS 1+; LARGE PLATELETS 2+
[2017-11-21] MEDS: METOPROLOL TARTRATE 25 MG TABLET PO SCH (06:11)
[2017-11-21 08:04] VITALS: BP 136/90
[2017-11-21] MEDS: CEFDINIR 300 MG CAPSULE PO SCH (08:25)
[2017-11-21] MEDS: IRON SUCROSE COMPLEX 100MG/5ML IV SCH (08:25)
[2017-11-21] MEDS: OMEPRAZOLE 20 MG CAPSULE.DR PO SCH (08:26)
[2017-11-21] MEDS: SUCRALFATE 1 GM TABLET PO SCH ×2 (08:26→12:18)
[2017-11-21] MEDS: MULTIVITS,STRESS FORMULA 1 TABLET PO SCH (08:26)
[2017-11-21] MEDS: AMLODIPINE 5 MG TABLET PO SCH (08:26)
[2017-11-21] MEDS: TACROLIMUS 1 MG CAPSULE PO SCH (08:26)
[2017-11-21] MEDS: VENLAFAXINE 75 MG CAP ER PO SCH (08:26)
[2017-11-21] MEDS: ALFUZOSIN HCL PO SCH (08:31)
[2017-11-21] MEDS: OXYcodone IR 5MG TABLET PO PRN (09:06)
[2017-11-21 14:27] VITALS: BP 127/71
[2017-11-21] MEDS ORDERED: TACR1CAP4 PO (15:20)
[2017-11-21] MEDS ORDERED: CYCLOSPORINE OP (15:20)
[2017-11-21] MEDS ORDERED: SUCR1TAB33 PO (15:20)
[2017-11-21] MEDS ORDERED: MYCO500T3 PO (15:20)
[2017-11-21] MEDS ORDERED: DOCU-131 PO (15:20)
[2017-11-21] MEDS ORDERED: TAMS-11 PO (15:20)
[2017-11-21] MEDS ORDERED: ACET325T14 PO (15:20)
[2017-11-21] MEDS ORDERED: CEFD300C37 PO (15:20)
[2017-11-21] MEDS ORDERED: ALFUZOSIN HCL PO (15:20)
[2017-11-21] MEDS ORDERED: PEG15DRO4 EACHEYE (15:20)
[2017-11-21] MEDS ORDERED: CARB1TAB22 PO (15:20)
[2017-11-21] MEDS ORDERED: OMEP-110 PO (15:20)
[2017-11-21] MEDS ORDERED: ONDA4TAB13 PO (15:20)
[2017-11-21] MEDS ORDERED: GABA-826 PO (15:20)
[2017-11-21] MEDS ORDERED: METO25TA35 PO (15:20)
[2017-11-21] MEDS ORDERED: BISA10SU65 PR (15:20)
[2017-11-21] MEDS ORDERED: MULT1TAB76 PO (15:20)
[2017-11-21] MEDS ORDERED: POLY17PO5 PO (15:20)
[2017-11-21] MEDS ORDERED: VENL75CA6 PO (15:20)
[2017-11-21] MEDS ORDERED: AMLO5TAB2 PO (15:20)
== END 2017-11-21 15:45 | DRG 871 ==
LOC: ED 21:29 → EDIP 23:10 → 4WST 11-18 00:21
PROVIDERS: ADMIT Internal Medicine; ATTEND Internal Medicine
PROC: 0T9B70Z Drainage of Bladder with Drainage Device, Via Natural or Artificial Opening (ICD-10-PCS; principal; 2017-11-17)
DX: A41.89 Other specified sepsis (principal); G93.41 Metabolic encephalopathy; E43 Unspecified severe protein-calorie malnutrition; D75.81 Myelofibrosis; K50.90 Crohn's disease, unspecified, without complications; D68.59 Other primary thrombophilia; C94.6 Myelodysplastic disease, not elsewhere classified; Z94.0 Kidney transplant status; K57.30 Diverticulosis of large intestine without perforation or abscess without bleeding; E78.5 Hyperlipidemia, unspecified; E55.9 Vitamin D deficiency, unspecified; K57.90 Diverticulosis of intestine, part unspecified, without perforation or abscess without bleeding; R33.8 Other retention of urine; D64.9 Anemia, unspecified; E61.1 Iron deficiency; N18.9 Chronic kidney disease, unspecified; I12.9 Hypertensive chronic kidney disease with stage 1 through stage 4 chronic kidney disease, or unspecified chronic kidney disease; N40.1 Benign prostatic hyperplasia with lower urinary tract symptoms; I48.91 Unspecified atrial fibrillation; I73.9 Peripheral vascular disease, unspecified; K21.9 Gastro-esophageal reflux disease without esophagitis; M10.9 Gout, unspecified; M48.02 Spinal stenosis, cervical region; N30.91 Cystitis, unspecified with hematuria; Z79.01 Long term (current) use of anticoagulants; Z68.24 Body mass index [BMI] 24.0-24.9, adult; Z79.2 Long term (current) use of antibiotics; Z79.899 Other long term (current) drug therapy; Z82.49 Family history of ischemic heart disease and other diseases of the circulatory system; Z85.828 Personal history of other malignant neoplasm of skin; Z86.718 Personal history of other venous thrombosis and embolism; Z87.440 Personal history of urinary (tract) infections; Z90.49 Acquired absence of other specified parts of digestive tract
CPT/HCPCS: 36415; 70450; 71045; 74176; 76776; 80053; 80061; 80069; 80197; 81001; 82728; 82784; 83036; 83540; 83550; 83605; 83690; 83735; 84100; 84145; 84439; 84443; 84484; 84550; 85025; 86356; 86359; 86360; 87040; 87077; 87086; 87186; 87324; 93005; G0103; J0696; J1756; J2543; J7507; J3475; J7030; J7512; J7517

== ENCOUNTER 2017-12-04 10:56 | Inpatient (IN) | payer MEDICARE ==
[~2017-12-04] VITALS: Ht 180.3 cm; Wt 75.1 kg
[~2017-12-04 10:56] MED LIST changes: +ACET325T14 PO; +ALFUZOSIN HCL PO; +BISA10SU65 PR; +CARB1TAB22 PO; +CYCLOSPORINE OP; +DOCU-131 PO; +GABA-826 PO; +MULT1TAB76 PO; +OMEP20TA62 PO; +ONDA4TAB13 PO; +PEG15DRO4 EACHEYE; +POLY17PO5 PO; +SUCR1TAB33 PO; +VENL75CA PO; +VENL75CA6 PO
[2017-12-04] MEDS ORDERED: VERAPAMIL 2.5 MG/ML, 2ML ONE (11:13)
[2017-12-04] MEDS ORDERED: SODIUM CHLORIDE 0.9% 1,000ML IVBOLUS ONE ×2 (11:30→12:00)
[2017-12-04] MEDS ORDERED: VERAPAMIL 2.5 MG/ML, 2ML IVPush ONE (11:30)
[2017-12-04 11:38] LABS: ALANINE AMINOTRANSFERASE 21 U/L (12-78); ANION GAP 13 mmol/L (5-15); CALCIUM 9.4 mg/dL (8.5-10.1); CHLORIDE 101 mmol/L (98-107); CREATININE 1.55 mg/dL (0.7-1.3); MEAN CORPUSCULAR HEMOGLOBIN 32.6 pg (27.5-34.5); MEAN CORPUSCULAR HGB CONC 32.7 g/dL (33.2-36.2); MEAN CORPUSCULAR VOLUME 99.5 fL (81-97); MEAN PLATELET VOLUME 11.1 fL (7.4-10.4); PLATELET COUNT 337 x10^3/uL (130-400); RED BLOOD COUNT 4.76 x10^6/uL (4.38-5.82); RED CELL DISTRIBUTION WIDTH 17.1 % (9.4-14.8); T4 (THYROXINE) 8.7 mcg/dL (4.5-12.1)
[2017-12-04 11:42] LABS: ALKALINE PHOSPHATASE 70 U/L (45-117); BILIRUBIN,TOTAL 4.4 mg/dL (0.2-1.0); TOTAL PROTEIN 7.3 g/dL (6.4-8.2); TROPONIN I 0.029 ng/mL (0.000-0.045)
[2017-12-04] MEDS ORDERED: PIPERACILLIN/TAZO/PMX 3.375GM 50 ML ONE (11:47)
[2017-12-04 11:52] LABS: INTERNATIONAL NORMALIZED RATIO 1.07 (0.93-1.1); PROTHROMBIN TIME 11.1 Seconds (9.6-11.5)
[2017-12-04 12:15] LABS: MD YES
[2017-12-04 12:16] LABS: <PLATELET ESTIMATE> ADEQUATE; <PLT MORPHOLOGY> NORMAL PLT MORPH; ANISOCYTOSIS 1+; LYMPH#(MANUAL) 1.33 x10^3/uL (1-3.4); LYMPHS% (MANUAL) 6 % (22-44); SEG#(MANUAL) 20.87 x10^3/uL (1.8-6.8); SEGS% (MANUAL) 94 % (42-75)
[2017-12-04] MEDS ORDERED: PIPERACILLIN/TAZO/PMX 3.375GM 50 ML IVPB ONE (12:30)
[2017-12-04] MEDS ORDERED: VERAPAMIL 50 MG in SODIUM CHLORIDE 0.9% 80 ML IV PRN (12:30)
[2017-12-04] MEDS ORDERED: VANCOMYCIN PER PHARMACY MC ONE (13:00)
[2017-12-04] MEDS ORDERED: VANCOMYCIN 1,400 MG in SODIUM CHLORIDE 0.9% 250 ML IV ONE (13:00)
[2017-12-04 13:20] LABS: MICROSCOPIC INDICATED
[2017-12-04 13:32] LABS: CULTURE INDICATED? YES
[2017-12-04] MEDS ORDERED: DIGOXIN 0.25 MG/ML, 2ML IVPush ONE (14:00)
[2017-12-04] MEDS ORDERED: VERAPAMIL 50 MG in SODIUM CHLORIDE 0.9% 80 ML IV SCH (14:30)
[2017-12-04] MEDS ORDERED: DOCUSATE 100 MG CAPSULE PO PRN (14:30)
[2017-12-04] MEDS: VERAPAMIL 50 MG in SODIUM CHLORIDE 0.9% 80 ML IV SCH (15:00)
[2017-12-04] MEDS ORDERED: PHARMACY MAY ADJ FOR RENAL FX MC PRN (15:00)
[2017-12-04] MEDS ORDERED: MAGNESIUM SULFATE PMX 4GM/100M 100 ML IVPB ONE (15:30)
[2017-12-04 15:50] VITALS: BP 159/66
[2017-12-04] MEDS: SODIUM CHLORIDE 0.9% 1,000 ML IV SCH (16:28)
[2017-12-04] MEDS: CEFTRIAXONE 1,000 MG in SODIUM CHLORIDE 0.9% 50 ML IV SCH (16:28)
[2017-12-04] MEDS: GABAPENTIN 100 MG CAPSULE PO SCH (16:40)
[2017-12-04] MEDS ORDERED: RIVAROXABAN 20 MG TABLET PO SCH (17:00)
[2017-12-04] MEDS ORDERED: RIVAROXABAN 10 MG TABLET ONE ×3 (18:10→18:12)
[2017-12-04] MEDS: RIVAROXABAN 15 MG TABLET PO SCH (18:24)
[2017-12-04 19:38] LABS: CLOSTRIDIUM DIFFICILE ANTIGEN NEGATIVE; CLOSTRIDIUM DIFFICILE TOXIN NEGATIVE (Negative)
[2017-12-04 19:49] VITALS: BP 133/80
[2017-12-04] MEDS: HYDROXYUREA 500 MG CAPSULE PO SCH (21:00)
[2017-12-04] MEDS: METOPROLOL TARTRATE 25 MG TABLET PO SCH (21:23)
[2017-12-04] MEDS: TAMSULOSIN 0.4 MG CAP.ER.24H PO SCH (21:23)
[2017-12-04] MEDS: TACROLIMUS 1 MG CAPSULE PO SCH (21:23)
[2017-12-04] MEDS: ATORVASTATIN 20 MG TABLET PO SCH (21:23)
[2017-12-04] MEDS: CARBIDOPA/LEVODOPA 25 MG/100 MG TABLET PO SCH (21:23)
[2017-12-05] MEDS: GABAPENTIN 100 MG CAPSULE PO SCH ×4 (00:14→23:06)
[2017-12-05 00:25] VITALS: BP 144/82
[2017-12-05 01:18] LABS: ALBUMIN 2.6 g/dL (3.4-5.0); ANION GAP 7 mmol/L (5-15); CALCIUM 8.8 mg/dL (8.5-10.1); CHLORIDE 109 mmol/L (98-107)
[2017-12-05 01:22] LABS: ALANINE AMINOTRANSFERASE 7 U/L (12-78); ALKALINE PHOSPHATASE 60 U/L (45-117); BILIRUBIN,TOTAL 3.4 mg/dL (0.2-1.0); CREATININE 1.12 mg/dL (0.7-1.3); TOTAL PROTEIN 6.8 g/dL (6.4-8.2)
[2017-12-05 01:24] LABS: TROPONIN I 0.028 ng/mL (0.000-0.045)
[2017-12-05 01:37] LABS: MEAN CORPUSCULAR HEMOGLOBIN 32.3 pg (27.5-34.5); MEAN CORPUSCULAR HGB CONC 32.4 g/dL (33.2-36.2); MEAN CORPUSCULAR VOLUME 99.7 fL (81-97); MEAN PLATELET VOLUME 10.5 fL (7.4-10.4); PLATELET COUNT 304 x10^3/uL (130-400); RED BLOOD COUNT 4.34 x10^6/uL (4.38-5.82)
[2017-12-05 01:38] LABS: BASOPHILS # (AUTO) 0.01 x10^3/uL (0-0.1); BASOPHILS % (AUTO) 0 % (0-1); EOSINOPHILS # (AUTO) 0.01 x10^3/uL (0-0.4); EOSINOPHILS % (AUTO) 0 % (1-7); LYMPHOCYTES % (AUTO) 6 % (22-44); MD SCAN; MONOCYTES # (AUTO) 1.91 x10^3/uL (0.2-0.8); MONOCYTES % (AUTO) 10 % (2-9); NEUTROPHILS # (AUTO) 16.96 x10^3/uL (1.8-6.8); NEUTROPHILS % (AUTO) 85 % (42-75)
[2017-12-05] MEDS: VERAPAMIL 50 MG in SODIUM CHLORIDE 0.9% 80 ML IV SCH ×2 (02:04→11:03)
[2017-12-05] MEDS: SODIUM CHLORIDE 0.9% 1,000 ML IV SCH ×2 (05:32→14:34)
[2017-12-05] MEDS: METOPROLOL TARTRATE 25 MG TABLET PO SCH ×2 (05:33→16:44)
[2017-12-05] MEDS: ASPIRIN 81 MG TABLET EC PO SCH (05:34)
[2017-12-05] MEDS: ACETAMINOPHEN 325 MG TABLET PO PRN (05:37)
[2017-12-05 07:32] VITALS: BP 126/79
[2017-12-05] MEDS: OMEPRAZOLE 20 MG CAPSULE.DR PO SCH (08:34)
[2017-12-05] MEDS: TACROLIMUS 1 MG CAPSULE PO SCH ×2 (08:34→20:53)
[2017-12-05] MEDS: ALFUZOSIN HCL 10 MG HOMEMEDPO SCH (08:34)
[2017-12-05] MEDS: VENLAFAXINE XR 37.5MG CAP.ER.24H PO SCH (08:34)
[2017-12-05] MEDS: TEMPLATE NON-FORMULARY MED. (Amlodipine Besylate** 5 MG) PO SCH (08:35)
[2017-12-05 12:08] VITALS: BP 121/78
[2017-12-05] MEDS: CEFTRIAXONE 1,000 MG in SODIUM CHLORIDE 0.9% 50 ML IV SCH (15:21)
[2017-12-05] MEDS: HYDROcodone/APAP 5/325 TABLET PO PRN ×2 (15:21→20:52)
[2017-12-05] MEDS: RIVAROXABAN 15 MG TABLET PO SCH (16:44)
[2017-12-05 20:18] VITALS: BP 135/84
[2017-12-05] MEDS: ATORVASTATIN 20 MG TABLET PO SCH (20:53)
[2017-12-05] MEDS: TAMSULOSIN 0.4 MG CAP.ER.24H PO SCH (20:53)
[2017-12-05] MEDS: HYDROXYUREA 500 MG CAPSULE PO SCH (20:53)
[2017-12-05] MEDS: CARBIDOPA/LEVODOPA 25 MG/100 MG TABLET PO SCH (20:53)
[2017-12-06 02:00] VITALS: BP 156/90
[2017-12-06] MEDS: ACETAMINOPHEN 325 MG TABLET PO PRN ×2 (02:22→20:55)
[2017-12-06] MEDS: SODIUM CHLORIDE 0.9% 1,000 ML IV SCH (03:53)
[2017-12-06] MEDS: ASPIRIN 81 MG TABLET EC PO SCH (05:03)
[2017-12-06] MEDS: HYDROcodone/APAP 5/325 TABLET PO PRN ×3 (05:03→21:57)
[2017-12-06] MEDS: METOPROLOL TARTRATE 25 MG TABLET PO SCH ×2 (05:03→17:25)
[2017-12-06 07:21] LABS: ALANINE AMINOTRANSFERASE 14 U/L (12-78); ALBUMIN 2.4 g/dL (3.4-5.0); ANION GAP 9 mmol/L (5-15); CALCIUM 9.3 mg/dL (8.5-10.1); CHLORIDE 112 mmol/L (98-107)
[2017-12-06 07:24] LABS: ALKALINE PHOSPHATASE 56 U/L (45-117); BILIRUBIN,TOTAL 0.9 mg/dL (0.2-1.0); CHOL/HDL RATIO 5.8; CHOLESTEROL, TOTAL 163 mg/dL (140-239); HDL CHOL % 17 % (26-37); HDL CHOLESTEROL (DIRECT) 28 mg/dL (40-60); LDL CHOLESTEROL,CALCULATED 107 mg/dL (54-169); LDL/HDL RATIO 3.8 (0.5-3.0); TOTAL PROTEIN 6.1 g/dL (6.4-8.2); TRIGLYCERIDES 139 mg/dL (50-200); VLDL CHOLESTEROL 28 mg/dL (0-25)
[2017-12-06 07:30] VITALS: BP 152/94
[2017-12-06] MEDS: GABAPENTIN 100 MG CAPSULE PO SCH ×3 (07:30→21:07)
[2017-12-06 08:07] LABS: MEAN CORPUSCULAR HEMOGLOBIN 32.5 pg (27.5-34.5); MEAN CORPUSCULAR VOLUME 101.4 fL (81-97); MEAN PLATELET VOLUME 11.8 fL (7.4-10.4); PLATELET COUNT 276 x10^3/uL (130-400); RED BLOOD COUNT 3.89 x10^6/uL (4.38-5.82); RED CELL DISTRIBUTION WIDTH 17.4 % (9.4-14.8)
[2017-12-06] MEDS: TACROLIMUS 1 MG CAPSULE PO SCH ×2 (08:22→20:57)
[2017-12-06] MEDS: OMEPRAZOLE 20 MG CAPSULE.DR PO SCH (08:22)
[2017-12-06] MEDS: VENLAFAXINE XR 37.5MG CAP.ER.24H PO SCH (08:22)
[2017-12-06] MEDS: TEMPLATE NON-FORMULARY MED. (Amlodipine Besylate** 5 MG) PO SCH (08:23)
[2017-12-06] MEDS: ALFUZOSIN HCL 10 MG HOMEMEDPO SCH (08:23)
[2017-12-06 08:47] LABS: MD YES
[2017-12-06 08:49] LABS: BASOS#(MANUAL) 0.12 x10^3/uL (0-0.1); BASOS% (MANUAL) 1 % (0-1)
[2017-12-06 08:50] LABS: LYMPH#(MANUAL) 0.94 x10^3/uL (1-3.4); LYMPHS% (MANUAL) 8 % (22-44); MONOS#(MANUAL) 1.17 x10^3/uL (0.3-2.7); MONOS% (MANUAL) 10 % (2-9); SEG#(MANUAL) 9.48 x10^3/uL (1.8-6.8); SEGS% (MANUAL) 81 % (42-75)
[2017-12-06 08:51] LABS: ANISOCYTOSIS 1+; POLYCHROMASIA 1+
[2017-12-06 08:52] LABS: <PLATELET ESTIMATE> ADEQUATE; LARGE PLATELETS 2+
[2017-12-06] MEDS ORDERED: MAGNESIUM SULFATE PMX 2GM/50ML 50 ML IV ONE (09:00)
[2017-12-06] MEDS ORDERED: POTASSIUM CHLORIDE 20 MEQ TAB.ER.PRT PO ONE (09:00)
[2017-12-06] MEDS ORDERED: POTASSIUM PHOSPHATE 44 MEQ in SODIUM CHLORIDE 0.9% 500 ML IV ONE (09:00)
[2017-12-06 13:45] VITALS: BP 152/97
[2017-12-06] MEDS: CEFTRIAXONE 1,000 MG in SODIUM CHLORIDE 0.9% 50 ML IV SCH (16:09)
[2017-12-06] MEDS: RIVAROXABAN 15 MG TABLET PO SCH (17:26)
[2017-12-06 19:05] VITALS: BP 169/91
[2017-12-06] MEDS: ATORVASTATIN 20 MG TABLET PO SCH (20:55)
[2017-12-06] MEDS: HYDROXYUREA 500 MG CAPSULE PO SCH (20:55)
[2017-12-06] MEDS: TAMSULOSIN 0.4 MG CAP.ER.24H PO SCH (20:56)
[2017-12-06] MEDS: CARBIDOPA/LEVODOPA 25 MG/100 MG TABLET PO SCH (21:07)
[2017-12-07 00:58] VITALS: BP 161/80
[2017-12-07 05:53] VITALS: BP 176/105
[2017-12-07] MEDS: GABAPENTIN 100 MG CAPSULE PO SCH ×3 (05:54→23:12)
[2017-12-07] MEDS: METOPROLOL TARTRATE 25 MG TABLET PO SCH ×2 (05:55→17:57)
[2017-12-07] MEDS: ASPIRIN 81 MG TABLET EC PO SCH (05:55)
[2017-12-07] MEDS: ACETAMINOPHEN 325 MG TABLET PO PRN (06:01)
[2017-12-07 06:40] VITALS: BP 177/99
[2017-12-07 06:54] LABS: ALBUMIN 3.2 g/dL (3.4-5.0); ANION GAP 8 mmol/L (5-15); CALCIUM 10.1 mg/dL (8.5-10.1); CHLORIDE 103 mmol/L (98-107)
[2017-12-07 07:23] VITALS: BP 176/85
[2017-12-07] MEDS: HYDROcodone/APAP 5/325 TABLET PO PRN ×2 (08:21→19:46)
[2017-12-07] MEDS: OMEPRAZOLE 20 MG CAPSULE.DR PO SCH (08:21)
[2017-12-07] MEDS: ALFUZOSIN HCL 10 MG HOMEMEDPO SCH (09:00)
[2017-12-07] MEDS ORDERED: MAGNESIUM SULFATE PMX 2GM/50ML 50 ML IV ONE (09:00)
[2017-12-07] MEDS: MAGNESIUM OXIDE 400 MG TABLET PO SCH ×2 (09:36→19:45)
[2017-12-07] MEDS: AMLODIPINE 5 MG TABLET PO SCH (09:37)
[2017-12-07] MEDS: VENLAFAXINE XR 37.5MG CAP.ER.24H PO SCH (09:39)
[2017-12-07] MEDS: TACROLIMUS 1 MG CAPSULE PO SCH ×2 (09:40→19:45)
[2017-12-07] MEDS: SULFAMETH./TRIMETHOPRIM DS 800MG/160MG TABLET PO SCH ×2 (09:40→19:45)
[2017-12-07] MEDS: HYDROXYUREA 500 MG CAPSULE PO SCH (09:47)
[2017-12-07 14:15] VITALS: BP 163/97
[2017-12-07] MEDS: RIVAROXABAN 15 MG TABLET PO SCH (17:57)
[2017-12-07 19:10] VITALS: BP 140/98
[2017-12-07] MEDS: ATORVASTATIN 20 MG TABLET PO SCH (19:45)
[2017-12-07] MEDS: CARBIDOPA/LEVODOPA 25 MG/100 MG TABLET PO SCH (19:45)
[2017-12-07] MEDS: TAMSULOSIN 0.4 MG CAP.ER.24H PO SCH (19:49)
[2017-12-08] VITALS (10 sets, daily range): BP systolic 93–155; BP diastolic 62–93
[2017-12-08] MEDS: HYDROcodone/APAP 5/325 TABLET PO PRN (01:00)
[2017-12-08] MEDS: GABAPENTIN 100 MG CAPSULE PO SCH ×3 (05:46→22:46)
[2017-12-08] MEDS: ASPIRIN 81 MG TABLET EC PO SCH (05:46)
[2017-12-08] MEDS: METOPROLOL TARTRATE 25 MG TABLET PO SCH ×2 (05:48→18:00)
[2017-12-08] MEDS: ALFUZOSIN HCL 10 MG HOMEMEDPO SCH (09:00)
[2017-12-08] MEDS: MAGNESIUM OXIDE 400 MG TABLET PO SCH ×2 (09:15→20:13)
[2017-12-08] MEDS: TACROLIMUS 1 MG CAPSULE PO SCH ×2 (09:16→20:13)
[2017-12-08] MEDS: SULFAMETH./TRIMETHOPRIM DS 800MG/160MG TABLET PO SCH ×2 (09:16→20:13)
[2017-12-08] MEDS: VENLAFAXINE XR 37.5MG CAP.ER.24H PO SCH (09:16)
[2017-12-08] MEDS: AMLODIPINE 5 MG TABLET PO SCH (09:16)
[2017-12-08] MEDS: OMEPRAZOLE 20 MG CAPSULE.DR PO SCH (09:16)
[2017-12-08] MEDS ORDERED: SULF-169 PO (10:14)
[2017-12-08] MEDS ORDERED: ASPI-621 PO (10:14)
[2017-12-08] MEDS ORDERED: ATOR20TA9 PO (10:14)
[2017-12-08] MEDS: ACETAMINOPHEN 325 MG TABLET PO PRN (13:51)
[2017-12-08] MEDS ORDERED: SODIUM CHLORIDE 0.9%, 500ML IVBOLUS ONE (14:00)
[2017-12-08] MEDS: SODIUM CHLORIDE 0.9% 1,000 ML IV SCH (17:09)
[2017-12-08] MEDS: RIVAROXABAN 15 MG TABLET PO SCH (17:09)
[2017-12-08] MEDS: CARBIDOPA/LEVODOPA 25 MG/100 MG TABLET PO SCH (20:13)
[2017-12-08] MEDS: ATORVASTATIN 20 MG TABLET PO SCH (20:13)
[2017-12-08] MEDS: TAMSULOSIN 0.4 MG CAP.ER.24H PO SCH (20:13)
[2017-12-08] MEDS: HYDROXYUREA 500 MG CAPSULE PO SCH ×2 (20:14→22:44)
[2017-12-08] MEDS ORDERED: HYDROXYUREA 500 MG CAPSULE PO SCH (22:30)
[2017-12-09 01:02] VITALS: BP 148/93
[2017-12-09] MEDS: SODIUM CHLORIDE 0.9% 1,000 ML IV SCH ×2 (05:39→15:00)
[2017-12-09] MEDS: ASPIRIN 81 MG TABLET EC PO SCH (05:39)
[2017-12-09 05:40] VITALS: BP 134/80
[2017-12-09] MEDS: METOPROLOL TARTRATE 25 MG TABLET PO SCH (05:40)
[2017-12-09 07:10] VITALS: BP_SYST 134; BP_SYST 168; BP_DIAS 114; BP_DIAS 88
[2017-12-09 07:11] VITALS: BP 127/87
[2017-12-09 07:12] VITALS: BP 134/92
[2017-12-09] MEDS: GABAPENTIN 100 MG CAPSULE PO SCH ×2 (08:09→15:09)
[2017-12-09] MEDS: OMEPRAZOLE 20 MG CAPSULE.DR PO SCH (08:09)
[2017-12-09] MEDS: MAGNESIUM OXIDE 400 MG TABLET PO SCH (08:09)
[2017-12-09] MEDS: AMLODIPINE 5 MG TABLET PO SCH (08:09)
[2017-12-09] MEDS: TACROLIMUS 1 MG CAPSULE PO SCH (08:10)
[2017-12-09] MEDS: VENLAFAXINE XR 37.5MG CAP.ER.24H PO SCH (08:15)
[2017-12-09] MEDS: SULFAMETH./TRIMETHOPRIM DS 800MG/160MG TABLET PO SCH (08:15)
[2017-12-09] MEDS: ALFUZOSIN HCL 10 MG HOMEMEDPO SCH (08:16)
[2017-12-09] MEDS ORDERED: ASPI-621 PO (09:03)
[2017-12-09] MEDS ORDERED: RIVA15TA PO (09:03)
[2017-12-09 15:11] VITALS: BP_SYST 159; BP_DIAS 93; BP_DIAS 96
== END 2017-12-09 16:40 | disposition home health service (06) | DRG 871 ==
LOC: ED 11:55 → EDIP 13:45 → 5SO 15:12
PROVIDERS: ADMIT Hospitalist; ATTEND Hospitalist
PROC: 0T9B70Z Drainage of Bladder with Drainage Device, Via Natural or Artificial Opening (ICD-10-PCS; principal; 2017-12-04)
DX: A41.9 Sepsis, unspecified organism (principal); N17.0 Acute kidney failure with tubular necrosis; R65.21 Severe sepsis with septic shock; E43 Unspecified severe protein-calorie malnutrition; N18.6 End stage renal disease; C94.6 Myelodysplastic disease, not elsewhere classified; D68.69 Other thrombophilia; K50.90 Crohn's disease, unspecified, without complications; Z94.0 Kidney transplant status; N39.0 Urinary tract infection, site not specified; I12.0 Hypertensive chronic kidney disease with stage 5 chronic kidney disease or end stage renal disease; D63.1 Anemia in chronic kidney disease; E78.5 Hyperlipidemia, unspecified; I25.10 Atherosclerotic heart disease of native coronary artery without angina pectoris; I48.91 Unspecified atrial fibrillation; I73.9 Peripheral vascular disease, unspecified; K21.9 Gastro-esophageal reflux disease without esophagitis; Z96.652 Presence of left artificial knee joint; E55.9 Vitamin D deficiency, unspecified; M10.9 Gout, unspecified; R25.1 Tremor, unspecified; K57.30 Diverticulosis of large intestine without perforation or abscess without bleeding; Z16.19 Resistance to other specified beta lactam antibiotics; R33.8 Other retention of urine; N18.3 Chronic kidney disease, stage 3 (moderate); N40.1 Benign prostatic hyperplasia with lower urinary tract symptoms; Z79.01 Long term (current) use of anticoagulants; Z79.899 Other long term (current) drug therapy; Z82.49 Family history of ischemic heart disease and other diseases of the circulatory system; Z85.828 Personal history of other malignant neoplasm of skin; Z86.718 Personal history of other venous thrombosis and embolism; Z87.440 Personal history of urinary (tract) infections; Z68.23 Body mass index [BMI] 23.0-23.9, adult
CPT/HCPCS: 36415; 70450; 70551; 71045; 80048; 80053; 80061; 80197; 81001; 82040; 82570; 83605; 83690; 83735; 84100; 84156; 84436; 84443; 84484; 85025; 85610; 85730; 87040; 87077; 87086; 87186; 87324; 93005; 93308; 93880; 96361; 96365; 96366; 96368; 99285; J0696; J2543; J3370; J7507; J3475; J7030; J7040; J7050; J7512; J7517

== ENCOUNTER 2017-12-24 16:05 | Emergency (ER) | payer MEDICARE ==
[~2017-12-24] VITALS: Ht 180.3 cm; Wt 75.0 kg
[~2017-12-24 16:05] MED LIST changes: +ASPI-621 PO; +ATOR20TA9 PO; +RIVA15TA PO; +SULF-169 PO
[2017-12-24] MEDS ORDERED: SODIUM CHLORIDE FLUSH 10ML SYR IVF ONE (17:00)
[2017-12-24] MEDS ORDERED: SODIUM CHLORIDE 0.9% 1,000ML IVBOLUS ONE ×2 (17:00→18:30)
[2017-12-24 17:18] LABS: CULTURE INDICATED? NO; MICROSCOPIC INDICATED
[2017-12-24 17:43] LABS: ALANINE AMINOTRANSFERASE 13 U/L (12-78); ALBUMIN 2.9 g/dL (3.4-5.0); ANION GAP 7 mmol/L (5-15); CALCIUM 8.6 mg/dL (8.5-10.1); CHLORIDE 114 mmol/L (98-107)
[2017-12-24 17:48] LABS: ALKALINE PHOSPHATASE 62 U/L (45-117); BILIRUBIN,TOTAL 0.8 mg/dL (0.2-1.0); TOTAL PROTEIN 6.1 g/dL (6.4-8.2); TROPONIN I < 0.015 ng/mL (0.000-0.045)
[2017-12-24 17:52] LABS: MEAN CORPUSCULAR HEMOGLOBIN 32.7 pg (27.5-34.5); MEAN CORPUSCULAR HGB CONC 32.5 g/dL (33.2-36.2); MEAN CORPUSCULAR VOLUME 100.8 fL (81-97); MEAN PLATELET VOLUME 10.9 fL (7.4-10.4); PLATELET COUNT 327 x10^3/uL (130-400); RED BLOOD COUNT 4.54 x10^6/uL (4.38-5.82); RED CELL DISTRIBUTION WIDTH 18.2 % (9.4-14.8)
[2017-12-24 18:01] VITALS: BP 114/74
[2017-12-24 18:17] LABS: BASOPHILS # (AUTO) 0.12 x10^3/uL (0-0.1); BASOPHILS % (AUTO) 1 % (0-1); EOSINOPHILS # (AUTO) 0.07 x10^3/uL (0-0.4); EOSINOPHILS % (AUTO) 1 % (1-7); LYMPHOCYTES # (AUTO) 1.53 x10^3/uL (1-3.4); LYMPHOCYTES % (AUTO) 17 % (22-44); MONOCYTES # (AUTO) 1.23 x10^3/uL (0.2-0.8); MONOCYTES % (AUTO) 14 % (2-9); NEUTROPHILS # (AUTO) 5.87 x10^3/uL (1.8-6.8); NEUTROPHILS % (AUTO) 67 % (42-75)
[2017-12-24 18:18] LABS: MD SCAN
== END 2017-12-24 19:00 | disposition other institution (70) ==
LOC: ED 17:59
DX: E86.0 Dehydration (principal); N28.9 Disorder of kidney and ureter, unspecified; I10 Essential (primary) hypertension; I48.91 Unspecified atrial fibrillation
CPT/HCPCS: 36415; 71045; 80053; 81001; 84484; 85025; 93005; 96360; 96361; 99285; J7030

== ENCOUNTER 2018-02-11 09:48 | Inpatient (IN) | payer MEDICARE ==
[~2018-02-11] VITALS: Ht 180.3 cm; Wt 82.7 kg
[~2018-02-11 09:48] MED LIST changes: -AMLO5TAB2 PO; +AMLO5TAB7 PO
[2018-02-11 10:52] LABS: ALBUMIN 3.6 g/dL (3.4-5.0); ANION GAP 10 mmol/L (5-15); CALCIUM 10.2 mg/dL (8.5-10.1); CHLORIDE 103 mmol/L (98-107)
[2018-02-11 10:56] LABS: ALANINE AMINOTRANSFERASE 28 U/L (12-78); ALKALINE PHOSPHATASE 89 U/L (45-117); BILIRUBIN,TOTAL 0.8 mg/dL (0.2-1.0); CREATININE 1.47 mg/dL (0.7-1.3)
[2018-02-11 11:25] LABS: MEAN CORPUSCULAR HEMOGLOBIN 32.7 pg (27.5-34.5); MEAN CORPUSCULAR HGB CONC 32.6 g/dL (33.2-36.2); MEAN CORPUSCULAR VOLUME 100.3 fL (81-97); PLATELET COUNT 277 x10^3/uL (130-400); RED BLOOD COUNT 5.52 x10^6/uL (4.38-5.82); RED CELL DISTRIBUTION WIDTH 16.2 % (9.4-14.8)
[2018-02-11 11:26] LABS: MD YES
[2018-02-11] MEDS ORDERED: POTASSIUM CHLORIDE 20 MEQ TAB.ER.PRT PO ONE (11:30)
[2018-02-11 11:36] LABS: LYMPH#(MANUAL) 1.43 x10^3/uL (1-3.4); LYMPHS% (MANUAL) 15 % (22-44); MONOS#(MANUAL) 0.67 x10^3/uL (0.3-2.7); MONOS% (MANUAL) 7 % (2-9); SEG#(MANUAL) 7.41 x10^3/uL (1.8-6.8); SEGS% (MANUAL) 78 % (42-75)
[2018-02-11 11:38] LABS: <RBC MORPHOLOGY> NORMAL
[2018-02-11 11:39] LABS: <PLATELET ESTIMATE> ADEQUATE; GIANT PLATELETS 1+; LARGE PLATELETS 2+
[2018-02-11] MEDS ORDERED: MORPHINE SULFATE 4 MG/ML, 1ML ONE (11:54)
[2018-02-11] MEDS ORDERED: morphine SULFATE 10 MG/ML, 1ML IVPush ONE (12:00)
[2018-02-11] MEDS ORDERED: SODIUM CHLORIDE 0.9% 1,000ML IVBOLUS ONE (12:00)
[2018-02-11] MEDS ORDERED: POTASSIUM CHLORIDE 20 MEQ TAB.ER.PRT ONE (12:13)
[2018-02-11] MEDS ORDERED: ONDANSETRON ODT 4 MG ONE (13:23)
[2018-02-11] MEDS ORDERED: ONDANSETRON ODT 4 MG PO ONE (13:30)
[2018-02-11] MEDS ORDERED: TAMS0.4C2 PO (14:24)
[2018-02-11] MEDS ORDERED: OMEP-110 PO (14:24)
[2018-02-11] MEDS ORDERED: HYDR500C3 PO (14:24)
[2018-02-11] MEDS ORDERED: VENL150T PO (14:24)
[2018-02-11] MEDS ORDERED: PROP10DR2 OT (14:24)
[2018-02-11] MEDS ORDERED: MYCO500T3 PO (14:24)
[2018-02-11] MEDS ORDERED: LAMO25TB7 PO (14:24)
[2018-02-11] MEDS ORDERED: RIVA20TA PO (14:24)
[2018-02-11] MEDS ORDERED: PROM25TA10 PO (14:24)
[2018-02-11] MEDS ORDERED: PRED5TAB PO (14:24)
[2018-02-11] MEDS ORDERED: METO25TA35 PO (14:24)
[2018-02-11] MEDS ORDERED: ONDANSETRON 2MG/ML, 2ML IVPush PRN (15:00)
[2018-02-11] MEDS ORDERED: LABETALOL 5MG/ML, 20ML IVPush PRN (15:00)
[2018-02-11] MEDS ORDERED: ONDANSETRON ODT 4 MG PO PRN (15:00)
[2018-02-11] MEDS ORDERED: DOCUSATE 100 MG CAPSULE PO PRN (15:00)
[2018-02-11] MEDS ORDERED: BISACODYL 10 MG SUPP PR PRN (15:00)
[2018-02-11] MEDS ORDERED: hydrALAzine 20 MG/ML, 1ML IVPush PRN (15:00)
[2018-02-11] MEDS ORDERED: GADOBUTROL 7.5 MMOL/7.5 ML PFS ONE (15:27)
[2018-02-11 15:44] LABS: HEMOGLOBIN A1C 5.9 % (4.2-6.3)
[2018-02-11] MEDS: MORPHINE SULFATE 4 MG/ML, 1ML IVPush PRN ×2 (16:08→21:09)
[2018-02-11] MEDS: SODIUM CHLORIDE 0.9% 1,000 ML IV SCH (16:09)
[2018-02-11 16:15] VITALS: BP 132/79
[2018-02-11 16:21] LABS: FOLATE LEVEL > 20.0 ng/mL (3.1-17.5)
[2018-02-11] MEDS ORDERED: RIVAROXABAN 20 MG TABLET PO SCH (16:30)
[2018-02-11 17:11] LABS: MICROSCOPIC AUTO
[2018-02-11 17:15] LABS: CULTURE INDICATED? NO
[2018-02-11 19:55] VITALS: BP 99/63
[2018-02-11] MEDS: HYDROXYUREA 500 MG CAPSULE PO SCH (20:59)
[2018-02-11 21:00] VITALS: BP 126/74
[2018-02-11] MEDS ORDERED: METOPROLOL TARTRATE 25 MG TABLET PO SCH (21:00)
[2018-02-11] MEDS: TACROLIMUS 1 MG CAPSULE PO SCH (21:09)
[2018-02-12 01:22] VITALS: BP 145/88
[2018-02-12] MEDS: SODIUM CHLORIDE 0.9% 1,000 ML IV SCH ×2 (01:40→13:45)
[2018-02-12 06:20] LABS: ALBUMIN 2.7 g/dL (3.4-5.0); ANION GAP 11 mmol/L (5-15); CALCIUM 8.5 mg/dL (8.5-10.1); CHLORIDE 106 mmol/L (98-107)
[2018-02-12 06:24] LABS: ALANINE AMINOTRANSFERASE 46 U/L (12-78); ALKALINE PHOSPHATASE 78 U/L (45-117); BILIRUBIN,TOTAL 0.8 mg/dL (0.2-1.0); CREATININE 2.04 mg/dL (0.7-1.3); TOTAL PROTEIN 6.3 g/dL (6.4-8.2)
[2018-02-12 06:47] LABS: BASOPHILS # (AUTO) 0.08 x10^3/uL (0-0.1); BASOPHILS % (AUTO) 1 % (0-1); EOSINOPHILS # (AUTO) 0.04 x10^3/uL (0-0.4); EOSINOPHILS % (AUTO) 0 % (1-7); LYMPHOCYTES # (AUTO) 1.49 x10^3/uL (1-3.4); LYMPHOCYTES % (AUTO) 12 % (22-44); MD SCAN; MEAN CORPUSCULAR HEMOGLOBIN 32.6 pg (27.5-34.5); MEAN CORPUSCULAR HGB CONC 32.5 g/dL (33.2-36.2); MEAN CORPUSCULAR VOLUME 100.4 fL (81-97); MEAN PLATELET VOLUME 11.8 fL (7.4-10.4); MONOCYTES # (AUTO) 1.28 x10^3/uL (0.2-0.8); MONOCYTES % (AUTO) 10 % (2-9); NEUTROPHILS # (AUTO) 9.77 x10^3/uL (1.8-6.8); NEUTROPHILS % (AUTO) 77 % (42-75); PLATELET COUNT 258 x10^3/uL (130-400); RED CELL DISTRIBUTION WIDTH 16.2 % (9.4-14.8)
[2018-02-12 06:54] VITALS: BP 127/93
[2018-02-12] MEDS ORDERED: MAGNESIUM SULFATE PMX 2GM/50ML 50 ML IV ONE (07:00)
[2018-02-12] MEDS: MORPHINE SULFATE 4 MG/ML, 1ML IVPush PRN ×2 (07:53→12:48)
[2018-02-12] MEDS: METOPROLOL TARTRATE 25 MG TABLET PO SCH ×2 (07:58→21:00)
[2018-02-12] MEDS: LAMOTRIGINE 25 MG TABLET PO SCH (07:58)
[2018-02-12] MEDS: TAMSULOSIN 0.4 MG CAP.ER.24H PO SCH (07:58)
[2018-02-12] MEDS: SENNA/DOCUSATE TABLET PO SCH (08:00)
[2018-02-12] MEDS: OMEPRAZOLE 20 MG CAPSULE.DR PO SCH (08:00)
[2018-02-12] MEDS: TACROLIMUS 1 MG CAPSULE PO SCH ×2 (08:01→21:00)
[2018-02-12] MEDS ORDERED: VENLAFAXINE 75 MG CAP ER PO SCH (09:00)
[2018-02-12] MEDS: HYDROcodone/APAP 5/325 TABLET PO PRN ×2 (10:07→16:58)
[2018-02-12 10:25] VITALS: BP 116/73
[2018-02-12] MEDS ORDERED: RIVAROXABAN 15 MG TABLET PO SCH (11:35)
[2018-02-12 12:27] LABS: TOTAL IRON BINDING CAPACITY 215 mcg/dL (250-450)
[2018-02-12 12:31] LABS: % IRON SATURATION 7 % (20-55); IRON LEVEL 15 mcg/dL (65-175)
[2018-02-12 13:00] VITALS: BP 125/81
[2018-02-12 15:55] LABS: TROPONIN I 0.997 ng/mL (0.000-0.045)
[2018-02-12 16:47] VITALS: BP 136/75
[2018-02-12] MEDS: IRON SUCROSE COMPLEX 100MG/5ML IV SCH (18:23)
[2018-02-12 19:32] VITALS: BP 88/52
[2018-02-12] MEDS: HYDROXYUREA 500 MG CAPSULE PO SCH (21:00)
[2018-02-12 23:38] LABS: TROPONIN I 0.754 ng/mL (0.000-0.045)
[2018-02-13] MEDS: SODIUM CHLORIDE 0.9% 1,000 ML IV SCH ×2 (03:32→17:34)
[2018-02-13 04:11] VITALS: BP 157/74
[2018-02-13 07:11] LABS: ALANINE AMINOTRANSFERASE 86 U/L (12-78); ALBUMIN 2.4 g/dL (3.4-5.0); ANION GAP 12 mmol/L (5-15); CHLORIDE 104 mmol/L (98-107); CREATININE 2.83 mg/dL (0.7-1.3)
[2018-02-13 07:13] LABS: ALKALINE PHOSPHATASE 73 U/L (45-117); BILIRUBIN,TOTAL 1.6 mg/dL (0.2-1.0)
[2018-02-13] MEDS: MORPHINE SULFATE 4 MG/ML, 1ML IVPush PRN (07:29)
[2018-02-13] MEDS: HYDROcodone/APAP 5/325 TABLET PO PRN (07:29)
[2018-02-13 07:59] LABS: MEAN CORPUSCULAR HEMOGLOBIN 32.4 pg (27.5-34.5); MEAN CORPUSCULAR HGB CONC 32.6 g/dL (33.2-36.2); MEAN CORPUSCULAR VOLUME 99.3 fL (81-97); MEAN PLATELET VOLUME 11.1 fL (7.4-10.4); PLATELET COUNT 227 x10^3/uL (130-400); RED BLOOD COUNT 3.62 x10^6/uL (4.38-5.82); RED CELL DISTRIBUTION WIDTH 15.6 % (9.4-14.8)
[2018-02-13 08:00] VITALS: BP 154/103
[2018-02-13 08:07] LABS: MD YES
[2018-02-13 08:26] LABS: BAND#(MANUAL) 1.23 x10^3/uL; BANDS%(MANUAL) 4 % (0-7); EOS#(MANUAL) 0.62 x10^3/uL (0.0-0.4); EOS% (MANUAL) 2 % (1-7); LYMPH#(MANUAL) 0.62 x10^3/uL (1-3.4); LYMPHS% (MANUAL) 2 % (22-44); SEG#(MANUAL) 28.34 x10^3/uL (1.8-6.8); SEGS% (MANUAL) 92 % (42-75)
[2018-02-13 08:30] LABS: <PLATELET ESTIMATE> ADEQUATE; <PLT MORPHOLOGY> NORMAL PLT MORPH; <RBC MORPHOLOGY> NORMAL; TOXIC GRAN 1+
[2018-02-13] MEDS: LAMOTRIGINE 25 MG TABLET PO SCH (08:38)
[2018-02-13] MEDS: TACROLIMUS 1 MG CAPSULE PO SCH ×2 (08:39→21:00)
[2018-02-13] MEDS: TAMSULOSIN 0.4 MG CAP.ER.24H PO SCH (08:42)
[2018-02-13] MEDS: SENNA/DOCUSATE TABLET PO SCH (08:43)
[2018-02-13] MEDS: METOPROLOL TARTRATE 25 MG TABLET PO SCH ×2 (08:43→21:21)
[2018-02-13] MEDS: IRON SUCROSE COMPLEX 100MG/5ML IV SCH (08:43)
[2018-02-13] MEDS: OMEPRAZOLE 20 MG CAPSULE.DR PO SCH (08:43)
[2018-02-13] MEDS ORDERED: ALBUTEROL SULFATE 2.5 MG/3 ML ONE (10:48)
[2018-02-13] MEDS ORDERED: ALBUTEROL SULFATE 2.5 MG/3 ML NPPB PRN (11:30)
[2018-02-13] MEDS: MEROPENEM 250 MG in SODIUM CHLORIDE 0.9% 100 ML IV SCH (12:01)
[2018-02-13] MEDS: LINEZOLID PMX 600MG/300ML 300 ML IV SCH (12:55)
[2018-02-13 14:05] VITALS: BP 128/87
[2018-02-13 18:56] VITALS: BP 95/58
[2018-02-13 21:17] VITALS: BP 120/70
[2018-02-14] VITALS (8 sets, daily range): BP systolic 123–173; BP diastolic 67–90
[2018-02-14] MEDS: LINEZOLID PMX 600MG/300ML 300 ML IV SCH ×2 (00:14→12:21)
[2018-02-14] MEDS: SODIUM CHLORIDE 0.9% 1,000 ML IV SCH ×2 (03:15→17:50)
[2018-02-14 08:28] LABS: MEAN CORPUSCULAR HEMOGLOBIN 31.9 pg (27.5-34.5); MEAN CORPUSCULAR HGB CONC 32.3 g/dL (33.2-36.2); MEAN CORPUSCULAR VOLUME 98.8 fL (81-97); MEAN PLATELET VOLUME 11.8 fL (7.4-10.4); PLATELET COUNT 209 x10^3/uL (130-400); RED CELL DISTRIBUTION WIDTH 15.8 % (9.4-14.8)
[2018-02-14 08:29] LABS: ALANINE AMINOTRANSFERASE 59 U/L (12-78); ALBUMIN 2.2 g/dL (3.4-5.0); ANION GAP 11 mmol/L (5-15); CHLORIDE 107 mmol/L (98-107); CREATININE 2.69 mg/dL (0.7-1.3)
[2018-02-14 08:32] LABS: ALKALINE PHOSPHATASE 74 U/L (45-117); BILIRUBIN,TOTAL 0.6 mg/dL (0.2-1.0); TOTAL PROTEIN 5.6 g/dL (6.4-8.2)
[2018-02-14 08:36] LABS: MD YES
[2018-02-14 08:37] LABS: BAND#(MANUAL) 0.27 x10^3/uL; BANDS%(MANUAL) 1 % (0-7); MONOS#(MANUAL) 1.37 x10^3/uL (0.3-2.7); MONOS% (MANUAL) 5 % (2-9)
[2018-02-14 08:38] LABS: LYMPH#(MANUAL) 0.27 x10^3/uL (1-3.4); LYMPHS% (MANUAL) 1 % (22-44); SEG#(MANUAL) 25.48 x10^3/uL (1.8-6.8); SEGS% (MANUAL) 93 % (42-75)
[2018-02-14 08:39] LABS: ANISOCYTOSIS 1+
[2018-02-14 08:40] LABS: POLYCHROMASIA 1+
[2018-02-14 08:41] LABS: <PLATELET ESTIMATE> ADEQUATE
[2018-02-14 08:42] LABS: LARGE PLATELETS 1+
[2018-02-14] MEDS: SENNA/DOCUSATE TABLET PO SCH (09:00)
[2018-02-14] MEDS: IRON SUCROSE COMPLEX 100MG/5ML IV SCH (09:13)
[2018-02-14] MEDS: TAMSULOSIN 0.4 MG CAP.ER.24H PO SCH (09:16)
[2018-02-14] MEDS: HYDROcodone/APAP 5/325 TABLET PO PRN ×2 (09:16→22:09)
[2018-02-14] MEDS: METOPROLOL TARTRATE 25 MG TABLET PO SCH ×2 (09:16→21:24)
[2018-02-14] MEDS: OMEPRAZOLE 20 MG CAPSULE.DR PO SCH (09:17)
[2018-02-14] MEDS: LAMOTRIGINE 25 MG TABLET PO SCH (09:30)
[2018-02-14] MEDS: TACROLIMUS 1 MG CAPSULE PO SCH ×2 (09:30→21:00)
[2018-02-14] MEDS: ACETAMINOPHEN 325 MG TABLET PO PRN (11:46)
[2018-02-14] MEDS: MEROPENEM 250 MG in SODIUM CHLORIDE 0.9% 100 ML IV SCH (12:30)
[2018-02-14] MEDS: AMPICILLIN/SULBACTAM 3 GM in SODIUM CHLORIDE 0.9% 100 ML IV SCH (14:14)
[2018-02-14] MEDS: SODIUM CHLORIDE INHALATION 7%, 4 ML NPPB SCH ×2 (15:06→21:50)
[2018-02-14 15:23] LABS: HCT (SEDRATE) 29.2 % (39.2-51.8)
[2018-02-14] MEDS: DOXYCYCLINE 100MG CAP PO SCH (21:23)
[2018-02-15] MEDS: AMPICILLIN/SULBACTAM 3 GM in SODIUM CHLORIDE 0.9% 100 ML IV SCH ×2 (01:11→15:18)
[2018-02-15 01:19] VITALS: BP 149/88
[2018-02-15] MEDS: SODIUM CHLORIDE 0.9% 1,000 ML IV SCH (04:40)
[2018-02-15] MEDS: SODIUM CHLORIDE INHALATION 7%, 4 ML NPPB SCH ×4 (04:40→21:00)
[2018-02-15 06:41] VITALS: BP 159/83
[2018-02-15] MEDS ORDERED: DOXYCYCLINE 100MG TABLET ONE (09:17)
[2018-02-15] MEDS: TAMSULOSIN 0.4 MG CAP.ER.24H PO SCH (09:31)
[2018-02-15] MEDS: OMEPRAZOLE 20 MG CAPSULE.DR PO SCH (09:32)
[2018-02-15] MEDS: LAMOTRIGINE 25 MG TABLET PO SCH (09:32)
[2018-02-15] MEDS: TACROLIMUS 1 MG CAPSULE PO SCH ×2 (09:32→20:29)
[2018-02-15] MEDS: SENNA/DOCUSATE TABLET PO SCH (09:32)
[2018-02-15] MEDS: METOPROLOL TARTRATE 25 MG TABLET PO SCH ×2 (09:33→20:30)
[2018-02-15] MEDS: DOXYCYCLINE 100MG CAP PO SCH ×2 (09:34→20:27)
[2018-02-15] MEDS: IRON SUCROSE COMPLEX 100MG/5ML IV SCH (09:34)
[2018-02-15] MEDS: LACTATED RINGERS 1,000 ML IV SCH (10:22)
[2018-02-15 12:51] LABS: MEAN CORPUSCULAR HEMOGLOBIN 32.7 pg (27.5-34.5); MEAN CORPUSCULAR HGB CONC 32.7 g/dL (33.2-36.2); MEAN CORPUSCULAR VOLUME 100.2 fL (81-97); RED BLOOD COUNT 3.06 x10^6/uL (4.38-5.82); RED CELL DISTRIBUTION WIDTH 15.9 % (9.4-14.8)
[2018-02-15 12:56] LABS: ANION GAP 8 mmol/L (5-15); CALCIUM 9.2 mg/dL (8.5-10.1); CHLORIDE 112 mmol/L (98-107); CREATININE 2.51 mg/dL (0.7-1.3)
[2018-02-15 13:03] LABS: MEAN PLATELET VOLUME 11.5 fL (7.4-10.4); PLATELET COUNT 294 x10^3/uL (130-400)
[2018-02-15 13:04] LABS: BASOPHILS % (AUTO) 0 % (0-1); EOSINOPHILS # (AUTO) 0.02 x10^3/uL (0-0.4); EOSINOPHILS % (AUTO) 0 % (1-7); LYMPHOCYTES # (AUTO) 1.52 x10^3/uL (1-3.4); LYMPHOCYTES % (AUTO) 7 % (22-44); MD SCAN; MONOCYTES # (AUTO) 1.38 x10^3/uL (0.2-0.8); MONOCYTES % (AUTO) 6 % (2-9); NEUTROPHILS # (AUTO) 19.97 x10^3/uL (1.8-6.8); NEUTROPHILS % (AUTO) 87 % (42-75)
[2018-02-15 17:58] VITALS: BP 163/105
[2018-02-15 18:11] VITALS: BP 185/105
[2018-02-15 20:30] VITALS: BP 179/103
[2018-02-15] MEDS: MORPHINE SULFATE 4 MG/ML, 1ML IVPush PRN (20:41)
[2018-02-15 22:11] VITALS: BP 175/91
[2018-02-16 00:35] VITALS: BP 173/91
[2018-02-16] MEDS: AMPICILLIN/SULBACTAM 3 GM in SODIUM CHLORIDE 0.9% 100 ML IV SCH ×2 (00:47→13:22)
[2018-02-16] MEDS: LACTATED RINGERS 1,000 ML IV SCH (00:47)
[2018-02-16] MEDS: MORPHINE SULFATE 4 MG/ML, 1ML IVPush PRN ×2 (00:48→20:51)
[2018-02-16] MEDS: SODIUM CHLORIDE INHALATION 7%, 4 ML NPPB SCH ×4 (03:00→21:00)
[2018-02-16] MEDS ORDERED: SODIUM CHLORIDE INHALATION 7%, 4 ML NPPB ONE (05:00)
[2018-02-16 08:57] VITALS: BP 132/92
[2018-02-16] MEDS: TACROLIMUS 1 MG CAPSULE PO SCH ×2 (09:00→20:17)
[2018-02-16] MEDS: DOXYCYCLINE 100MG CAP PO SCH ×2 (09:00→20:19)
[2018-02-16] MEDS ORDERED: DOXYCYCLINE 100MG TABLET ONE ×2 (09:13→20:11)
[2018-02-16] MEDS: SENNA/DOCUSATE TABLET PO SCH (09:27)
[2018-02-16] MEDS: OMEPRAZOLE 20 MG CAPSULE.DR PO SCH (09:27)
[2018-02-16] MEDS: METOPROLOL TARTRATE 25 MG TABLET PO SCH ×2 (09:27→20:18)
[2018-02-16] MEDS: LAMOTRIGINE 25 MG TABLET PO SCH (09:27)
[2018-02-16] MEDS: TAMSULOSIN 0.4 MG CAP.ER.24H PO SCH (09:28)
[2018-02-16] MEDS ORDERED: AMLODIPINE 5 MG TABLET PO ONE (09:30)
[2018-02-16] MEDS: HYDROcodone/APAP 5/325 TABLET PO PRN ×2 (09:30→17:15)
[2018-02-16] MEDS: IRON SUCROSE COMPLEX 100MG/5ML IV SCH (09:31)
[2018-02-16] MEDS: AMLODIPINE 2.5 MG TABLET PO SCH (11:43)
[2018-02-16 12:24] LABS: ALANINE AMINOTRANSFERASE 48 U/L (12-78); ALBUMIN 2.6 g/dL (3.4-5.0); ANION GAP 11 mmol/L (5-15); CALCIUM 9.6 mg/dL (8.5-10.1); CHLORIDE 106 mmol/L (98-107); CREATININE 2.09 mg/dL (0.7-1.3)
[2018-02-16 12:26] LABS: ALKALINE PHOSPHATASE 81 U/L (45-117); BILIRUBIN,TOTAL 1.4 mg/dL (0.2-1.0); TOTAL PROTEIN 6.8 g/dL (6.4-8.2)
[2018-02-16 12:34] LABS: MEAN CORPUSCULAR HGB CONC 32.2 g/dL (33.2-36.2); MEAN CORPUSCULAR VOLUME 99.4 fL (81-97); MEAN PLATELET VOLUME 11.2 fL (7.4-10.4); PLATELET COUNT 363 x10^3/uL (130-400); RED BLOOD COUNT 3.61 x10^6/uL (4.38-5.82); RED CELL DISTRIBUTION WIDTH 16.1 % (9.4-14.8)
[2018-02-16 12:35] LABS: MD YES
[2018-02-16 12:37] LABS: ANISOCYTOSIS 1+; BAND#(MANUAL) 0.18 x10^3/uL; BANDS%(MANUAL) 1 % (0-7); LYMPH#(MANUAL) 0.54 x10^3/uL (1-3.4); LYMPHS% (MANUAL) 3 % (22-44); MONOS#(MANUAL) 1.44 x10^3/uL (0.3-2.7); MONOS% (MANUAL) 8 % (2-9); NRBC % (MANUAL) 1 % (0-1); POLYCHROMASIA 1+; SEG#(MANUAL) 15.84 x10^3/uL (1.8-6.8); SEGS% (MANUAL) 88 % (42-75)
[2018-02-16 12:38] LABS: <PLATELET ESTIMATE> ADEQUATE; GIANT PLATELETS 1+; LARGE PLATELETS 1+
[2018-02-16 14:33] VITALS: BP 132/75
[2018-02-16 20:19] VITALS: BP 134/80
[2018-02-17] MEDS: AMPICILLIN/SULBACTAM 3 GM in SODIUM CHLORIDE 0.9% 100 ML IV SCH ×2 (01:23→14:26)
[2018-02-17] MEDS: LACTATED RINGERS 1,000 ML IV SCH (01:24)
[2018-02-17 01:32] VITALS: BP 157/78
[2018-02-17] MEDS: SODIUM CHLORIDE INHALATION 7%, 4 ML NPPB SCH ×2 (03:00→09:00)
[2018-02-17 05:03] LABS: HCT (SEDRATE) 34.3 % (39.2-51.8)
[2018-02-17 05:06] LABS: MEAN CORPUSCULAR HEMOGLOBIN 32.5 pg (27.5-34.5); MEAN CORPUSCULAR HGB CONC 32.5 g/dL (33.2-36.2); MEAN CORPUSCULAR VOLUME 99.9 fL (81-97); MEAN PLATELET VOLUME 11.1 fL (7.4-10.4); PLATELET COUNT 265 x10^3/uL (130-400); RED BLOOD COUNT 3.44 x10^6/uL (4.38-5.82); RED CELL DISTRIBUTION WIDTH 16.3 % (9.4-14.8)
[2018-02-17 05:10] LABS: ALBUMIN 2.3 g/dL (3.4-5.0); ANION GAP 9 mmol/L (5-15); CALCIUM 8.9 mg/dL (8.5-10.1); CHLORIDE 106 mmol/L (98-107); CREATININE 1.91 mg/dL (0.7-1.3)
[2018-02-17 06:03] LABS: BASOPHILS # (AUTO) 0.07 x10^3/uL (0-0.1); BASOPHILS % (AUTO) 0 % (0-1); EOSINOPHILS # (AUTO) 0.13 x10^3/uL (0-0.4); EOSINOPHILS % (AUTO) 1 % (1-7); LYMPHOCYTES # (AUTO) 2.02 x10^3/uL (1-3.4); LYMPHOCYTES % (AUTO) 13 % (22-44); MD SCAN; MONOCYTES # (AUTO) 1.54 x10^3/uL (0.2-0.8); MONOCYTES % (AUTO) 10 % (2-9); NEUTROPHILS # (AUTO) 11.45 x10^3/uL (1.8-6.8); NEUTROPHILS % (AUTO) 75 % (42-75)
[2018-02-17 07:24] VITALS: BP 166/82
[2018-02-17] MEDS ORDERED: DOXYCYCLINE 100MG TABLET ONE (08:55)
[2018-02-17] MEDS: DOXYCYCLINE 100MG CAP PO SCH ×2 (09:00→20:07)
[2018-02-17] MEDS: METOPROLOL TARTRATE 25 MG TABLET PO SCH ×2 (09:01→20:07)
[2018-02-17] MEDS: OMEPRAZOLE 20 MG CAPSULE.DR PO SCH (09:01)
[2018-02-17] MEDS: SENNA/DOCUSATE TABLET PO SCH (09:01)
[2018-02-17] MEDS: AMLODIPINE 2.5 MG TABLET PO SCH (09:01)
[2018-02-17] MEDS: LAMOTRIGINE 25 MG TABLET PO SCH (09:03)
[2018-02-17] MEDS: HYDROcodone/APAP 5/325 TABLET PO PRN ×2 (09:03→23:23)
[2018-02-17] MEDS: TAMSULOSIN 0.4 MG CAP.ER.24H PO SCH (09:03)
[2018-02-17] MEDS: IRON SUCROSE COMPLEX 100MG/5ML IV SCH (09:04)
[2018-02-17] MEDS: TACROLIMUS 1 MG CAPSULE PO SCH ×2 (09:10→20:07)
[2018-02-17 12:59] VITALS: BP 130/72
[2018-02-17] MEDS: POTASSIUM ACID PHOSPHATE 500 MG TABLET.SOL PO SCH ×2 (14:27→20:14)
[2018-02-17 20:01] VITALS: BP 149/92
[2018-02-18 01:00] VITALS: BP 155/91
[2018-02-18] MEDS: AMPICILLIN/SULBACTAM 3 GM in SODIUM CHLORIDE 0.9% 100 ML IV SCH ×2 (01:17→13:13)
[2018-02-18] MEDS: LACTATED RINGERS 1,000 ML IV SCH (01:17)
[2018-02-18 06:50] VITALS: BP 190/104
[2018-02-18 07:36] LABS: MEAN CORPUSCULAR HEMOGLOBIN 31.6 pg (27.5-34.5); MEAN CORPUSCULAR HGB CONC 31.5 g/dL (33.2-36.2); MEAN CORPUSCULAR VOLUME 100.2 fL (81-97); MEAN PLATELET VOLUME 10.4 fL (7.4-10.4); PLATELET COUNT 483 x10^3/uL (130-400); RED BLOOD COUNT 3.92 x10^6/uL (4.38-5.82); RED CELL DISTRIBUTION WIDTH 16.5 % (9.4-14.8)
[2018-02-18 07:38] LABS: ALANINE AMINOTRANSFERASE 50 U/L (12-78); ALBUMIN 2.7 g/dL (3.4-5.0); ANION GAP 7 mmol/L (5-15); CALCIUM 9.5 mg/dL (8.5-10.1); CHLORIDE 104 mmol/L (98-107)
[2018-02-18 07:41] LABS: ALKALINE PHOSPHATASE 91 U/L (45-117); BILIRUBIN,TOTAL 1.6 mg/dL (0.2-1.0)
[2018-02-18] MEDS ORDERED: DOXYCYCLINE 100MG TABLET ONE (07:51)
[2018-02-18 07:57] LABS: MD YES
[2018-02-18 07:59] LABS: EOS#(MANUAL) 0.16 x10^3/uL (0.0-0.4); EOS% (MANUAL) 1 % (1-7); LYMPHS% (MANUAL) 12 % (22-44); MONOS#(MANUAL) 2.53 x10^3/uL (0.3-2.7); MONOS% (MANUAL) 16 % (2-9)
[2018-02-18 08:02] LABS: BAND#(MANUAL) 0.63 x10^3/uL; BANDS%(MANUAL) 4 % (0-7); METAMYELOCYTES% (MANUAL) 1 % (0-1); MYELOCYTES# (MANUAL) 0.16 x10^3/uL (0-0); MYELOCYTES% (MANUAL) 1 % (0-0)
[2018-02-18 08:03] LABS: ANISOCYTOSIS 1+; POLYCHROMASIA 1+
[2018-02-18 08:04] LABS: <PLATELET ESTIMATE> INCREASED; GIANT PLATELETS 1+; LARGE PLATELETS 2+; TARGET CELLS 1+
[2018-02-18 08:05] LABS: BASOS#(MANUAL) 0.16 x10^3/uL (0-0.1); BASOS% (MANUAL) 1 % (0-1); SEGS% (MANUAL) 64 % (42-75)
[2018-02-18] MEDS: SENNA/DOCUSATE TABLET PO SCH (08:05)
[2018-02-18] MEDS: METOPROLOL TARTRATE 25 MG TABLET PO SCH ×2 (08:05→20:52)
[2018-02-18] MEDS: POTASSIUM ACID PHOSPHATE 500 MG TABLET.SOL PO SCH (08:05)
[2018-02-18] MEDS: LAMOTRIGINE 25 MG TABLET PO SCH (08:05)
[2018-02-18] MEDS: OMEPRAZOLE 20 MG CAPSULE.DR PO SCH (08:05)
[2018-02-18] MEDS: TAMSULOSIN 0.4 MG CAP.ER.24H PO SCH (08:05)
[2018-02-18] MEDS: IRON SUCROSE COMPLEX 100MG/5ML IV SCH (08:06)
[2018-02-18] MEDS: AMLODIPINE 2.5 MG TABLET PO SCH (08:07)
[2018-02-18] MEDS: DOXYCYCLINE 100MG CAP PO SCH ×2 (08:07→20:54)
[2018-02-18] MEDS: TACROLIMUS 1 MG CAPSULE PO SCH ×2 (08:07→20:54)
[2018-02-18] MEDS: ACETAMINOPHEN 325 MG TABLET PO PRN (08:31)
[2018-02-18] MEDS: DOXYCYCLINE 100MG TABLET PO SCH ×2 (09:00→20:57)
[2018-02-18 09:28] VITALS: BP 131/85
[2018-02-18 13:24] VITALS: BP 143/87
[2018-02-18] MEDS: HYDROcodone/APAP 5/325 TABLET PO PRN (15:21)
[2018-02-18 18:34] VITALS: BP 151/78
[2018-02-19] MEDS ORDERED: MAGNESIUM SULFATE PMX 2GM/50ML 50 ML IV ONE
[2018-02-19] MEDS: AMPICILLIN/SULBACTAM 3 GM in SODIUM CHLORIDE 0.9% 100 ML IV SCH (00:27)
[2018-02-19] MEDS: HYDROcodone/APAP 5/325 TABLET PO PRN ×2 (01:27→10:33)
[2018-02-19 01:28] VITALS: BP 157/91
[2018-02-19 06:49] VITALS: BP 166/82
[2018-02-19 07:35] LABS: ALBUMIN 2.5 g/dL (3.4-5.0); ANION GAP 8 mmol/L (5-15); CALCIUM 8.9 mg/dL (8.5-10.1); CHLORIDE 104 mmol/L (98-107)
[2018-02-19 07:37] LABS: MEAN CORPUSCULAR HEMOGLOBIN 31.9 pg (27.5-34.5); MEAN CORPUSCULAR HGB CONC 31.6 g/dL (33.2-36.2); MEAN CORPUSCULAR VOLUME 100.8 fL (81-97); MEAN PLATELET VOLUME 10.4 fL (7.4-10.4); PLATELET COUNT 492 x10^3/uL (130-400); RED CELL DISTRIBUTION WIDTH 16.9 % (9.4-14.8)
[2018-02-19 08:07] LABS: MD YES
[2018-02-19 08:08] LABS: BAND#(MANUAL) 0.14 x10^3/uL; BANDS%(MANUAL) 1 % (0-7); BASOS#(MANUAL) 0.14 x10^3/uL (0-0.1); BASOS% (MANUAL) 1 % (0-1); EOS#(MANUAL) 0.14 x10^3/uL (0.0-0.4); EOS% (MANUAL) 1 % (1-7); LYMPH#(MANUAL) 1.97 x10^3/uL (1-3.4); LYMPHS% (MANUAL) 14 % (22-44); MONOS#(MANUAL) 1.13 x10^3/uL (0.3-2.7); MONOS% (MANUAL) 8 % (2-9); NRBC % (MANUAL) 1 % (0-1); SEG#(MANUAL) 10.58 x10^3/uL (1.8-6.8); SEGS% (MANUAL) 75 % (42-75)
[2018-02-19 08:09] LABS: <PLATELET ESTIMATE> INCREASED
[2018-02-19 08:10] LABS: ANISOCYTOSIS 1+; GIANT PLATELETS 1+; LARGE PLATELETS 2+
[2018-02-19 08:11] LABS: HYPOCHROMIA 1+; TARGET CELLS 1+
[2018-02-19] MEDS: SENNA/DOCUSATE TABLET PO SCH (09:00)
[2018-02-19] MEDS: IRON SUCROSE COMPLEX 100MG/5ML IV SCH (09:11)
[2018-02-19] MEDS: TAMSULOSIN 0.4 MG CAP.ER.24H PO SCH (09:16)
[2018-02-19] MEDS: OMEPRAZOLE 20 MG CAPSULE.DR PO SCH (09:16)
[2018-02-19] MEDS: LAMOTRIGINE 25 MG TABLET PO SCH (09:16)
[2018-02-19] MEDS: TACROLIMUS 1 MG CAPSULE PO SCH ×2 (09:16→22:37)
[2018-02-19] MEDS: METOPROLOL TARTRATE 25 MG TABLET PO SCH ×2 (09:16→22:12)
[2018-02-19] MEDS: DOXYCYCLINE 100MG CAP PO SCH (09:16)
[2018-02-19] MEDS: AMLODIPINE 2.5 MG TABLET PO SCH (09:16)
[2018-02-19 13:10] VITALS: BP 135/78
[2018-02-19] MEDS ORDERED: POTASSIUM CHLORIDE 20 MEQ TAB.ER.PRT PO ONE (14:30)
[2018-02-19 18:44] VITALS: BP 123/77
[2018-02-19] MEDS: ACETAMINOPHEN 325 MG TABLET PO PRN (19:53)
[2018-02-20 01:09] VITALS: BP_SYST 146; BP_SYST 167; BP_DIAS 102; BP_DIAS 96
[2018-02-20 08:08] LABS: ANION GAP 10 mmol/L (5-15); CALCIUM 9.3 mg/dL (8.5-10.1); CHLORIDE 106 mmol/L (98-107); CREATININE 1.78 mg/dL (0.7-1.3)
[2018-02-20 08:09] VITALS: BP 165/105
[2018-02-20] MEDS: TAMSULOSIN 0.4 MG CAP.ER.24H PO SCH (08:46)
[2018-02-20] MEDS: LAMOTRIGINE 25 MG TABLET PO SCH (08:46)
[2018-02-20] MEDS: TACROLIMUS 1 MG CAPSULE PO SCH (08:47)
[2018-02-20] MEDS: METOPROLOL TARTRATE 25 MG TABLET PO SCH (08:47)
[2018-02-20] MEDS: IRON SUCROSE COMPLEX 100MG/5ML IV SCH (08:47)
[2018-02-20] MEDS: AMLODIPINE 2.5 MG TABLET PO SCH (08:47)
[2018-02-20] MEDS: OMEPRAZOLE 20 MG CAPSULE.DR PO SCH (08:47)
[2018-02-20] MEDS: SENNA/DOCUSATE TABLET PO SCH (08:47)
[2018-02-20 10:27] VITALS: BP 156/109
[2018-02-20 12:19] VITALS: BP 157/84
[2018-02-20] MEDS: ACETAMINOPHEN 325 MG TABLET PO PRN (12:21)
[2018-02-20 12:40] VITALS: BP 157/84
[2018-02-20] MEDS ORDERED: TAMS-11 PO (14:54)
[2018-02-20] MEDS ORDERED: AMLO2.5T3 PO (14:54)
[2018-02-20] MEDS ORDERED: SENN1TAB8 PO (14:54)
[2018-02-20] MEDS ORDERED: METO25TA35 PO (14:54)
[2018-02-20] MEDS ORDERED: LAMO25TA PO (14:54)
[2018-02-20] MEDS ORDERED: ONDA4TAB13 PO (14:54)
[2018-02-20] MEDS ORDERED: TACR1CAP4 PO (14:54)
[2018-02-20] MEDS ORDERED: MYCO500T3 PO (14:54)
[2018-02-20] MEDS ORDERED: PRED5TAB PO (14:54)
[2018-02-20] MEDS ORDERED: ACET325T14 PO (14:54)
[2018-02-20] MEDS ORDERED: FERR325T18 PO (15:00)
[2018-03-23] MEDS ORDERED: HYDR-3342 PO (11:48)
[2018-03-23] MEDS ORDERED: TACR1CAP4 PO ×2 (11:48)
== END 2018-02-20 16:38 | DRG 871 ==
LOC: ED 11:48 → EDIP 13:43 → 4WST 15:44 → 5SO 02-12 10:16
PROVIDERS: ADMIT Internal Medicine; ATTEND Internal Medicine
DX: A41.9 Sepsis, unspecified organism (principal); J18.1 Lobar pneumonia, unspecified organism; N17.9 Acute kidney failure, unspecified; Z94.0 Kidney transplant status; K50.90 Crohn's disease, unspecified, without complications; C95.90 Leukemia, unspecified not having achieved remission; I24.8 Other forms of acute ischemic heart disease; N13.30 Unspecified hydronephrosis; E86.0 Dehydration; S20.212A Contusion of left front wall of thorax, initial encounter; W18.39XA Other fall on same level, initial encounter; Y93.89 Activity, other specified; Y92.89 Other specified places as the place of occurrence of the external cause; Y99.8 Other external cause status; C44.329 Squamous cell carcinoma of skin of other parts of face; D46.9 Myelodysplastic syndrome, unspecified; D50.9 Iron deficiency anemia, unspecified; D53.9 Nutritional anemia, unspecified; D63.1 Anemia in chronic kidney disease; E78.5 Hyperlipidemia, unspecified; E87.5 Hyperkalemia; E87.6 Hypokalemia; I12.9 Hypertensive chronic kidney disease with stage 1 through stage 4 chronic kidney disease, or unspecified chronic kidney disease; I48.2 Chronic atrial fibrillation; I73.9 Peripheral vascular disease, unspecified; K21.9 Gastro-esophageal reflux disease without esophagitis; N18.3 Chronic kidney disease, stage 3 (moderate); N32.0 Bladder-neck obstruction; N40.1 Benign prostatic hyperplasia with lower urinary tract symptoms; R62.7 Adult failure to thrive; Z51.5 Encounter for palliative care; Z66 Do not resuscitate; Z86.718 Personal history of other venous thrombosis and embolism; Z86.73 Personal history of transient ischemic attack (TIA), and cerebral infarction without residual deficits; Z87.440 Personal history of urinary (tract) infections; Z92.21 Personal history of antineoplastic chemotherapy; Z96.652 Presence of left artificial knee joint; Z90.49 Acquired absence of other specified parts of digestive tract; Z79.899 Other long term (current) drug therapy
CPT/HCPCS: 36415; 70450; 70553; 71045; 71250; 74176; 76700; 76770; 80048; 80053; 80069; 80074; 80197; 81001; 82378; 82550; 82553; 82607; 82746; 82962; 83036; 83540; 83550; 83735; 84100; 84484; 85014; 85018; 85025; 85651; 86140; 86301; 86480; 86738; 87015; 87040; 87070; 87081; 87116; 87205; 87206; 87633; 90656; 93005; 94640; 96361; 96374; 99285; A9585; G0378; J0295; J1756; J2020; J2185; J2405; J7507; J7613; Q0162; 92523-GN; J2270; J3475; J7030; J7120; J7512; J7517

== ENCOUNTER 2018-02-26 10:32 | Inpatient (IN) | payer MEDICARE ==
[~2018-02-26] VITALS: Ht 180.3 cm; Wt 74.7 kg
[~2018-02-26 10:32] MED LIST changes: +AMLO2.5T3 PO; +FERR325T18 PO; +HYDR500C3 PO; +LAMO25TA PO; +LAMO25TB7 PO; +PROP10DR2 OT; +SENN1TAB8 PO; +VENL150T PO
[2018-02-26 11:05] LABS: MEAN CORPUSCULAR HEMOGLOBIN 32.9 pg (27.5-34.5); MEAN CORPUSCULAR HGB CONC 32.5 g/dL (33.2-36.2); MEAN CORPUSCULAR VOLUME 101.2 fL (81-97); MEAN PLATELET VOLUME 9.8 fL (7.4-10.4); PLATELET COUNT 458 x10^3/uL (130-400); RED BLOOD COUNT 4.29 x10^6/uL (4.38-5.82); RED CELL DISTRIBUTION WIDTH 17.2 % (9.4-14.8)
[2018-02-26 11:17] LABS: ALBUMIN 2.9 g/dL (3.4-5.0); ANION GAP 10 mmol/L (5-15); CALCIUM 9.5 mg/dL (8.5-10.1); CHLORIDE 99 mmol/L (98-107); CREATININE 3.19 mg/dL (0.7-1.3)
[2018-02-26 11:51] LABS: BASOPHILS % (AUTO) 0 % (0-1); EOSINOPHILS # (AUTO) 0.03 x10^3/uL (0-0.4); EOSINOPHILS % (AUTO) 0 % (1-7); LYMPHOCYTES % (AUTO) 8 % (22-44); MD SCAN; MONOCYTES % (AUTO) 5 % (2-9); NEUTROPHILS % (AUTO) 87 % (42-75)
[2018-02-26] MEDS ORDERED: LIDOCAINE 2% VISCOUS, 100ML MM ONE (12:00)
[2018-02-26] MEDS ORDERED: LIDOCAINE JELLY 2%, 30GM TP ONE (12:30)
[2018-02-26] MEDS ORDERED: SODIUM CHLORIDE 0.9% 1,000ML IVBOLUS ONE (13:00)
[2018-02-26] MEDS ORDERED: [UNRECOGNIZED DRUG - OTHER] (13:33)
[2018-02-26] MEDS ORDERED: VENL150C6 PO (13:33)
[2018-02-26] MEDS: HEPARIN 5,000 UNITS/ML, 1ML SQ SCH ×2 (14:00→22:00)
[2018-02-26] MEDS ORDERED: PROMETHAZINE 25MG TABLET PO PRN (14:30)
[2018-02-26] MEDS ORDERED: TEMPLATE NON-FORMULARY MED. (Venlafaxine Hcl** (Venlafaxine Hcl Er**) 150 MG) PO SCH (14:30)
[2018-02-26] MEDS: FERROUS SULFATE 325 MG TABLET PO SCH ×2 (18:03→18:05)
[2018-02-26 19:40] VITALS: BP 149/82
[2018-02-26] MEDS: ONDANSETRON ODT 4 MG PO PRN (19:54)
[2018-02-26] MEDS: TACROLIMUS 1 MG CAPSULE PO SCH (19:56)
[2018-02-26] MEDS: METOPROLOL TARTRATE 25 MG TABLET PO SCH (19:56)
[2018-02-26 21:15] VITALS: BP 157/83
[2018-02-26 22:35] VITALS: BP 129/81
[2018-02-26 23:18] LABS: CULTURE INDICATED? YES; MICROSCOPIC INDICATED
[2018-02-27 00:39] LABS: CREATININE,URINE RANDOM 59.8 mg/dL
[2018-02-27 01:36] VITALS: BP 134/82
[2018-02-27 05:07] LABS: MEAN CORPUSCULAR HEMOGLOBIN 33.2 pg (27.5-34.5); MEAN CORPUSCULAR HGB CONC 32.8 g/dL (33.2-36.2); PLATELET COUNT 393 x10^3/uL (130-400); RED BLOOD COUNT 3.72 x10^6/uL (4.38-5.82); RED CELL DISTRIBUTION WIDTH 16.7 % (9.4-14.8)
[2018-02-27 05:12] LABS: ALBUMIN 2.5 g/dL (3.4-5.0); ANION GAP 13 mmol/L (5-15); CALCIUM 9.2 mg/dL (8.5-10.1); CHLORIDE 100 mmol/L (98-107)
[2018-02-27 05:17] LABS: ALANINE AMINOTRANSFERASE 46 U/L (12-78); ALKALINE PHOSPHATASE 91 U/L (45-117); BILIRUBIN,TOTAL 2.8 mg/dL (0.2-1.0); CREATININE 4.23 mg/dL (0.7-1.3); TOTAL PROTEIN 6.6 g/dL (6.4-8.2)
[2018-02-27 05:30] LABS: MD YES
[2018-02-27 05:32] LABS: ANISOCYTOSIS 1+; BAND#(MANUAL) 1.55 x10^3/uL; BANDS%(MANUAL) 4 % (0-7); HYPOCHROMIA 1+; LYMPH#(MANUAL) 0.78 x10^3/uL (1-3.4); LYMPHS% (MANUAL) 2 % (22-44); MONOS#(MANUAL) 1.55 x10^3/uL (0.3-2.7); MONOS% (MANUAL) 4 % (2-9); MYELOCYTES# (MANUAL) 0.39 x10^3/uL (0-0); MYELOCYTES% (MANUAL) 1 % (0-0); POLYCHROMASIA 1+; SEG#(MANUAL) 34.53 x10^3/uL (1.8-6.8); SEGS% (MANUAL) 89 % (42-75)
[2018-02-27 05:33] LABS: <PLATELET ESTIMATE> ADEQUATE; GIANT PLATELETS 1+; LARGE PLATELETS 2+
[2018-02-27] MEDS: ACETAMINOPHEN 325 MG TABLET PO PRN (05:58)
[2018-02-27] MEDS: HEPARIN 5,000 UNITS/ML, 1ML SQ SCH ×3 (05:58→21:24)
[2018-02-27 07:45] VITALS: BP 144/88
[2018-02-27] MEDS: VENLAFAXINE 75 MG CAP ER PO SCH (08:51)
[2018-02-27] MEDS: FERROUS SULFATE 325 MG TABLET PO SCH ×2 (08:52→17:05)
[2018-02-27] MEDS: TAMSULOSIN 0.4 MG CAP.ER.24H PO SCH (08:52)
[2018-02-27] MEDS: METOPROLOL TARTRATE 25 MG TABLET PO SCH ×2 (08:52→20:51)
[2018-02-27] MEDS: SENNA/DOCUSATE TABLET PO SCH (08:53)
[2018-02-27] MEDS: OMEPRAZOLE 20 MG CAPSULE.DR PO SCH (08:53)
[2018-02-27] MEDS: TACROLIMUS 1 MG CAPSULE PO SCH ×2 (08:53→20:52)
[2018-02-27] MEDS: AMLODIPINE 2.5 MG TABLET PO SCH (08:53)
[2018-02-27] MEDS ORDERED: CEFTRIAXONE 1,000 MG in SODIUM CHLORIDE 0.9% 50 ML IV ONE (09:30)
[2018-02-27] MEDS: LACTATED RINGERS 1,000 ML IV SCH ×2 (10:58→19:30)
[2018-02-27 13:10] VITALS: BP 149/87
[2018-02-27] MEDS ORDERED: PIPERACILLIN/TAZO 2.25 GM in SODIUM CHLORIDE 0.9% 50 ML IV SCH (16:30)
[2018-02-27 19:43] VITALS: BP 115/75
[2018-02-27 19:57] LABS: CREATININE,URINE RANDOM 61.6 mg/dL
[2018-02-28 01:29] VITALS: BP 138/75
[2018-02-28] MEDS: LACTATED RINGERS 1,000 ML IV SCH (04:12)
[2018-02-28] MEDS: PIPERACILLIN/TAZO/PMX 2.25GM 50 ML IVPB SCH ×4 (04:12→22:58)
[2018-02-28] MEDS: HEPARIN 5,000 UNITS/ML, 1ML SQ SCH ×3 (05:39→22:59)
[2018-02-28 06:06] LABS: ALANINE AMINOTRANSFERASE 32 U/L (12-78); ALBUMIN 2.2 g/dL (3.4-5.0); ANION GAP 14 mmol/L (5-15); CALCIUM 8.5 mg/dL (8.5-10.1); CHLORIDE 99 mmol/L (98-107); CREATININE 5.47 mg/dL (0.7-1.3)
[2018-02-28 06:08] LABS: ALKALINE PHOSPHATASE 82 U/L (45-117); BILIRUBIN,TOTAL 1.2 mg/dL (0.2-1.0)
[2018-02-28 06:15] LABS: BASOPHILS # (AUTO) 0.01 x10^3/uL (0-0.1); BASOPHILS % (AUTO) 0 % (0-1); EOSINOPHILS # (AUTO) 0.01 x10^3/uL (0-0.4); EOSINOPHILS % (AUTO) 0 % (1-7); LYMPHOCYTES # (AUTO) 2.09 x10^3/uL (1-3.4); LYMPHOCYTES % (AUTO) 8 % (22-44); MD SCAN; MEAN CORPUSCULAR HEMOGLOBIN 32.2 pg (27.5-34.5); MEAN CORPUSCULAR HGB CONC 32.3 g/dL (33.2-36.2); MEAN CORPUSCULAR VOLUME 99.9 fL (81-97); MEAN PLATELET VOLUME 10.5 fL (7.4-10.4); MONOCYTES # (AUTO) 2.02 x10^3/uL (0.2-0.8); MONOCYTES % (AUTO) 7 % (2-9); NEUTROPHILS # (AUTO) 23.93 x10^3/uL (1.8-6.8); NEUTROPHILS % (AUTO) 85 % (42-75); PLATELET COUNT 324 x10^3/uL (130-400); RED BLOOD COUNT 3.26 x10^6/uL (4.38-5.82); RED CELL DISTRIBUTION WIDTH 16.6 % (9.4-14.8)
[2018-02-28 07:45] VITALS: BP 144/86
[2018-02-28] MEDS: FERROUS SULFATE 325 MG TABLET PO SCH ×2 (09:10→17:19)
[2018-02-28] MEDS: TAMSULOSIN 0.4 MG CAP.ER.24H PO SCH (09:11)
[2018-02-28] MEDS: VENLAFAXINE 75 MG CAP ER PO SCH (09:11)
[2018-02-28] MEDS: METOPROLOL TARTRATE 25 MG TABLET PO SCH ×2 (09:12→20:20)
[2018-02-28] MEDS: AMLODIPINE 2.5 MG TABLET PO SCH (09:12)
[2018-02-28] MEDS: OMEPRAZOLE 20 MG CAPSULE.DR PO SCH (09:13)
[2018-02-28] MEDS: TACROLIMUS 1 MG CAPSULE PO SCH ×2 (09:14→20:20)
[2018-02-28] MEDS: SENNA/DOCUSATE TABLET PO SCH (09:15)
[2018-02-28] MEDS: POTASSIUM CHLORIDE IV SCH ×2 (11:08→19:52)
[2018-02-28] MEDS: SODIUM BICARBONATE IV SCH ×2 (11:08→19:52)
[2018-02-28] MEDS: [UNRECOGNIZED DRUG - OTHER] IV SCH ×2 (11:08→19:52)
[2018-02-28] MEDS ORDERED: NALOXONE 1 MG/ML, 2ML ONE (15:07)
[2018-02-28] MEDS ORDERED: FLUMAZENIL 0.1 MG/1 ML, 5ML ONE (15:07)
[2018-02-28] MEDS ORDERED: FENTANYL PF 100 MCG/2ML ONE (15:07)
[2018-02-28] MEDS ORDERED: MIDAZOLAM 1 MG/ML, 5ML ONE (15:07)
[2018-02-28 18:15] VITALS: BP 116/66
[2018-03-01 01:35] VITALS: BP 127/65
[2018-03-01] MEDS: ACETAMINOPHEN 325 MG TABLET PO PRN ×3 (04:56→21:22)
[2018-03-01] MEDS: PIPERACILLIN/TAZO/PMX 2.25GM 50 ML IVPB SCH (04:57)
[2018-03-01] MEDS: HEPARIN 5,000 UNITS/ML, 1ML SQ SCH ×3 (04:57→21:23)
[2018-03-01 05:30] LABS: ALANINE AMINOTRANSFERASE 29 U/L (12-78); ALBUMIN 1.9 g/dL (3.4-5.0); ANION GAP 15 mmol/L (5-15); CALCIUM 8.6 mg/dL (8.5-10.1); CHLORIDE 100 mmol/L (98-107); CREATININE 6.05 mg/dL (0.7-1.3)
[2018-03-01 05:32] LABS: ALKALINE PHOSPHATASE 77 U/L (45-117); BILIRUBIN,TOTAL 1.1 mg/dL (0.2-1.0); TOTAL PROTEIN 5.8 g/dL (6.4-8.2)
[2018-03-01 05:45] LABS: MEAN CORPUSCULAR HEMOGLOBIN 32.5 pg (27.5-34.5); MEAN CORPUSCULAR HGB CONC 32.8 g/dL (33.2-36.2); MEAN CORPUSCULAR VOLUME 98.9 fL (81-97); PLATELET COUNT 339 x10^3/uL (130-400); RED BLOOD COUNT 3.06 x10^6/uL (4.38-5.82); RED CELL DISTRIBUTION WIDTH 15.9 % (9.4-14.8)
[2018-03-01 06:27] LABS: MD YES
[2018-03-01 06:31] LABS: BAND#(MANUAL) 1.54 x10^3/uL; BANDS%(MANUAL) 8 % (0-7); LYMPH#(MANUAL) 1.54 x10^3/uL (1-3.4); LYMPHS% (MANUAL) 8 % (22-44); METAMYELOCYTES# (MANUAL) 0.19 x10^3/uL (0-0); METAMYELOCYTES% (MANUAL) 1 % (0-1); MONOS#(MANUAL) 0.77 x10^3/uL (0.3-2.7); MONOS% (MANUAL) 4 % (2-9); SEG#(MANUAL) 15.25 x10^3/uL (1.8-6.8); SEGS% (MANUAL) 79 % (42-75)
[2018-03-01 06:32] LABS: ANISOCYTOSIS 1+
[2018-03-01 06:33] LABS: <PLATELET ESTIMATE> ADEQUATE; <PLT MORPHOLOGY> NORMAL PLT MORPH; GIANT PLATELETS 1+; LARGE PLATELETS 1+; POLYCHROMASIA 1+
[2018-03-01 06:34] LABS: TOXIC GRAN 1+
[2018-03-01] MEDS: TACROLIMUS 1 MG CAPSULE PO SCH ×2 (09:00→21:22)
[2018-03-01] MEDS: SENNA/DOCUSATE TABLET PO SCH (09:00)
[2018-03-01 09:14] VITALS: BP 133/81
[2018-03-01] MEDS: OMEPRAZOLE 20 MG CAPSULE.DR PO SCH (09:34)
[2018-03-01] MEDS: FERROUS SULFATE 325 MG TABLET PO SCH ×2 (09:35→18:00)
[2018-03-01] MEDS: METOPROLOL TARTRATE 25 MG TABLET PO SCH ×2 (09:35→21:23)
[2018-03-01] MEDS: VENLAFAXINE 75 MG CAP ER PO SCH (09:35)
[2018-03-01] MEDS: TAMSULOSIN 0.4 MG CAP.ER.24H PO SCH (09:36)
[2018-03-01] MEDS: AMLODIPINE 2.5 MG TABLET PO SCH (09:36)
[2018-03-01] MEDS: POTASSIUM CHLORIDE IV SCH ×2 (11:23→23:49)
[2018-03-01] MEDS: DEXTROSE 5% IV SCH ×2 (11:23→23:49)
[2018-03-01] MEDS: SODIUM BICARBONATE IV SCH ×2 (11:23→23:49)
[2018-03-01] MEDS: PIPERACILLIN/TAZO 2.25 GM in SODIUM CHLORIDE 0.9% 50 ML IV SCH ×2 (11:30→19:57)
[2018-03-01 14:06] VITALS: BP 139/89
[2018-03-01 21:58] VITALS: BP 154/94
[2018-03-02 01:27] VITALS: BP 150/90
[2018-03-02] MEDS: PIPERACILLIN/TAZO 2.25 GM in SODIUM CHLORIDE 0.9% 50 ML IV SCH ×2 (03:40→11:49)
[2018-03-02] MEDS: HEPARIN 5,000 UNITS/ML, 1ML SQ SCH ×3 (05:51→21:19)
[2018-03-02 06:07] LABS: ALBUMIN 2.1 g/dL (3.4-5.0); ANION GAP 11 mmol/L (5-15); CHLORIDE 100 mmol/L (98-107)
[2018-03-02 06:13] LABS: ALANINE AMINOTRANSFERASE 35 U/L (12-78); ALKALINE PHOSPHATASE 80 U/L (45-117); BILIRUBIN,TOTAL 0.9 mg/dL (0.2-1.0); CREATININE 5.86 mg/dL (0.7-1.3); TOTAL PROTEIN 6.1 g/dL (6.4-8.2)
[2018-03-02 06:39] LABS: MD YES
[2018-03-02 06:40] LABS: MEAN CORPUSCULAR HEMOGLOBIN 32.5 pg (27.5-34.5); MEAN CORPUSCULAR HGB CONC 32.8 g/dL (33.2-36.2); MEAN PLATELET VOLUME 11.9 fL (7.4-10.4); PLATELET COUNT 317 x10^3/uL (130-400); RED BLOOD COUNT 3.18 x10^6/uL (4.38-5.82); RED CELL DISTRIBUTION WIDTH 16.7 % (9.4-14.8)
[2018-03-02 06:43] LABS: ANISOCYTOSIS 1+; BAND#(MANUAL) 0.51 x10^3/uL; BANDS%(MANUAL) 3 % (0-7); LYMPHS% (MANUAL) 10 % (22-44); MONOS#(MANUAL) 0.68 x10^3/uL (0.3-2.7); MONOS% (MANUAL) 4 % (2-9); SEG#(MANUAL) 14.11 x10^3/uL (1.8-6.8); SEGS% (MANUAL) 83 % (42-75)
[2018-03-02 06:44] LABS: <PLATELET ESTIMATE> ADEQUATE; LARGE PLATELETS 1+; POLYCHROMASIA 1+
[2018-03-02 07:10] VITALS: BP 158/100
[2018-03-02] MEDS ORDERED: AMLODIPINE 2.5 MG TABLET PO ONE (08:00)
[2018-03-02] MEDS: FERROUS SULFATE 325 MG TABLET PO SCH ×2 (08:19→16:33)
[2018-03-02] MEDS: OMEPRAZOLE 20 MG CAPSULE.DR PO SCH (08:19)
[2018-03-02] MEDS: VENLAFAXINE 75 MG CAP ER PO SCH (08:19)
[2018-03-02] MEDS: METOPROLOL TARTRATE 25 MG TABLET PO SCH ×2 (08:20→18:58)
[2018-03-02] MEDS: TACROLIMUS 1 MG CAPSULE PO SCH ×3 (08:20→21:11)
[2018-03-02] MEDS: SENNA/DOCUSATE TABLET PO SCH (08:20)
[2018-03-02] MEDS: TAMSULOSIN 0.4 MG CAP.ER.24H PO SCH (08:20)
[2018-03-02] MEDS: [UNRECOGNIZED DRUG - OTHER] IV SCH ×2 (08:21→16:34)
[2018-03-02] MEDS: POTASSIUM CHLORIDE IV SCH ×2 (08:21→16:34)
[2018-03-02] MEDS: SODIUM BICARBONATE IV SCH ×2 (08:21→16:34)
[2018-03-02] MEDS ORDERED: TACROLIMUS 1 MG CAPSULE ONE (09:00)
[2018-03-02 12:21] VITALS: BP 152/102
[2018-03-02] MEDS: ACETAMINOPHEN 325 MG TABLET PO PRN ×2 (14:22→21:11)
[2018-03-02] MEDS ORDERED: [UNRECOGNIZED DRUG - MIXTURE] IVPB SCH (15:00)
[2018-03-02 15:33] VITALS: BP 154/94
[2018-03-02] MEDS ORDERED: AMLODIPINE 5 MG TABLET PO SCH (18:00)
[2018-03-02] MEDS: [UNRECOGNIZED DRUG - MIXTURE] IVPB SCH (19:32)
[2018-03-02 19:36] VITALS: BP 157/100
[2018-03-02 21:14] VITALS: BP 159/88
[2018-03-03 03:15] VITALS: BP 147/93
[2018-03-03] MEDS: [UNRECOGNIZED DRUG - MIXTURE] IVPB SCH ×3 (03:44→20:59)
[2018-03-03 05:15] LABS: ALBUMIN 2.1 g/dL (3.4-5.0); ANION GAP 13 mmol/L (5-15); CALCIUM 9.1 mg/dL (8.5-10.1); CHLORIDE 101 mmol/L (98-107)
[2018-03-03 05:19] LABS: ALANINE AMINOTRANSFERASE 38 U/L (12-78); ALKALINE PHOSPHATASE 77 U/L (45-117); BILIRUBIN,TOTAL 0.9 mg/dL (0.2-1.0); CREATININE 5.46 mg/dL (0.7-1.3); TOTAL PROTEIN 6.3 g/dL (6.4-8.2)
[2018-03-03] MEDS: HEPARIN 5,000 UNITS/ML, 1ML SQ SCH ×2 (05:56→16:07)
[2018-03-03 06:46] VITALS: BP 162/93
[2018-03-03 07:05] LABS: BASOPHILS # (AUTO) 0.02 x10^3/uL (0-0.1); BASOPHILS % (AUTO) 0 % (0-1); EOSINOPHILS # (AUTO) 0.04 x10^3/uL (0-0.4); EOSINOPHILS % (AUTO) 0 % (1-7); LYMPHOCYTES # (AUTO) 1.63 x10^3/uL (1-3.4); LYMPHOCYTES % (AUTO) 12 % (22-44); MD SCAN; MEAN CORPUSCULAR HEMOGLOBIN 32.1 pg (27.5-34.5); MEAN CORPUSCULAR HGB CONC 32.3 g/dL (33.2-36.2); MEAN CORPUSCULAR VOLUME 99.4 fL (81-97); MEAN PLATELET VOLUME 11.8 fL (7.4-10.4); MONOCYTES # (AUTO) 0.94 x10^3/uL (0.2-0.8); MONOCYTES % (AUTO) 7 % (2-9); NEUTROPHILS # (AUTO) 10.81 x10^3/uL (1.8-6.8); NEUTROPHILS % (AUTO) 80 % (42-75); PLATELET COUNT 399 x10^3/uL (130-400); RED CELL DISTRIBUTION WIDTH 16.8 % (9.4-14.8)
[2018-03-03] MEDS: OMEPRAZOLE 20 MG CAPSULE.DR PO SCH (08:59)
[2018-03-03] MEDS: TACROLIMUS 1 MG CAPSULE PO SCH ×2 (08:59→20:58)
[2018-03-03] MEDS: SENNA/DOCUSATE TABLET PO SCH (09:00)
[2018-03-03] MEDS: TAMSULOSIN 0.4 MG CAP.ER.24H PO SCH (09:00)
[2018-03-03] MEDS: AMLODIPINE 5 MG TABLET PO SCH (09:01)
[2018-03-03] MEDS: FERROUS SULFATE 325 MG TABLET PO SCH ×2 (09:02→16:07)
[2018-03-03] MEDS: VENLAFAXINE 75 MG CAP ER PO SCH (09:02)
[2018-03-03] MEDS: METOPROLOL TARTRATE 25 MG TABLET PO SCH (09:02)
[2018-03-03 12:06] VITALS: BP 132/81
[2018-03-03] MEDS: ONDANSETRON ODT 4 MG PO PRN (17:12)
[2018-03-03 19:24] VITALS: BP 134/78
[2018-03-03] MEDS: METOPROLOL TARTRATE 50 MG TABLET PO SCH (20:58)
[2018-03-03] MEDS: ACETAMINOPHEN 325 MG TABLET PO PRN (20:58)
[2018-03-04] MEDS: HEPARIN 5,000 UNITS/ML, 1ML SQ SCH ×4 (00:13→22:00)
[2018-03-04 02:04] VITALS: BP 148/81
[2018-03-04] MEDS: [UNRECOGNIZED DRUG - MIXTURE] IVPB SCH ×3 (04:28→21:53)
[2018-03-04 05:05] LABS: MEAN CORPUSCULAR HEMOGLOBIN 32.4 pg (27.5-34.5); MEAN CORPUSCULAR HGB CONC 32.5 g/dL (33.2-36.2); MEAN CORPUSCULAR VOLUME 99.9 fL (81-97); MEAN PLATELET VOLUME 11.7 fL (7.4-10.4); PLATELET COUNT 476 x10^3/uL (130-400); RED BLOOD COUNT 3.69 x10^6/uL (4.38-5.82); RED CELL DISTRIBUTION WIDTH 16.7 % (9.4-14.8)
[2018-03-04 05:08] LABS: ALANINE AMINOTRANSFERASE 41 U/L (12-78); ALBUMIN 2.4 g/dL (3.4-5.0); ANION GAP 8 mmol/L (5-15); CALCIUM 9.5 mg/dL (8.5-10.1); CHLORIDE 101 mmol/L (98-107)
[2018-03-04 05:11] LABS: ALKALINE PHOSPHATASE 80 U/L (45-117); BILIRUBIN,TOTAL 0.8 mg/dL (0.2-1.0); CREATININE 5.25 mg/dL (0.7-1.3)
[2018-03-04 05:54] LABS: BASOPHILS % (AUTO) 0 % (0-1); EOSINOPHILS # (AUTO) 0.08 x10^3/uL (0-0.4); EOSINOPHILS % (AUTO) 1 % (1-7); LYMPHOCYTES # (AUTO) 1.34 x10^3/uL (1-3.4); LYMPHOCYTES % (AUTO) 10 % (22-44); MONOCYTES # (AUTO) 1.07 x10^3/uL (0.2-0.8); MONOCYTES % (AUTO) 8 % (2-9); NEUTROPHILS # (AUTO) 11.36 x10^3/uL (1.8-6.8); NEUTROPHILS % (AUTO) 82 % (42-75)
[2018-03-04 05:58] LABS: MD SCAN
[2018-03-04 06:49] VITALS: BP 161/89
[2018-03-04] MEDS: SENNA/DOCUSATE TABLET PO SCH (09:00)
[2018-03-04] MEDS: FERROUS SULFATE 325 MG TABLET PO SCH ×2 (09:47→18:15)
[2018-03-04] MEDS: METOPROLOL TARTRATE 50 MG TABLET PO SCH ×2 (09:47→21:54)
[2018-03-04] MEDS: TAMSULOSIN 0.4 MG CAP.ER.24H PO SCH (09:47)
[2018-03-04] MEDS: OMEPRAZOLE 20 MG CAPSULE.DR PO SCH (09:48)
[2018-03-04] MEDS: VENLAFAXINE 75 MG CAP ER PO SCH (09:48)
[2018-03-04] MEDS: TACROLIMUS 1 MG CAPSULE PO SCH ×2 (09:48→21:53)
[2018-03-04] MEDS: AMLODIPINE 5 MG TABLET PO SCH (09:48)
[2018-03-04 12:22] VITALS: BP 113/66
[2018-03-04 18:54] VITALS: BP 144/87
[2018-03-04] MEDS: ACETAMINOPHEN 325 MG TABLET PO PRN (21:54)
[2018-03-05 01:52] VITALS: BP 124/76
[2018-03-05 05:24] LABS: MEAN CORPUSCULAR HEMOGLOBIN 32.4 pg (27.5-34.5); MEAN CORPUSCULAR HGB CONC 32.3 g/dL (33.2-36.2); MEAN CORPUSCULAR VOLUME 100.4 fL (81-97); MEAN PLATELET VOLUME 11.5 fL (7.4-10.4); PLATELET COUNT 495 x10^3/uL (130-400); RED BLOOD COUNT 3.92 x10^6/uL (4.38-5.82); RED CELL DISTRIBUTION WIDTH 16.8 % (9.4-14.8)
[2018-03-05 05:27] LABS: ALBUMIN 2.3 g/dL (3.4-5.0); ANION GAP 11 mmol/L (5-15); CALCIUM 9.3 mg/dL (8.5-10.1); CHLORIDE 100 mmol/L (98-107)
[2018-03-05 05:29] LABS: CREATININE 5.23 mg/dL (0.7-1.3)
[2018-03-05] MEDS: [UNRECOGNIZED DRUG - MIXTURE] IVPB SCH ×3 (05:36→22:00)
[2018-03-05 05:55] LABS: BASOPHILS # (AUTO) 0.02 x10^3/uL (0-0.1); BASOPHILS % (AUTO) 0 % (0-1); EOSINOPHILS # (AUTO) 0.19 x10^3/uL (0-0.4); EOSINOPHILS % (AUTO) 2 % (1-7); LYMPHOCYTES # (AUTO) 1.75 x10^3/uL (1-3.4); LYMPHOCYTES % (AUTO) 13 % (22-44); MD SCAN; MONOCYTES # (AUTO) 1.27 x10^3/uL (0.2-0.8); MONOCYTES % (AUTO) 10 % (2-9); NEUTROPHILS # (AUTO) 10.11 x10^3/uL (1.8-6.8); NEUTROPHILS % (AUTO) 76 % (42-75)
[2018-03-05 08:00] VITALS: BP 134/94
[2018-03-05] MEDS: HEPARIN 5,000 UNITS/ML, 1ML SQ SCH ×3 (08:00→19:52)
[2018-03-05] MEDS: OMEPRAZOLE 20 MG CAPSULE.DR PO SCH (08:47)
[2018-03-05] MEDS: TACROLIMUS 1 MG CAPSULE PO SCH ×2 (08:47→20:38)
[2018-03-05] MEDS: SENNA/DOCUSATE TABLET PO SCH (08:48)
[2018-03-05] MEDS: FERROUS SULFATE 325 MG TABLET PO SCH ×2 (08:48→18:31)
[2018-03-05] MEDS: TAMSULOSIN 0.4 MG CAP.ER.24H PO SCH (08:48)
[2018-03-05] MEDS: AMLODIPINE 5 MG TABLET PO SCH (08:48)
[2018-03-05] MEDS: METOPROLOL TARTRATE 50 MG TABLET PO SCH ×2 (08:48→20:39)
[2018-03-05] MEDS: VENLAFAXINE 75 MG CAP ER PO SCH (08:48)
[2018-03-05 12:13] VITALS: BP 141/99
[2018-03-05] MEDS: ACETAMINOPHEN 325 MG TABLET PO PRN (12:35)
[2018-03-05 19:38] VITALS: BP 123/71
[2018-03-06 00:12] VITALS: BP 153/66
[2018-03-06] MEDS: [UNRECOGNIZED DRUG - MIXTURE] IVPB SCH ×3 (05:22→22:40)
[2018-03-06 08:00] VITALS: BP 143/72
[2018-03-06] MEDS: HEPARIN 5,000 UNITS/ML, 1ML SQ SCH ×3 (08:00→19:17)
[2018-03-06] MEDS: METOPROLOL TARTRATE 50 MG TABLET PO SCH ×2 (08:51→21:07)
[2018-03-06] MEDS: FERROUS SULFATE 325 MG TABLET PO SCH ×2 (08:51→17:03)
[2018-03-06] MEDS: TACROLIMUS 1 MG CAPSULE PO SCH ×2 (08:52→21:07)
[2018-03-06] MEDS: OMEPRAZOLE 20 MG CAPSULE.DR PO SCH (08:52)
[2018-03-06] MEDS: TAMSULOSIN 0.4 MG CAP.ER.24H PO SCH (08:52)
[2018-03-06] MEDS: AMLODIPINE 5 MG TABLET PO SCH (08:52)
[2018-03-06] MEDS: VENLAFAXINE 75 MG CAP ER PO SCH (08:52)
[2018-03-06] MEDS: SENNA/DOCUSATE TABLET PO SCH (08:53)
[2018-03-06] MEDS: ACETAMINOPHEN 325 MG TABLET PO PRN (10:11)
[2018-03-06 11:04] LABS: ALBUMIN 2.5 g/dL (3.4-5.0); ANION GAP 12 mmol/L (5-15); CALCIUM 9.3 mg/dL (8.5-10.1); CHLORIDE 102 mmol/L (98-107)
[2018-03-06] MEDS: LACTOBACILLUS 1GM/ PACKET PO SCH ×3 (11:55→21:07)
[2018-03-06] MEDS: ONDANSETRON ODT 4 MG PO PRN (11:55)
[2018-03-06 14:30] VITALS: BP 135/80
[2018-03-06 19:29] VITALS: BP 127/82
[2018-03-07 05:01] VITALS: BP 138/85
[2018-03-07] MEDS: [UNRECOGNIZED DRUG - MIXTURE] IVPB SCH ×3 (05:24→22:47)
[2018-03-07] MEDS: HEPARIN 5,000 UNITS/ML, 1ML SQ SCH ×3 (08:00→20:32)
[2018-03-07 08:56] VITALS: BP 123/84
[2018-03-07] MEDS: SENNA/DOCUSATE TABLET PO SCH (09:00)
[2018-03-07 09:24] LABS: ALBUMIN 2.7 g/dL (3.4-5.0); ANION GAP 11 mmol/L (5-15); CALCIUM 9.4 mg/dL (8.5-10.1); CHLORIDE 102 mmol/L (98-107); CREATININE 4.74 mg/dL (0.7-1.3)
[2018-03-07] MEDS: OMEPRAZOLE 20 MG CAPSULE.DR PO SCH (09:37)
[2018-03-07] MEDS: TACROLIMUS 1 MG CAPSULE PO SCH ×2 (09:37→20:35)
[2018-03-07] MEDS: LACTOBACILLUS 1GM/ PACKET PO SCH ×3 (09:37→20:35)
[2018-03-07] MEDS: AMLODIPINE 5 MG TABLET PO SCH (09:37)
[2018-03-07] MEDS: METOPROLOL TARTRATE 50 MG TABLET PO SCH ×2 (09:38→20:35)
[2018-03-07] MEDS: FERROUS SULFATE 325 MG TABLET PO SCH ×2 (09:38→17:28)
[2018-03-07] MEDS: TAMSULOSIN 0.4 MG CAP.ER.24H PO SCH (09:38)
[2018-03-07] MEDS: VENLAFAXINE 75 MG CAP ER PO SCH (09:38)
[2018-03-07] MEDS: ONDANSETRON ODT 4 MG PO PRN (15:23)
[2018-03-07 15:58] VITALS: BP 126/80
[2018-03-07] MEDS: ACETAMINOPHEN 325 MG TABLET PO PRN (18:26)
[2018-03-07 19:53] VITALS: BP 130/72
[2018-03-07] MEDS ORDERED: TEMAZEPAM 15 MG CAPSULE PO PRN (21:30)
[2018-03-08 07:00] VITALS: BP 134/87
[2018-03-08] MEDS: HEPARIN 5,000 UNITS/ML, 1ML SQ SCH ×3 (08:00→22:59)
[2018-03-08] MEDS: SENNA/DOCUSATE TABLET PO SCH (09:00)
[2018-03-08] MEDS: [UNRECOGNIZED DRUG - MIXTURE] IVPB SCH ×3 (09:26→23:22)
[2018-03-08 09:27] VITALS: BP 122/73
[2018-03-08] MEDS: FERROUS SULFATE 325 MG TABLET PO SCH ×2 (09:28→17:38)
[2018-03-08] MEDS: TACROLIMUS 1 MG CAPSULE PO SCH ×2 (09:28→21:28)
[2018-03-08] MEDS: VENLAFAXINE 75 MG CAP ER PO SCH (09:28)
[2018-03-08] MEDS: AMLODIPINE 5 MG TABLET PO SCH (09:28)
[2018-03-08] MEDS: OMEPRAZOLE 20 MG CAPSULE.DR PO SCH (09:29)
[2018-03-08] MEDS: TAMSULOSIN 0.4 MG CAP.ER.24H PO SCH (09:29)
[2018-03-08] MEDS: METOPROLOL TARTRATE 50 MG TABLET PO SCH ×2 (09:29→21:28)
[2018-03-08] MEDS: LACTOBACILLUS 1GM/ PACKET PO SCH ×3 (09:29→21:27)
[2018-03-08 09:44] LABS: ALBUMIN 2.7 g/dL (3.4-5.0); ANION GAP 11 mmol/L (5-15); CALCIUM 9.5 mg/dL (8.5-10.1); CHLORIDE 102 mmol/L (98-107)
[2018-03-08] MEDS ORDERED: MAGNESIUM SULFATE PMX 2GM/50ML 50 ML IV ONE (10:30)
[2018-03-08] MEDS: ONDANSETRON ODT 4 MG PO PRN (13:01)
[2018-03-08] MEDS: SODIUM CHLORIDE 0.9% 1,000 ML IV SCH (13:02)
[2018-03-08 13:50] VITALS: BP 115/72
[2018-03-08 19:22] VITALS: BP 123/74
[2018-03-08] MEDS: ACETAMINOPHEN 325 MG TABLET PO PRN (19:44)
[2018-03-09 06:40] VITALS: BP 166/91
[2018-03-09] MEDS: [UNRECOGNIZED DRUG - MIXTURE] IVPB SCH ×2 (06:41→16:59)
[2018-03-09] MEDS: AMLODIPINE 5 MG TABLET PO SCH (08:56)
[2018-03-09] MEDS: TAMSULOSIN 0.4 MG CAP.ER.24H PO SCH (08:56)
[2018-03-09] MEDS: TACROLIMUS 1 MG CAPSULE PO SCH ×2 (08:56→20:59)
[2018-03-09] MEDS: VENLAFAXINE 75 MG CAP ER PO SCH (08:57)
[2018-03-09] MEDS: OMEPRAZOLE 20 MG CAPSULE.DR PO SCH (08:57)
[2018-03-09] MEDS: METOPROLOL TARTRATE 50 MG TABLET PO SCH ×2 (08:57→21:00)
[2018-03-09] MEDS: FERROUS SULFATE 325 MG TABLET PO SCH ×2 (08:58→17:00)
[2018-03-09] MEDS: HEPARIN 5,000 UNITS/ML, 1ML SQ SCH ×2 (08:58→16:59)
[2018-03-09] MEDS: LACTOBACILLUS 1GM/ PACKET PO SCH ×3 (09:00→20:59)
[2018-03-09] MEDS: SENNA/DOCUSATE TABLET PO SCH (09:00)
[2018-03-09 09:54] LABS: MEAN CORPUSCULAR HEMOGLOBIN 32.6 pg (27.5-34.5); MEAN CORPUSCULAR HGB CONC 32.2 g/dL (33.2-36.2); MEAN CORPUSCULAR VOLUME 101.1 fL (81-97); MEAN PLATELET VOLUME 10.9 fL (7.4-10.4); PLATELET COUNT 638 x10^3/uL (130-400); RED BLOOD COUNT 4.25 x10^6/uL (4.38-5.82); RED CELL DISTRIBUTION WIDTH 17.3 % (9.4-14.8)
[2018-03-09 10:02] LABS: ALBUMIN 2.7 g/dL (3.4-5.0); CHLORIDE 103 mmol/L (98-107)
[2018-03-09 10:05] LABS: % IRON SATURATION 20 % (20-55); ALANINE AMINOTRANSFERASE 34 U/L (12-78); ALKALINE PHOSPHATASE 91 U/L (45-117); ANION GAP 13 mmol/L (5-15); BILIRUBIN,TOTAL 0.8 mg/dL (0.2-1.0); CALCIUM 9.2 mg/dL (8.5-10.1); CREATININE 4.72 mg/dL (0.7-1.3); IRON LEVEL 90 mcg/dL (65-175); TOTAL IRON BINDING CAPACITY 452 mcg/dL (250-450); TOTAL PROTEIN 8.1 g/dL (6.4-8.2)
[2018-03-09 10:26] LABS: BASOPHILS # (AUTO) 0.02 x10^3/uL (0-0.1); BASOPHILS % (AUTO) 0 % (0-1); EOSINOPHILS # (AUTO) 0.08 x10^3/uL (0-0.4); EOSINOPHILS % (AUTO) 1 % (1-7); LYMPHOCYTES # (AUTO) 1.68 x10^3/uL (1-3.4); LYMPHOCYTES % (AUTO) 11 % (22-44); MD SCAN; MONOCYTES # (AUTO) 0.56 x10^3/uL (0.2-0.8); MONOCYTES % (AUTO) 4 % (2-9); NEUTROPHILS # (AUTO) 12.92 x10^3/uL (1.8-6.8); NEUTROPHILS % (AUTO) 85 % (42-75)
[2018-03-09] MEDS: SODIUM CHLORIDE 0.9% 1,000 ML IV SCH (11:00)
[2018-03-09 12:45] VITALS: BP 127/73
[2018-03-09 19:03] VITALS: BP 121/76
[2018-03-09] MEDS: ACETAMINOPHEN 325 MG TABLET PO PRN (22:08)
[2018-03-10] MEDS: [UNRECOGNIZED DRUG - MIXTURE] IVPB SCH ×3 (01:01→18:00)
[2018-03-10 03:19] VITALS: BP 131/96
[2018-03-10 06:55] VITALS: BP 160/86
[2018-03-10 08:56] LABS: ALANINE AMINOTRANSFERASE 35 U/L (12-78); ALBUMIN 2.9 g/dL (3.4-5.0); ANION GAP 10 mmol/L (5-15); CALCIUM 9.9 mg/dL (8.5-10.1); CHLORIDE 104 mmol/L (98-107); CREATININE 4.19 mg/dL (0.7-1.3)
[2018-03-10 08:58] LABS: MD YES; MEAN PLATELET VOLUME 10.4 fL (7.4-10.4); PLATELET COUNT 736 x10^3/uL (130-400); RED BLOOD COUNT 4.13 x10^6/uL (4.38-5.82); RED CELL DISTRIBUTION WIDTH 17.3 % (9.4-14.8)
[2018-03-10 08:59] LABS: ALKALINE PHOSPHATASE 88 U/L (45-117); BILIRUBIN,TOTAL 0.7 mg/dL (0.2-1.0); TOTAL PROTEIN 8.2 g/dL (6.4-8.2)
[2018-03-10 09:00] LABS: BASOS#(MANUAL) 0.14 x10^3/uL (0-0.1); BASOS% (MANUAL) 1 % (0-1); LYMPH#(MANUAL) 1.13 x10^3/uL (1-3.4); LYMPHS% (MANUAL) 8 % (22-44); METAMYELOCYTES# (MANUAL) 0.14 x10^3/uL (0-0); METAMYELOCYTES% (MANUAL) 1 % (0-1); MONOS#(MANUAL) 1.13 x10^3/uL (0.3-2.7); MONOS% (MANUAL) 8 % (2-9); NRBC % (MANUAL) 1 % (0-1); SEG#(MANUAL) 11.56 x10^3/uL (1.8-6.8); SEGS% (MANUAL) 82 % (42-75)
[2018-03-10] MEDS: SENNA/DOCUSATE TABLET PO SCH (09:00)
[2018-03-10 09:01] LABS: <PLATELET ESTIMATE> INCREASED; ANISOCYTOSIS 1+; GIANT PLATELETS 1+; LARGE PLATELETS 1+
[2018-03-10] MEDS: LACTOBACILLUS 1GM/ PACKET PO SCH ×3 (10:14→22:12)
[2018-03-10] MEDS: VENLAFAXINE 75 MG CAP ER PO SCH (10:14)
[2018-03-10] MEDS: OMEPRAZOLE 20 MG CAPSULE.DR PO SCH (10:15)
[2018-03-10] MEDS: HEPARIN 5,000 UNITS/ML, 1ML SQ SCH ×3 (10:15→18:00)
[2018-03-10] MEDS: TAMSULOSIN 0.4 MG CAP.ER.24H PO SCH (10:15)
[2018-03-10] MEDS: METOPROLOL TARTRATE 50 MG TABLET PO SCH ×2 (10:16→20:21)
[2018-03-10] MEDS: AMLODIPINE 5 MG TABLET PO SCH (10:16)
[2018-03-10] MEDS: TACROLIMUS 1 MG CAPSULE PO SCH ×2 (10:16→20:20)
[2018-03-10] MEDS: FERROUS SULFATE 325 MG TABLET PO SCH ×2 (10:16→18:00)
[2018-03-10 14:45] VITALS: BP 114/75
[2018-03-10] MEDS: SODIUM CHLORIDE 0.9% 1,000 ML IV SCH (16:14)
[2018-03-10 19:14] VITALS: BP 141/82
[2018-03-10 19:31] LABS: CLOSTRIDIUM DIFFICILE ANTIGEN NEGATIVE; CLOSTRIDIUM DIFFICILE TOXIN NEGATIVE (Negative)
[2018-03-10] MEDS: ACETAMINOPHEN 325 MG TABLET PO PRN (20:20)
[2018-03-11] MEDS: HEPARIN 5,000 UNITS/ML, 1ML SQ SCH ×3 (01:17→15:44)
[2018-03-11] MEDS: [UNRECOGNIZED DRUG - MIXTURE] IVPB SCH ×3 (01:17→17:47)
[2018-03-11 01:27] VITALS: BP 156/83
[2018-03-11] MEDS: SODIUM CHLORIDE 0.9% 1,000 ML IV SCH ×2 (01:27→23:21)
[2018-03-11] MEDS: SENNA/DOCUSATE TABLET PO SCH (07:16)
[2018-03-11 08:38] VITALS: BP 159/91
[2018-03-11] MEDS: OMEPRAZOLE 20 MG CAPSULE.DR PO SCH (08:52)
[2018-03-11] MEDS: VENLAFAXINE 75 MG CAP ER PO SCH (08:52)
[2018-03-11] MEDS: TACROLIMUS 1 MG CAPSULE PO SCH ×2 (08:52→20:33)
[2018-03-11] MEDS: AMLODIPINE 5 MG TABLET PO SCH (08:52)
[2018-03-11] MEDS: FERROUS SULFATE 325 MG TABLET PO SCH ×2 (08:53→15:44)
[2018-03-11] MEDS: TAMSULOSIN 0.4 MG CAP.ER.24H PO SCH (08:53)
[2018-03-11] MEDS: METOPROLOL TARTRATE 50 MG TABLET PO SCH ×2 (08:53→20:33)
[2018-03-11] MEDS: LACTOBACILLUS 1GM/ PACKET PO SCH ×3 (08:53→20:33)
[2018-03-11 14:50] VITALS: BP 150/89
[2018-03-11] MEDS: ACETAMINOPHEN 325 MG TABLET PO PRN (15:44)
[2018-03-11] MEDS ORDERED: MORPHINE SULFATE 4 MG/ML, 1ML IVPush PRN (16:00)
[2018-03-11 19:18] VITALS: BP 147/79
[2018-03-12 01:16] VITALS: BP 138/72
[2018-03-12] MEDS: HEPARIN 5,000 UNITS/ML, 1ML SQ SCH ×3 (01:35→16:21)
[2018-03-12] MEDS: [UNRECOGNIZED DRUG - MIXTURE] IVPB SCH ×3 (01:35→17:31)
[2018-03-12 07:50] VITALS: BP 155/76
[2018-03-12 08:00] VITALS: BP 174/107
[2018-03-12] MEDS: AMLODIPINE 5 MG TABLET PO SCH (08:40)
[2018-03-12] MEDS: TACROLIMUS 1 MG CAPSULE PO SCH ×2 (08:40→21:34)
[2018-03-12] MEDS: OMEPRAZOLE 20 MG CAPSULE.DR PO SCH (08:41)
[2018-03-12] MEDS: FERROUS SULFATE 325 MG TABLET PO SCH ×2 (08:41→16:20)
[2018-03-12] MEDS: TAMSULOSIN 0.4 MG CAP.ER.24H PO SCH (08:41)
[2018-03-12] MEDS: VENLAFAXINE 75 MG CAP ER PO SCH (08:41)
[2018-03-12] MEDS: METOPROLOL TARTRATE 50 MG TABLET PO SCH ×2 (08:42→21:34)
[2018-03-12] MEDS: SENNA/DOCUSATE TABLET PO SCH (08:42)
[2018-03-12] MEDS: LACTOBACILLUS 1GM/ PACKET PO SCH ×3 (08:42→21:34)
[2018-03-12 09:50] VITALS: BP 155/94
[2018-03-12 10:52] LABS: ALANINE AMINOTRANSFERASE 33 U/L (12-78); ALBUMIN 2.8 g/dL (3.4-5.0); ANION GAP 9 mmol/L (5-15); CALCIUM 9.4 mg/dL (8.5-10.1); CHLORIDE 105 mmol/L (98-107); CREATININE 3.42 mg/dL (0.7-1.3)
[2018-03-12 10:54] LABS: ALKALINE PHOSPHATASE 91 U/L (45-117); BILIRUBIN,TOTAL 0.7 mg/dL (0.2-1.0); TOTAL PROTEIN 7.7 g/dL (6.4-8.2)
[2018-03-12 11:06] LABS: MEAN CORPUSCULAR HGB CONC 31.6 g/dL (33.2-36.2); MEAN CORPUSCULAR VOLUME 101.4 fL (81-97); MEAN PLATELET VOLUME 10.5 fL (7.4-10.4); PLATELET COUNT 742 x10^3/uL (130-400); RED BLOOD COUNT 4.21 x10^6/uL (4.38-5.82); RED CELL DISTRIBUTION WIDTH 16.9 % (9.4-14.8)
[2018-03-12 11:57] LABS: BASOPHILS % (AUTO) 1 % (0-1); EOSINOPHILS # (AUTO) 0.02 x10^3/uL (0-0.4); EOSINOPHILS % (AUTO) 0 % (1-7); LYMPHOCYTES # (AUTO) 0.91 x10^3/uL (1-3.4); LYMPHOCYTES % (AUTO) 7 % (22-44); MD SCAN; MONOCYTES # (AUTO) 1.03 x10^3/uL (0.2-0.8); MONOCYTES % (AUTO) 8 % (2-9); NEUTROPHILS # (AUTO) 10.26 x10^3/uL (1.8-6.8); NEUTROPHILS % (AUTO) 83 % (42-75)
[2018-03-12 14:48] VITALS: BP 119/82
[2018-03-12 20:24] VITALS: BP 134/78
[2018-03-12] MEDS: SODIUM CHLORIDE 0.9% 1,000 ML IV SCH (21:33)
[2018-03-12] MEDS: ACETAMINOPHEN 325 MG TABLET PO PRN (21:34)
[2018-03-13] MEDS ORDERED: ARTIFICIAL TEARS 15 DROP/ML BOTTLE EACHEYE PRN
[2018-03-13] MEDS: [UNRECOGNIZED DRUG - MIXTURE] IVPB SCH ×3 (01:14→16:52)
[2018-03-13] MEDS: HEPARIN 5,000 UNITS/ML, 1ML SQ SCH ×3 (01:16→16:00)
[2018-03-13 01:23] VITALS: BP 131/90
[2018-03-13 07:36] VITALS: BP 154/96
[2018-03-13] MEDS: SENNA/DOCUSATE TABLET PO SCH (09:00)
[2018-03-13] MEDS: VENLAFAXINE 75 MG CAP ER PO SCH (09:28)
[2018-03-13] MEDS: OMEPRAZOLE 20 MG CAPSULE.DR PO SCH (09:28)
[2018-03-13] MEDS: AMLODIPINE 5 MG TABLET PO SCH (09:28)
[2018-03-13] MEDS: FERROUS SULFATE 325 MG TABLET PO SCH ×2 (09:28→16:52)
[2018-03-13] MEDS: TACROLIMUS 1 MG CAPSULE PO SCH ×2 (09:28→22:16)
[2018-03-13] MEDS: LACTOBACILLUS 1GM/ PACKET PO SCH ×4 (09:28→22:16)
[2018-03-13] MEDS: TAMSULOSIN 0.4 MG CAP.ER.24H PO SCH (09:29)
[2018-03-13] MEDS: METOPROLOL TARTRATE 50 MG TABLET PO SCH ×2 (09:29→22:16)
[2018-03-13 10:08] LABS: ALANINE AMINOTRANSFERASE 34 U/L (12-78); ALBUMIN 2.7 g/dL (3.4-5.0); ANION GAP 9 mmol/L (5-15); CALCIUM 9.3 mg/dL (8.5-10.1); CHLORIDE 108 mmol/L (98-107); CREATININE 3.08 mg/dL (0.7-1.3)
[2018-03-13 10:10] LABS: ALKALINE PHOSPHATASE 85 U/L (45-117); BILIRUBIN,TOTAL 0.5 mg/dL (0.2-1.0); TOTAL PROTEIN 7.4 g/dL (6.4-8.2)
[2018-03-13 10:18] LABS: MD YES
[2018-03-13 10:19] LABS: MEAN CORPUSCULAR VOLUME 99.9 fL (81-97); MEAN PLATELET VOLUME 10.4 fL (7.4-10.4); PLATELET COUNT 769 x10^3/uL (130-400); RED BLOOD COUNT 4.09 x10^6/uL (4.38-5.82); RED CELL DISTRIBUTION WIDTH 16.7 % (9.4-14.8)
[2018-03-13 10:22] LABS: BAND#(MANUAL) 0.26 x10^3/uL; BANDS%(MANUAL) 2 % (0-7); LYMPH#(MANUAL) 1.92 x10^3/uL (1-3.4); LYMPHS% (MANUAL) 15 % (22-44); MONOS#(MANUAL) 0.26 x10^3/uL (0.3-2.7); MONOS% (MANUAL) 2 % (2-9); SEG#(MANUAL) 10.37 x10^3/uL (1.8-6.8); SEGS% (MANUAL) 81 % (42-75)
[2018-03-13 10:27] LABS: <PLATELET ESTIMATE> INCREASED; ANISOCYTOSIS 1+; GIANT PLATELETS 1+; LARGE PLATELETS 1+; POLYCHROMASIA 1+
[2018-03-13 12:58] VITALS: BP 146/86
[2018-03-13] MEDS: SODIUM CHLORIDE 0.9% 1,000 ML IV SCH (17:02)
[2018-03-13] MEDS: ACETAMINOPHEN 325 MG TABLET PO PRN (17:03)
[2018-03-13 20:40] VITALS: BP 128/85
[2018-03-14] MEDS: [UNRECOGNIZED DRUG - MIXTURE] IVPB SCH ×3 (01:06→16:50)
[2018-03-14 01:49] VITALS: BP 146/80
[2018-03-14 07:15] VITALS: BP 156/86
[2018-03-14] MEDS: SENNA/DOCUSATE TABLET PO SCH (09:00)
[2018-03-14] MEDS: TAMSULOSIN 0.4 MG CAP.ER.24H PO SCH (09:41)
[2018-03-14] MEDS: METOPROLOL TARTRATE 50 MG TABLET PO SCH ×2 (09:41→21:04)
[2018-03-14] MEDS: VENLAFAXINE 75 MG CAP ER PO SCH (09:41)
[2018-03-14] MEDS: AMLODIPINE 5 MG TABLET PO SCH (09:41)
[2018-03-14] MEDS: HEPARIN 5,000 UNITS/ML, 1ML SQ SCH ×3 (09:42→16:50)
[2018-03-14] MEDS: TACROLIMUS 1 MG CAPSULE PO SCH ×2 (09:42→21:03)
[2018-03-14] MEDS: OMEPRAZOLE 20 MG CAPSULE.DR PO SCH (09:42)
[2018-03-14] MEDS: FERROUS SULFATE 325 MG TABLET PO SCH ×2 (09:42→16:50)
[2018-03-14] MEDS: LACTOBACILLUS 1GM/ PACKET PO SCH ×3 (09:43→21:00)
[2018-03-14 11:21] LABS: ALBUMIN 2.6 g/dL (3.4-5.0); ANION GAP 12 mmol/L (5-15); CHLORIDE 106 mmol/L (98-107)
[2018-03-14 11:25] LABS: HCT (SEDRATE) 41.8 % (39.2-51.8)
[2018-03-14 11:26] LABS: ALANINE AMINOTRANSFERASE 34 U/L (12-78); ALKALINE PHOSPHATASE 79 U/L (45-117); BILIRUBIN,TOTAL 0.6 mg/dL (0.2-1.0); CREATININE 2.83 mg/dL (0.7-1.3); TOTAL PROTEIN 7.1 g/dL (6.4-8.2)
[2018-03-14 11:32] LABS: BASOPHILS # (AUTO) 0.23 x10^3/uL (0-0.1); BASOPHILS % (AUTO) 2 % (0-1); EOSINOPHILS # (AUTO) 0.15 x10^3/uL (0-0.4); EOSINOPHILS % (AUTO) 1 % (1-7); LYMPHOCYTES # (AUTO) 1.29 x10^3/uL (1-3.4); LYMPHOCYTES % (AUTO) 11 % (22-44); MD SCAN; MEAN CORPUSCULAR HEMOGLOBIN 31.2 pg (27.5-34.5); MEAN CORPUSCULAR HGB CONC 31.6 g/dL (33.2-36.2); MEAN CORPUSCULAR VOLUME 98.8 fL (81-97); MEAN PLATELET VOLUME 10.2 fL (7.4-10.4); MONOCYTES # (AUTO) 0.83 x10^3/uL (0.2-0.8); MONOCYTES % (AUTO) 7 % (2-9); NEUTROPHILS # (AUTO) 8.86 x10^3/uL (1.8-6.8); NEUTROPHILS % (AUTO) 78 % (42-75); PLATELET COUNT 509 x10^3/uL (130-400); RED BLOOD COUNT 4.23 x10^6/uL (4.38-5.82); RED CELL DISTRIBUTION WIDTH 16.8 % (9.4-14.8)
[2018-03-14 12:52] VITALS: BP 146/91
[2018-03-14 19:19] VITALS: BP 118/82
[2018-03-14 20:56] VITALS: BP 139/93
[2018-03-14] MEDS: ACETAMINOPHEN 325 MG TABLET PO PRN (21:00)
[2018-03-14] MEDS: SODIUM CHLORIDE 0.9% 1,000 ML IV SCH (21:02)
[2018-03-15 00:09] VITALS: BP 148/91
[2018-03-15] MEDS: HEPARIN 5,000 UNITS/ML, 1ML SQ SCH ×3 (01:32→17:15)
[2018-03-15] MEDS: [UNRECOGNIZED DRUG - MIXTURE] IVPB SCH ×3 (01:33→17:16)
[2018-03-15 08:00] VITALS: BP 132/84
[2018-03-15] MEDS: OMEPRAZOLE 20 MG CAPSULE.DR PO SCH (09:00)
[2018-03-15] MEDS: SENNA/DOCUSATE TABLET PO SCH (09:00)
[2018-03-15] MEDS: LACTOBACILLUS 1GM/ PACKET PO SCH ×3 (09:40→22:56)
[2018-03-15] MEDS: AMLODIPINE 5 MG TABLET PO SCH (09:40)
[2018-03-15] MEDS: TAMSULOSIN 0.4 MG CAP.ER.24H PO SCH (09:40)
[2018-03-15] MEDS: FERROUS SULFATE 325 MG TABLET PO SCH ×2 (09:42→17:16)
[2018-03-15] MEDS: VENLAFAXINE 75 MG CAP ER PO SCH (09:42)
[2018-03-15] MEDS: TACROLIMUS 1 MG CAPSULE PO SCH ×2 (09:42→22:55)
[2018-03-15] MEDS: METOPROLOL TARTRATE 50 MG TABLET PO SCH ×2 (09:42→22:55)
[2018-03-15 13:35] VITALS: BP 140/81
[2018-03-15] MEDS: SODIUM CHLORIDE 0.9% 1,000 ML IV SCH (17:00)
[2018-03-15 19:18] VITALS: BP 94/66
[2018-03-15] MEDS: ACETAMINOPHEN 325 MG TABLET PO PRN (20:03)
[2018-03-15 22:52] VITALS: BP 139/72
[2018-03-16 00:46] VITALS: BP 147/92
[2018-03-16] MEDS: [UNRECOGNIZED DRUG - MIXTURE] IVPB SCH ×2 (00:57→09:40)
[2018-03-16] MEDS: HEPARIN 5,000 UNITS/ML, 1ML SQ SCH ×4 (00:57→16:00)
[2018-03-16 08:16] VITALS: BP 160/90
[2018-03-16] MEDS: SENNA/DOCUSATE TABLET PO SCH (09:00)
[2018-03-16] MEDS: METOPROLOL TARTRATE 50 MG TABLET PO SCH ×2 (09:25→20:18)
[2018-03-16] MEDS: VENLAFAXINE 75 MG CAP ER PO SCH (09:25)
[2018-03-16] MEDS: TACROLIMUS 1 MG CAPSULE PO SCH ×2 (09:25→20:17)
[2018-03-16] MEDS: OMEPRAZOLE 20 MG CAPSULE.DR PO SCH (09:26)
[2018-03-16] MEDS: FERROUS SULFATE 325 MG TABLET PO SCH ×2 (09:26→17:19)
[2018-03-16] MEDS: LACTOBACILLUS 1GM/ PACKET PO SCH ×3 (09:27→20:18)
[2018-03-16] MEDS: TAMSULOSIN 0.4 MG CAP.ER.24H PO SCH (09:27)
[2018-03-16] MEDS: AMLODIPINE 5 MG TABLET PO SCH (09:27)
[2018-03-16 13:06] VITALS: BP 163/92
[2018-03-16] MEDS: SODIUM CHLORIDE 0.9% 1,000 ML IV SCH (15:30)
[2018-03-16] MEDS: PIPERACILLIN/TAZO/PMX 3.375GM 50 ML IV SCH (17:19)
[2018-03-16 18:50] VITALS: BP 125/85
[2018-03-17] MEDS: PIPERACILLIN/TAZO/PMX 3.375GM 50 ML IV SCH ×3 (01:00→17:14)
[2018-03-17 02:59] VITALS: BP 149/80
[2018-03-17 07:15] VITALS: BP 167/82
[2018-03-17] MEDS: HEPARIN 5,000 UNITS/ML, 1ML SQ SCH ×3 (08:00→16:00)
[2018-03-17] MEDS: SENNA/DOCUSATE TABLET PO SCH (09:00)
[2018-03-17] MEDS: OMEPRAZOLE 20 MG CAPSULE.DR PO SCH (09:00)
[2018-03-17 09:09] LABS: MEAN CORPUSCULAR HEMOGLOBIN 31.6 pg (27.5-34.5); MEAN CORPUSCULAR HGB CONC 31.3 g/dL (33.2-36.2); MEAN CORPUSCULAR VOLUME 100.8 fL (81-97); RED BLOOD COUNT 4.58 x10^6/uL (4.38-5.82); RED CELL DISTRIBUTION WIDTH 16.8 % (9.4-14.8)
[2018-03-17 09:18] LABS: ALANINE AMINOTRANSFERASE 41 U/L (12-78); ANION GAP 10 mmol/L (5-15); CALCIUM 9.4 mg/dL (8.5-10.1); CHLORIDE 110 mmol/L (98-107)
[2018-03-17 09:21] LABS: ALKALINE PHOSPHATASE 90 U/L (45-117); BILIRUBIN,TOTAL 0.7 mg/dL (0.2-1.0); CREATININE 2.39 mg/dL (0.7-1.3); TOTAL PROTEIN 7.9 g/dL (6.4-8.2)
[2018-03-17 09:30] LABS: BASOPHILS # (AUTO) 0.08 x10^3/uL (0-0.1); BASOPHILS % (AUTO) 1 % (0-1); EOSINOPHILS % (AUTO) 2 % (1-7); LYMPHOCYTES # (AUTO) 2.41 x10^3/uL (1-3.4); LYMPHOCYTES % (AUTO) 18 % (22-44); MD MORPH REVIEW ONLY; MONOCYTES # (AUTO) 1.17 x10^3/uL (0.2-0.8); MONOCYTES % (AUTO) 9 % (2-9); NEUTROPHILS # (AUTO) 9.53 x10^3/uL (1.8-6.8); NEUTROPHILS % (AUTO) 71 % (42-75)
[2018-03-17 09:31] LABS: ANISOCYTOSIS 1+
[2018-03-17 09:32] LABS: <PLATELET ESTIMATE> INCREASED; GIANT PLATELETS 1+; LARGE PLATELETS 1+; POLYCHROMASIA 1+
[2018-03-17 09:33] LABS: MEAN PLATELET VOLUME 10.4 fL (7.4-10.4); PLATELET COUNT 508 x10^3/uL (130-400)
[2018-03-17] MEDS: FERROUS SULFATE 325 MG TABLET PO SCH ×2 (09:33→17:14)
[2018-03-17] MEDS: VENLAFAXINE 75 MG CAP ER PO SCH (09:33)
[2018-03-17] MEDS: METOPROLOL TARTRATE 50 MG TABLET PO SCH ×2 (09:33→20:19)
[2018-03-17] MEDS: AMLODIPINE 5 MG TABLET PO SCH (09:34)
[2018-03-17] MEDS: TAMSULOSIN 0.4 MG CAP.ER.24H PO SCH (09:34)
[2018-03-17] MEDS: TACROLIMUS 1 MG CAPSULE PO SCH ×2 (09:34→20:19)
[2018-03-17] MEDS: LACTOBACILLUS 1GM/ PACKET PO SCH ×3 (09:34→20:19)
[2018-03-17 14:29] VITALS: BP 101/61
[2018-03-17] MEDS: ACETAMINOPHEN 325 MG TABLET PO PRN (16:13)
[2018-03-17 19:10] VITALS: BP 115/73
[2018-03-17 23:53] LABS: MICROSCOPIC INDICATED
[2018-03-18] MEDS: HEPARIN 5,000 UNITS/ML, 1ML SQ SCH ×3 (01:25→17:20)
[2018-03-18] MEDS: PIPERACILLIN/TAZO/PMX 3.375GM 50 ML IV SCH ×3 (01:25→17:26)
[2018-03-18 01:31] VITALS: BP 135/78
[2018-03-18 07:41] VITALS: BP 170/76
[2018-03-18] MEDS: SENNA/DOCUSATE TABLET PO SCH (09:00)
[2018-03-18] MEDS: VENLAFAXINE 75 MG CAP ER PO SCH (09:49)
[2018-03-18] MEDS: TAMSULOSIN 0.4 MG CAP.ER.24H PO SCH (09:49)
[2018-03-18] MEDS: TACROLIMUS 1 MG CAPSULE PO SCH ×2 (09:50→21:35)
[2018-03-18] MEDS: OMEPRAZOLE 20 MG CAPSULE.DR PO SCH (09:50)
[2018-03-18] MEDS: METOPROLOL TARTRATE 50 MG TABLET PO SCH ×2 (09:50→21:34)
[2018-03-18] MEDS: LACTOBACILLUS 1GM/ PACKET PO SCH ×3 (09:50→21:35)
[2018-03-18] MEDS: FERROUS SULFATE 325 MG TABLET PO SCH ×2 (09:50→17:21)
[2018-03-18] MEDS: AMLODIPINE 5 MG TABLET PO SCH (09:50)
[2018-03-18] MEDS: SODIUM CHLORIDE 0.9% 1,000 ML IV SCH (11:30)
[2018-03-18 13:20] VITALS: BP 151/72
[2018-03-18 20:00] VITALS: BP 137/80
[2018-03-19] MEDS: HEPARIN 5,000 UNITS/ML, 1ML SQ SCH ×3 (01:12→18:19)
[2018-03-19] MEDS: PIPERACILLIN/TAZO/PMX 3.375GM 50 ML IV SCH ×3 (01:12→18:18)
[2018-03-19 01:36] VITALS: BP 159/81
[2018-03-19 07:18] VITALS: BP 159/97
[2018-03-19 08:57] LABS: ANION GAP 11 mmol/L (5-15); CALCIUM 9.5 mg/dL (8.5-10.1); CHLORIDE 109 mmol/L (98-107)
[2018-03-19 08:58] LABS: MEAN CORPUSCULAR HEMOGLOBIN 31.7 pg (27.5-34.5); MEAN CORPUSCULAR VOLUME 99.2 fL (81-97); RED BLOOD COUNT 4.46 x10^6/uL (4.38-5.82); RED CELL DISTRIBUTION WIDTH 17.1 % (9.4-14.8)
[2018-03-19] MEDS: SENNA/DOCUSATE TABLET PO SCH (09:00)
[2018-03-19 09:09] LABS: BASOPHILS # (AUTO) 0.41 x10^3/uL (0-0.1); BASOPHILS % (AUTO) 3 % (0-1); EOSINOPHILS # (AUTO) 0.05 x10^3/uL (0-0.4); EOSINOPHILS % (AUTO) 0 % (1-7); LYMPHOCYTES # (AUTO) 2.62 x10^3/uL (1-3.4); LYMPHOCYTES % (AUTO) 19 % (22-44); MD SCAN; MEAN PLATELET VOLUME 10.8 fL (7.4-10.4); MONOCYTES # (AUTO) 0.57 x10^3/uL (0.2-0.8); MONOCYTES % (AUTO) 4 % (2-9); NEUTROPHILS # (AUTO) 9.81 x10^3/uL (1.8-6.8); NEUTROPHILS % (AUTO) 73 % (42-75); PLATELET COUNT 466 x10^3/uL (130-400)
[2018-03-19 10:30] VITALS: BP 127/77
[2018-03-19] MEDS: AMLODIPINE 5 MG TABLET PO SCH (10:46)
[2018-03-19] MEDS: FERROUS SULFATE 325 MG TABLET PO SCH ×2 (10:46→16:55)
[2018-03-19] MEDS: TACROLIMUS 1 MG CAPSULE PO SCH ×2 (10:47→21:02)
[2018-03-19] MEDS: VENLAFAXINE 75 MG CAP ER PO SCH (10:47)
[2018-03-19] MEDS: TAMSULOSIN 0.4 MG CAP.ER.24H PO SCH (10:47)
[2018-03-19] MEDS: LACTOBACILLUS 1GM/ PACKET PO SCH ×3 (10:48→21:01)
[2018-03-19] MEDS: METOPROLOL TARTRATE 50 MG TABLET PO SCH ×2 (10:50→21:02)
[2018-03-19] MEDS: OMEPRAZOLE 20 MG CAPSULE.DR PO SCH (10:50)
[2018-03-19 13:35] VITALS: BP 165/72
[2018-03-19 16:54] VITALS: BP 138/80
[2018-03-19 20:41] VITALS: BP 140/78
[2018-03-19] MEDS: ACETAMINOPHEN 325 MG TABLET PO PRN (22:49)
[2018-03-20 01:45] VITALS: BP 137/79
[2018-03-20] MEDS: HEPARIN 5,000 UNITS/ML, 1ML SQ SCH ×3 (03:01→17:28)
[2018-03-20] MEDS: PIPERACILLIN/TAZO/PMX 3.375GM 50 ML IV SCH ×3 (03:01→17:27)
[2018-03-20 07:51] VITALS: BP 163/101
[2018-03-20] MEDS: SENNA/DOCUSATE TABLET PO SCH (08:57)
[2018-03-20] MEDS: VENLAFAXINE 75 MG CAP ER PO SCH (09:13)
[2018-03-20] MEDS: OMEPRAZOLE 20 MG CAPSULE.DR PO SCH (09:13)
[2018-03-20] MEDS: TACROLIMUS 1 MG CAPSULE PO SCH ×2 (09:13→20:58)
[2018-03-20] MEDS: METOPROLOL TARTRATE 50 MG TABLET PO SCH ×2 (09:13→20:59)
[2018-03-20] MEDS: TAMSULOSIN 0.4 MG CAP.ER.24H PO SCH (09:13)
[2018-03-20] MEDS: LACTOBACILLUS 1GM/ PACKET PO SCH ×3 (09:14→20:58)
[2018-03-20] MEDS: FERROUS SULFATE 325 MG TABLET PO SCH ×2 (09:14→16:15)
[2018-03-20] MEDS: AMLODIPINE 5 MG TABLET PO SCH (09:14)
[2018-03-20 10:52] VITALS: BP 128/87
[2018-03-20] MEDS: SODIUM CHLORIDE 0.9% 1,000 ML IV SCH (10:56)
[2018-03-20 13:08] VITALS: BP 117/70
[2018-03-20 19:57] VITALS: BP 129/71
[2018-03-21 00:49] VITALS: BP 150/85
[2018-03-21] MEDS: ACETAMINOPHEN 325 MG TABLET PO PRN (01:00)
[2018-03-21] MEDS: HEPARIN 5,000 UNITS/ML, 1ML SQ SCH ×3 (02:32→17:59)
[2018-03-21] MEDS: PIPERACILLIN/TAZO/PMX 3.375GM 50 ML IV SCH ×3 (02:33→17:58)
[2018-03-21] MEDS: SODIUM CHLORIDE 0.9% 1,000 ML IV SCH (06:03)
[2018-03-21 08:31] VITALS: BP 151/95
[2018-03-21] MEDS: SENNA/DOCUSATE TABLET PO SCH (09:00)
[2018-03-21] MEDS: METOPROLOL TARTRATE 50 MG TABLET PO SCH ×2 (09:03→21:00)
[2018-03-21] MEDS: OMEPRAZOLE 20 MG CAPSULE.DR PO SCH (09:04)
[2018-03-21] MEDS: VENLAFAXINE 75 MG CAP ER PO SCH (09:04)
[2018-03-21] MEDS: FERROUS SULFATE 325 MG TABLET PO SCH ×2 (09:04→17:57)
[2018-03-21] MEDS: AMLODIPINE 5 MG TABLET PO SCH (09:04)
[2018-03-21] MEDS: TACROLIMUS 1 MG CAPSULE PO SCH ×2 (09:04→21:01)
[2018-03-21] MEDS: TAMSULOSIN 0.4 MG CAP.ER.24H PO SCH (09:05)
[2018-03-21] MEDS: LACTOBACILLUS 1GM/ PACKET PO SCH ×3 (09:11→21:00)
[2018-03-21 12:12] LABS: HCT (SEDRATE) 42.2 % (39.2-51.8)
[2018-03-21 15:59] VITALS: BP 103/60
[2018-03-21 16:58] LABS: CULTURE INDICATED? YES; MICROSCOPIC INDICATED
[2018-03-21 21:35] VITALS: BP 126/79
[2018-03-22] MEDS: ACETAMINOPHEN 325 MG TABLET PO PRN ×2 (00:42→18:12)
[2018-03-22] MEDS: PIPERACILLIN/TAZO/PMX 3.375GM 50 ML IV SCH ×2 (02:02→10:30)
[2018-03-22] MEDS: SODIUM CHLORIDE 0.9% 1,000 ML IV SCH ×2 (02:02→21:22)
[2018-03-22] MEDS: HEPARIN 5,000 UNITS/ML, 1ML SQ SCH ×4 (02:37→21:23)
[2018-03-22 07:28] LABS: BASOPHILS # (AUTO) 0.03 x10^3/uL (0-0.1); BASOPHILS % (AUTO) 0 % (0-1); EOSINOPHILS # (AUTO) 0.14 x10^3/uL (0-0.4); EOSINOPHILS % (AUTO) 1 % (1-7); LYMPHOCYTES # (AUTO) 1.45 x10^3/uL (1-3.4); LYMPHOCYTES % (AUTO) 14 % (22-44); MD NO; MEAN CORPUSCULAR HEMOGLOBIN 32.4 pg (27.5-34.5); MEAN CORPUSCULAR HGB CONC 32.6 g/dL (33.2-36.2); MEAN CORPUSCULAR VOLUME 99.4 fL (81-97); MEAN PLATELET VOLUME 10.6 fL (7.4-10.4); MONOCYTES % (AUTO) 9 % (2-9); NEUTROPHILS # (AUTO) 8.08 x10^3/uL (1.8-6.8); NEUTROPHILS % (AUTO) 76 % (42-75); PLATELET COUNT 501 x10^3/uL (130-400); RED BLOOD COUNT 3.97 x10^6/uL (4.38-5.82); RED CELL DISTRIBUTION WIDTH 16.5 % (9.4-14.8)
[2018-03-22 08:19] VITALS: BP 164/88
[2018-03-22] MEDS: METOPROLOL TARTRATE 50 MG TABLET PO SCH ×2 (09:00→20:12)
[2018-03-22] MEDS: SENNA/DOCUSATE TABLET PO SCH (09:00)
[2018-03-22] MEDS: TACROLIMUS 1 MG CAPSULE PO SCH ×2 (09:51→20:12)
[2018-03-22] MEDS: TAMSULOSIN 0.4 MG CAP.ER.24H PO SCH (09:51)
[2018-03-22] MEDS: AMLODIPINE 10 MG TAB PO SCH (09:52)
[2018-03-22] MEDS: LACTOBACILLUS 1GM/ PACKET PO SCH ×3 (09:52→20:10)
[2018-03-22] MEDS: FERROUS SULFATE 325 MG TABLET PO SCH ×2 (09:52→17:25)
[2018-03-22] MEDS: VENLAFAXINE 75 MG CAP ER PO SCH (09:52)
[2018-03-22] MEDS: OMEPRAZOLE 20 MG CAPSULE.DR PO SCH (09:52)
[2018-03-22 14:40] VITALS: BP 132/79
[2018-03-22] MEDS: OXYcodone IR 5MG TABLET PO PRN (18:50)
[2018-03-22 21:09] VITALS: BP 149/80
[2018-03-23 03:29] VITALS: BP 150/98
[2018-03-23] MEDS: OXYcodone IR 5MG TABLET PO PRN ×2 (03:32→13:49)
[2018-03-23 06:58] VITALS: BP 147/84
[2018-03-23] MEDS: SENNA/DOCUSATE TABLET PO SCH (07:57)
[2018-03-23] MEDS: TACROLIMUS 1 MG CAPSULE PO SCH (08:13)
[2018-03-23] MEDS: LACTOBACILLUS 1GM/ PACKET PO SCH ×2 (08:13→17:12)
[2018-03-23] MEDS: OMEPRAZOLE 20 MG CAPSULE.DR PO SCH (08:14)
[2018-03-23] MEDS: VENLAFAXINE 75 MG CAP ER PO SCH (08:14)
[2018-03-23] MEDS: FERROUS SULFATE 325 MG TABLET PO SCH ×2 (08:14→17:12)
[2018-03-23] MEDS: TAMSULOSIN 0.4 MG CAP.ER.24H PO SCH (08:14)
[2018-03-23] MEDS: AMLODIPINE 10 MG TAB PO SCH (08:14)
[2018-03-23] MEDS: METOPROLOL TARTRATE 50 MG TABLET PO SCH (08:14)
[2018-03-23] MEDS: HEPARIN 5,000 UNITS/ML, 1ML SQ SCH (08:18)
[2018-03-23] MEDS ORDERED: HYDR-3342 PO ×2 (11:48)
[2018-03-23] MEDS ORDERED: TACR1CAP4 PO ×4 (11:48)
[2018-03-23] MEDS ORDERED: METO50TA82 PO (11:48)
[2018-03-23] MEDS ORDERED: AMLO10TA6 PO (11:48)
[2018-03-23 12:41] LABS: CHLORIDE 108 mmol/L (98-107)
[2018-03-23 12:47] LABS: ALBUMIN 2.9 g/dL (3.4-5.0); ANION GAP 9 mmol/L (5-15); BASOPHILS # (AUTO) 0.27 x10^3/uL (0-0.1); BASOPHILS % (AUTO) 2 % (0-1); CALCIUM 9.6 mg/dL (8.5-10.1); CREATININE 1.93 mg/dL (0.7-1.3); EOSINOPHILS # (AUTO) 0.15 x10^3/uL (0-0.4); EOSINOPHILS % (AUTO) 1 % (1-7); LYMPHOCYTES # (AUTO) 1.16 x10^3/uL (1-3.4); LYMPHOCYTES % (AUTO) 7 % (22-44); MD SCAN; MEAN CORPUSCULAR HEMOGLOBIN 32.1 pg (27.5-34.5); MEAN CORPUSCULAR VOLUME 100.1 fL (81-97); MEAN PLATELET VOLUME 10.8 fL (7.4-10.4); MONOCYTES # (AUTO) 1.45 x10^3/uL (0.2-0.8); MONOCYTES % (AUTO) 9 % (2-9); NEUTROPHILS # (AUTO) 13.34 x10^3/uL (1.8-6.8); NEUTROPHILS % (AUTO) 82 % (42-75); PLATELET COUNT 426 x10^3/uL (130-400); RED BLOOD COUNT 4.32 x10^6/uL (4.38-5.82); RED CELL DISTRIBUTION WIDTH 16.9 % (9.4-14.8)
[2018-03-23 12:53] VITALS: BP 128/72
[2018-03-23] MEDS: ONDANSETRON ODT 4 MG PO PRN (13:49)
== END 2018-03-23 18:00 | disposition home health service (06) | DRG 698 ==
LOC: ED 10:56 → EDIP 13:47 → 4WST 15:49
PROVIDERS: ADMIT Hospitalist; ATTEND Hospitalist
PROC: 0TB13ZX Excision of Left Kidney, Percutaneous Approach, Diagnostic (ICD-10-PCS; 2018-02-28)
PROC: 0T9B70Z Drainage of Bladder with Drainage Device, Via Natural or Artificial Opening (ICD-10-PCS; principal; 2018-03-21)
DX: T86.13 Kidney transplant infection (principal); N17.0 Acute kidney failure with tubular necrosis; E87.1 Hypo-osmolality and hyponatremia; E46 Unspecified protein-calorie malnutrition; K50.90 Crohn's disease, unspecified, without complications; K52.1 Toxic gastroenteritis and colitis; N10 Acute pyelonephritis; R18.8 Other ascites; N28.0 Ischemia and infarction of kidney; T86.19 Other complication of kidney transplant; Z68.23 Body mass index [BMI] 23.0-23.9, adult; D46.9 Myelodysplastic syndrome, unspecified; D63.1 Anemia in chronic kidney disease; E78.5 Hyperlipidemia, unspecified; I12.9 Hypertensive chronic kidney disease with stage 1 through stage 4 chronic kidney disease, or unspecified chronic kidney disease; E83.42 Hypomagnesemia; E87.6 Hypokalemia; I48.91 Unspecified atrial fibrillation; R31.9 Hematuria, unspecified; I73.9 Peripheral vascular disease, unspecified; K21.9 Gastro-esophageal reflux disease without esophagitis; T36.95XA Adverse effect of unspecified systemic antibiotic, initial encounter; Y92.89 Other specified places as the place of occurrence of the external cause; N18.3 Chronic kidney disease, stage 3 (moderate); N32.0 Bladder-neck obstruction; N40.0 Benign prostatic hyperplasia without lower urinary tract symptoms; R62.7 Adult failure to thrive; Z66 Do not resuscitate; Z85.828 Personal history of other malignant neoplasm of skin; Z86.73 Personal history of transient ischemic attack (TIA), and cerebral infarction without residual deficits; Z91.81 History of falling; Z96.652 Presence of left artificial knee joint; Y83.0 Surgical operation with transplant of whole organ as the cause of abnormal reaction of the patient, or of later complication, without mention of misadventure at the time of the procedure
CPT/HCPCS: 36415; 50200; 51702; 71045; 71250; 74176; 76776; 76857; 77012; 80048; 80053; 80069; 80197; 81001; 82040; 82306; 82330; 82436; 82570; 82728; 83520; 83540; 83550; 83605; 83735; 83970; 84100; 84133; 84145; 84156; 84300; 84550; 85025; 85651; 86038; 86140; 86160; 86162; 86200; 86225; 86256; 86431; 87040; 87086; 87106; 87324; 87496; 87799; 88300; 88305; 88329; 93306; 99156; 99157; 99285; G0378; J0696; J1644; J2250; J2543; J3010; J3480; J7070; J7507; Q0162; J2310; J3475; J7030; J7120; J7512; J7517

== ENCOUNTER 2018-03-26 16:04 | Inpatient (IN) | payer MEDICARE ==
[~2018-03-26] VITALS: Ht 180.3 cm; Wt 80.4 kg
[~2018-03-26 16:04] MED LIST changes: +AMLO10TA6 PO; +HYDR-3342 PO; +METO50TA82 PO; +VENL150C6 PO; +[UNRECOGNIZED DRUG - OTHER]
[2018-03-26] MEDS ORDERED: DILTIAZEM 125 MG in DEXTROSE 5% 100 ML IV SCH (16:30)
[2018-03-26] MEDS ORDERED: DILTIAZEM 5 MG/ML, 5ML ONE (16:30)
[2018-03-26] MEDS ORDERED: DILTIAZEM 5 MG/ML, 5ML IV ONE (16:30)
[2018-03-26 16:33] LABS: MICROSCOPIC AUTO
[2018-03-26 16:37] LABS: CULTURE INDICATED? YES
[2018-03-26 16:51] LABS: INTERNATIONAL NORMALIZED RATIO 0.96 (0.93-1.1); MEAN CORPUSCULAR HEMOGLOBIN 32.3 pg (27.5-34.5); MEAN CORPUSCULAR HGB CONC 32.6 g/dL (33.2-36.2); MEAN PLATELET VOLUME 11.7 fL (7.4-10.4); PLATELET COUNT 432 x10^3/uL (130-400); RED BLOOD COUNT 4.14 x10^6/uL (4.38-5.82)
[2018-03-26 16:52] LABS: ALANINE AMINOTRANSFERASE 53 U/L (12-78); ALBUMIN 2.6 g/dL (3.4-5.0); ANION GAP 13 mmol/L (5-15); CALCIUM 9.8 mg/dL (8.5-10.1); CHLORIDE 104 mmol/L (98-107)
[2018-03-26 16:56] LABS: ALKALINE PHOSPHATASE 116 U/L (45-117); BILIRUBIN,TOTAL 1.1 mg/dL (0.2-1.0); CREATININE 4.81 mg/dL (0.7-1.3); TOTAL PROTEIN 7.7 g/dL (6.4-8.2)
[2018-03-26 17:07] LABS: MD YES
[2018-03-26 17:08] LABS: <PLATELET ESTIMATE> ADEQUATE; <RBC MORPHOLOGY> NORMAL; BANDS%(MANUAL) 3 % (0-7); EOS% (MANUAL) 1 % (1-7); LARGE PLATELETS 1+; LYMPHS% (MANUAL) 3 % (22-44); MONOS#(MANUAL) 1.39 x10^3/uL (0.3-2.7); MONOS% (MANUAL) 7 % (2-9); SEG#(MANUAL) 17.11 x10^3/uL (1.8-6.8); SEGS% (MANUAL) 86 % (42-75)
[2018-03-26] MEDS ORDERED: SODIUM CHLORIDE FLUSH 10ML SYR IVF ONE (17:30)
[2018-03-26] MEDS: D5 IV SCH (18:00)
[2018-03-26] MEDS: NACL IV SCH (18:00)
[2018-03-26] MEDS: SODIUM BICARBONATE IV SCH (18:00)
[2018-03-26] MEDS ORDERED: HYDROcodone/APAP 5/325 TABLET ONE (18:39)
[2018-03-26] MEDS ORDERED: SODIUM CHLORIDE FLUSH 10ML SYR IVF PRN (19:30)
[2018-03-26] MEDS ORDERED: ONDANSETRON 2MG/ML, 2ML IVPush PRN (20:00)
[2018-03-26] MEDS ORDERED: BISACODYL 10 MG SUPP PR PRN (20:00)
[2018-03-26] MEDS ORDERED: hydrALAzine 20 MG/ML, 1ML IVPush PRN (20:00)
[2018-03-26] MEDS ORDERED: LABETALOL 5MG/ML, 20ML IVPush PRN (20:00)
[2018-03-26] MEDS ORDERED: POLYETHYLENE GLYCOL 17 GM PACKET PO PRN (20:00)
[2018-03-26] MEDS ORDERED: ONDANSETRON 2MG/ML, 2ML IV PRN (20:00)
[2018-03-26] MEDS ORDERED: PROMETHAZINE 25 MG/ML, 1ML IM PRN (20:00)
[2018-03-26] MEDS ORDERED: DOCUSATE 100 MG CAPSULE PO PRN (20:00)
[2018-03-26] MEDS ORDERED: morphine SULFATE 10 MG/ML, 1ML IVPush PRN (20:00)
[2018-03-26] MEDS ORDERED: HYDROcodone/APAP 5/325 TABLET PO ONE (20:00)
[2018-03-26] MEDS ORDERED: GABAPENTIN 300 MG CAPSULE PO PRN (20:00)
[2018-03-26] MEDS ORDERED: PROMETHAZINE 25MG TABLET PO PRN (20:00)
[2018-03-26 20:33] LABS: FREE T4 (FREE THYROXINE) 1.31 ng/dL (0.76-1.46); THYROID STIMULATING HORMONE 1.11 mIU/L (0.358-3.740)
[2018-03-26] MEDS: VENLAFAXINE 75 MG CAP ER PO SCH (21:00)
[2018-03-26] MEDS ORDERED: DILTIAZEM 125 MG in SODIUM CHLORIDE 0.9% 100 ML IV SCH ×2 (21:00→23:51)
[2018-03-26] MEDS: FERROUS SULFATE 325 MG TABLET PO SCH (21:00)
[2018-03-26] MEDS: HEPARIN 5,000 UNITS/ML, 1ML SQ SCH (21:01)
[2018-03-26] MEDS: METOPROLOL TARTRATE 50 MG TABLET PO SCH (21:02)
[2018-03-26] MEDS: TACROLIMUS 1 MG CAPSULE PO SCH (21:02)
[2018-03-26 21:28] VITALS: BP 137/84
[2018-03-26 22:37] LABS: HEMOGLOBIN A1C 5.4 % (4.2-6.3)
[2018-03-27 00:51] LABS: CHLORIDE,URINE RANDOM 15 mmol/L; POTASSIUM,URINE RANDOM 38 mmol/L; SODIUM,URINE RANDOM 32 mmol/L
[2018-03-27 01:36] VITALS: BP 135/83
[2018-03-27] MEDS: D5 IV SCH ×3 (03:02→22:33)
[2018-03-27] MEDS: NACL IV SCH ×3 (03:02→22:33)
[2018-03-27] MEDS: SODIUM BICARBONATE IV SCH (03:02)
[2018-03-27] MEDS: HEPARIN 5,000 UNITS/ML, 1ML SQ SCH ×3 (04:44→20:16)
[2018-03-27] MEDS ORDERED: DILTIAZEM 125 MG in SODIUM CHLORIDE 0.9% 100 ML IV SCH (06:30)
[2018-03-27 07:47] VITALS: BP 132/79
[2018-03-27] MEDS: FERROUS SULFATE 325 MG TABLET PO SCH ×2 (08:54→16:58)
[2018-03-27] MEDS: AMLODIPINE 10 MG TAB PO SCH (08:55)
[2018-03-27] MEDS: VENLAFAXINE 75 MG CAP ER PO SCH (08:57)
[2018-03-27] MEDS: METOPROLOL TARTRATE 50 MG TABLET PO SCH ×2 (08:58→20:17)
[2018-03-27] MEDS: OMEPRAZOLE 20 MG CAPSULE.DR PO SCH (08:59)
[2018-03-27] MEDS: SENNA/DOCUSATE TABLET PO SCH (09:00)
[2018-03-27] MEDS: TACROLIMUS 1 MG CAPSULE PO SCH ×2 (09:00→20:17)
[2018-03-27] MEDS: TAMSULOSIN 0.4 MG CAP.ER.24H PO SCH (09:10)
[2018-03-27 11:03] LABS: ALANINE AMINOTRANSFERASE 41 U/L (12-78); ANION GAP 12 mmol/L (5-15); CHLORIDE 101 mmol/L (98-107); CREATININE 4.47 mg/dL (0.7-1.3)
[2018-03-27 11:04] LABS: TROPONIN I 0.849 ng/mL (0.000-0.045)
[2018-03-27 11:08] LABS: ALBUMIN 2.6 g/dL (3.4-5.0); CALCIUM 9.3 mg/dL (8.5-10.1); CHOLESTEROL, TOTAL 234 mg/dL (140-239); TOTAL PROTEIN 6.8 g/dL (6.4-8.2); TRIGLYCERIDES 157 mg/dL (50-200); VLDL CHOLESTEROL 31 mg/dL (0-25)
[2018-03-27 11:10] LABS: ALKALINE PHOSPHATASE 103 U/L (45-117); BILIRUBIN,TOTAL 0.9 mg/dL (0.2-1.0); CHOL/HDL RATIO 7.5; HDL CHOL % 13 % (26-37); HDL CHOLESTEROL (DIRECT) 31 mg/dL (40-60); LDL CHOLESTEROL,CALCULATED 172 mg/dL (54-169); LDL/HDL RATIO 5.5 (0.5-3.0)
[2018-03-27] MEDS: ONDANSETRON ODT 4 MG PO PRN (12:22)
[2018-03-27 12:30] LABS: MEAN CORPUSCULAR HEMOGLOBIN 32.7 pg (27.5-34.5); MEAN CORPUSCULAR HGB CONC 33.1 g/dL (33.2-36.2); MEAN CORPUSCULAR VOLUME 98.6 fL (81-97); MEAN PLATELET VOLUME 11.4 fL (7.4-10.4); PLATELET COUNT 358 x10^3/uL (130-400); RED BLOOD COUNT 3.68 x10^6/uL (4.38-5.82); RED CELL DISTRIBUTION WIDTH 16.2 % (9.4-14.8)
[2018-03-27 12:59] LABS: BASOPHILS # (AUTO) 0.13 x10^3/uL (0-0.1); BASOPHILS % (AUTO) 1 % (0-1); EOSINOPHILS % (AUTO) 1 % (1-7); LYMPHOCYTES # (AUTO) 0.99 x10^3/uL (1-3.4); LYMPHOCYTES % (AUTO) 7 % (22-44); MD SCAN; MONOCYTES # (AUTO) 1.11 x10^3/uL (0.2-0.8); MONOCYTES % (AUTO) 8 % (2-9); NEUTROPHILS # (AUTO) 11.91 x10^3/uL (1.8-6.8); NEUTROPHILS % (AUTO) 84 % (42-75)
[2018-03-27] MEDS: SODIUM ACETATE IV SCH ×2 (13:23→22:33)
[2018-03-27 14:26] VITALS: BP 136/82
[2018-03-27 17:07] LABS: TROPONIN I 0.636 ng/mL (0.000-0.045)
[2018-03-27 19:20] VITALS: BP 123/82
[2018-03-27 21:44] LABS: TROPONIN I 0.545 ng/mL (0.000-0.045)
[2018-03-28 02:00] VITALS: BP 114/77
[2018-03-28] MEDS: HEPARIN 5,000 UNITS/ML, 1ML SQ SCH ×3 (05:33→20:12)
[2018-03-28 06:07] LABS: MEAN CORPUSCULAR HEMOGLOBIN 32.1 pg (27.5-34.5); MEAN CORPUSCULAR HGB CONC 32.3 g/dL (33.2-36.2); MEAN CORPUSCULAR VOLUME 99.1 fL (81-97); PLATELET COUNT 279 x10^3/uL (130-400); RED BLOOD COUNT 3.71 x10^6/uL (4.38-5.82); RED CELL DISTRIBUTION WIDTH 15.9 % (9.4-14.8)
[2018-03-28 06:10] LABS: ANION GAP 10 mmol/L (5-15); CALCIUM 8.6 mg/dL (8.5-10.1); CHLORIDE 101 mmol/L (98-107); CREATININE 4.08 mg/dL (0.7-1.3)
[2018-03-28 06:29] LABS: MD YES
[2018-03-28 06:31] LABS: <RBC MORPHOLOGY> NORMAL; EOS#(MANUAL) 0.22 x10^3/uL (0.0-0.4); EOS% (MANUAL) 2 % (1-7); LYMPH#(MANUAL) 0.44 x10^3/uL (1-3.4); LYMPHS% (MANUAL) 4 % (22-44); MONOS#(MANUAL) 0.44 x10^3/uL (0.3-2.7); MONOS% (MANUAL) 4 % (2-9); SEG#(MANUAL) 9.99 x10^3/uL (1.8-6.8); SEGS% (MANUAL) 90 % (42-75)
[2018-03-28 06:32] LABS: <PLATELET ESTIMATE> ADEQUATE; GIANT PLATELETS 1+; LARGE PLATELETS 1+
[2018-03-28 06:33] LABS: TOXIC GRAN 1+
[2018-03-28] MEDS: SODIUM ACETATE IV SCH ×2 (06:57→17:49)
[2018-03-28] MEDS: NACL IV SCH ×2 (06:57→17:49)
[2018-03-28] MEDS: D5 IV SCH ×2 (06:57→17:49)
[2018-03-28 07:26] VITALS: BP 120/76
[2018-03-28] MEDS: FERROUS SULFATE 325 MG TABLET PO SCH ×2 (08:48→16:46)
[2018-03-28] MEDS: TAMSULOSIN 0.4 MG CAP.ER.24H PO SCH (08:49)
[2018-03-28] MEDS: OMEPRAZOLE 20 MG CAPSULE.DR PO SCH (08:49)
[2018-03-28] MEDS: TACROLIMUS 1 MG CAPSULE PO SCH ×2 (08:49→20:12)
[2018-03-28] MEDS: AMLODIPINE 10 MG TAB PO SCH (08:49)
[2018-03-28] MEDS: METOPROLOL TARTRATE 50 MG TABLET PO SCH ×2 (08:50→20:13)
[2018-03-28] MEDS: VENLAFAXINE 75 MG CAP ER PO SCH (08:51)
[2018-03-28] MEDS: SENNA/DOCUSATE TABLET PO SCH (08:58)
[2018-03-28] MEDS ORDERED: MAGNESIUM SULFATE PMX 2GM/50ML 50 ML IV ONE (09:30)
[2018-03-28] MEDS ORDERED: HYDR500C3 PO (11:22)
[2018-03-28 13:35] VITALS: BP 125/69
[2018-03-28 16:45] VITALS: BP 125/76
[2018-03-28 18:58] VITALS: BP 126/60
[2018-03-28] MEDS: ACETAMINOPHEN 325 MG TABLET PO PRN (20:21)
[2018-03-29 00:46] VITALS: BP 129/61
[2018-03-29] MEDS: SODIUM ACETATE IV SCH ×2 (02:10→09:48)
[2018-03-29] MEDS: D5 IV SCH ×2 (02:10→09:48)
[2018-03-29] MEDS: NACL IV SCH ×2 (02:10→09:48)
[2018-03-29] MEDS: HEPARIN 5,000 UNITS/ML, 1ML SQ SCH ×3 (05:00→20:10)
[2018-03-29 07:53] VITALS: BP 132/68
[2018-03-29] MEDS ORDERED: MAGNESIUM SULFATE PMX 2GM/50ML 50 ML IV ONE (08:00)
[2018-03-29] MEDS: ONDANSETRON ODT 4 MG PO PRN ×2 (08:21→22:35)
[2018-03-29 08:39] LABS: ANION GAP 10 mmol/L (5-15); CALCIUM 9.4 mg/dL (8.5-10.1); CHLORIDE 101 mmol/L (98-107); CREATININE 3.75 mg/dL (0.7-1.3)
[2018-03-29] MEDS: TAMSULOSIN 0.4 MG CAP.ER.24H PO SCH (10:07)
[2018-03-29] MEDS: TACROLIMUS 1 MG CAPSULE PO SCH ×2 (10:08→20:09)
[2018-03-29] MEDS: AMLODIPINE 10 MG TAB PO SCH (10:09)
[2018-03-29] MEDS: METOPROLOL TARTRATE 50 MG TABLET PO SCH ×2 (10:09→20:10)
[2018-03-29] MEDS: FERROUS SULFATE 325 MG TABLET PO SCH ×2 (10:10→17:06)
[2018-03-29] MEDS: VENLAFAXINE 75 MG CAP ER PO SCH (10:10)
[2018-03-29] MEDS: SENNA/DOCUSATE TABLET PO SCH (10:10)
[2018-03-29] MEDS: OMEPRAZOLE 20 MG CAPSULE.DR PO SCH (10:10)
[2018-03-29 10:35] LABS: BASOPHILS # (AUTO) 0.06 x10^3/uL (0-0.1); BASOPHILS % (AUTO) 1 % (0-1); EOSINOPHILS # (AUTO) 0.02 x10^3/uL (0-0.4); EOSINOPHILS % (AUTO) 0 % (1-7); LYMPHOCYTES # (AUTO) 0.51 x10^3/uL (1-3.4); LYMPHOCYTES % (AUTO) 7 % (22-44); MEAN CORPUSCULAR HEMOGLOBIN 32.4 pg (27.5-34.5); MEAN CORPUSCULAR HGB CONC 32.4 g/dL (33.2-36.2); MEAN PLATELET VOLUME 12.2 fL (7.4-10.4); MONOCYTES # (AUTO) 0.42 x10^3/uL (0.2-0.8); MONOCYTES % (AUTO) 6 % (2-9); NEUTROPHILS # (AUTO) 6.31 x10^3/uL (1.8-6.8); NEUTROPHILS % (AUTO) 86 % (42-75); PLATELET COUNT 277 x10^3/uL (130-400); RED BLOOD COUNT 4.03 x10^6/uL (4.38-5.82)
[2018-03-29 10:36] LABS: MD SCAN
[2018-03-29 13:33] VITALS: BP 144/89
[2018-03-29 19:44] VITALS: BP 131/89
[2018-03-30 00:53] VITALS: BP 138/70
[2018-03-30] MEDS: SODIUM CHLORIDE 0.9% 1,000 ML IV SCH ×3 (01:01→20:00)
[2018-03-30] MEDS: HEPARIN 5,000 UNITS/ML, 1ML SQ SCH ×3 (05:36→20:13)
[2018-03-30] MEDS: TAMSULOSIN 0.4 MG CAP.ER.24H PO SCH (08:23)
[2018-03-30] MEDS: AMLODIPINE 10 MG TAB PO SCH (08:23)
[2018-03-30] MEDS: OMEPRAZOLE 20 MG CAPSULE.DR PO SCH (08:23)
[2018-03-30] MEDS: METOPROLOL TARTRATE 50 MG TABLET PO SCH ×2 (08:23→20:14)
[2018-03-30] MEDS: VENLAFAXINE 75 MG CAP ER PO SCH (08:24)
[2018-03-30] MEDS: TACROLIMUS 1 MG CAPSULE PO SCH ×2 (08:24→20:13)
[2018-03-30] MEDS: SENNA/DOCUSATE TABLET PO SCH (08:24)
[2018-03-30] MEDS: FERROUS SULFATE 325 MG TABLET PO SCH ×2 (08:27→16:47)
[2018-03-30 09:41] VITALS: BP 128/63
[2018-03-30 11:25] LABS: MEAN CORPUSCULAR HEMOGLOBIN 31.3 pg (27.5-34.5); MEAN CORPUSCULAR HGB CONC 31.7 g/dL (33.2-36.2); MEAN CORPUSCULAR VOLUME 98.6 fL (81-97); MEAN PLATELET VOLUME 11.8 fL (7.4-10.4); PLATELET COUNT 401 x10^3/uL (130-400); RED BLOOD COUNT 3.85 x10^6/uL (4.38-5.82); RED CELL DISTRIBUTION WIDTH 16.3 % (9.4-14.8)
[2018-03-30 11:30] LABS: ALANINE AMINOTRANSFERASE 44 U/L (12-78); ALBUMIN 2.4 g/dL (3.4-5.0); ANION GAP 12 mmol/L (5-15); CALCIUM 9.1 mg/dL (8.5-10.1); CHLORIDE 100 mmol/L (98-107); CREATININE 3.31 mg/dL (0.7-1.3)
[2018-03-30 11:32] LABS: ALKALINE PHOSPHATASE 103 U/L (45-117); BILIRUBIN,TOTAL 0.5 mg/dL (0.2-1.0); TOTAL PROTEIN 6.5 g/dL (6.4-8.2)
[2018-03-30 11:36] LABS: BASOPHILS # (AUTO) 0.01 x10^3/uL (0-0.1); BASOPHILS % (AUTO) 0 % (0-1); EOSINOPHILS # (AUTO) 0.06 x10^3/uL (0-0.4); EOSINOPHILS % (AUTO) 1 % (1-7); LYMPHOCYTES # (AUTO) 0.84 x10^3/uL (1-3.4); LYMPHOCYTES % (AUTO) 8 % (22-44); MD SCAN; MONOCYTES # (AUTO) 0.65 x10^3/uL (0.2-0.8); MONOCYTES % (AUTO) 6 % (2-9); NEUTROPHILS # (AUTO) 8.58 x10^3/uL (1.8-6.8); NEUTROPHILS % (AUTO) 85 % (42-75)
[2018-03-30 15:53] VITALS: BP 128/71
[2018-03-30 19:45] VITALS: BP 123/84
[2018-03-31 01:11] VITALS: BP 144/78
[2018-03-31] MEDS: SODIUM CHLORIDE 0.9% 1,000 ML IV SCH (03:43)
[2018-03-31] MEDS: HEPARIN 5,000 UNITS/ML, 1ML SQ SCH ×3 (04:41→20:31)
[2018-03-31 05:45] LABS: ANION GAP 11 mmol/L (5-15); CALCIUM 9.3 mg/dL (8.5-10.1); CHLORIDE 105 mmol/L (98-107); CREATININE 3.05 mg/dL (0.7-1.3)
[2018-03-31 06:35] VITALS: BP 157/87
[2018-03-31] MEDS: SODIUM BICARBONATE 8.4% 75 MEQ in SODIUM CHLORIDE 0.45% 1,000 ML IV SCH ×3 (09:47→22:00)
[2018-03-31] MEDS: OMEPRAZOLE 20 MG CAPSULE.DR PO SCH (09:50)
[2018-03-31] MEDS: VENLAFAXINE 75 MG CAP ER PO SCH (09:50)
[2018-03-31] MEDS: TAMSULOSIN 0.4 MG CAP.ER.24H PO SCH (09:50)
[2018-03-31] MEDS: METOPROLOL TARTRATE 50 MG TABLET PO SCH ×2 (09:51→20:30)
[2018-03-31] MEDS: SENNA/DOCUSATE TABLET PO SCH (09:51)
[2018-03-31] MEDS: FERROUS SULFATE 325 MG TABLET PO SCH ×2 (09:51→15:56)
[2018-03-31] MEDS: TACROLIMUS 1 MG CAPSULE PO SCH ×2 (09:51→20:30)
[2018-03-31] MEDS: AMLODIPINE 10 MG TAB PO SCH (09:51)
[2018-03-31] MEDS: ACETAMINOPHEN 325 MG TABLET PO PRN (10:17)
[2018-03-31 13:08] VITALS: BP 126/78
[2018-03-31 14:43] LABS: CULTURE INDICATED? YES; MICROSCOPIC INDICATED
[2018-03-31] MEDS: AMPICILLIN/SULBACTAM 3 GM in SODIUM CHLORIDE 0.9% 100 ML IV SCH (16:57)
[2018-03-31 19:10] VITALS: BP 153/87
[2018-04-01] MEDS: AMPICILLIN/SULBACTAM 3 GM in SODIUM CHLORIDE 0.9% 100 ML IV SCH ×4 (00:06→16:56)
[2018-04-01 01:32] VITALS: BP 115/63
[2018-04-01] MEDS: HEPARIN 5,000 UNITS/ML, 1ML SQ SCH ×3 (05:10→21:40)
[2018-04-01 07:51] VITALS: BP 150/84
[2018-04-01] MEDS: VENLAFAXINE 75 MG CAP ER PO SCH (08:48)
[2018-04-01] MEDS: AMLODIPINE 10 MG TAB PO SCH (08:49)
[2018-04-01] MEDS: TAMSULOSIN 0.4 MG CAP.ER.24H PO SCH (08:50)
[2018-04-01] MEDS: FERROUS SULFATE 325 MG TABLET PO SCH ×2 (08:50→16:56)
[2018-04-01] MEDS: OMEPRAZOLE 20 MG CAPSULE.DR PO SCH (08:51)
[2018-04-01] MEDS: METOPROLOL TARTRATE 50 MG TABLET PO SCH ×2 (08:51→21:39)
[2018-04-01] MEDS: TACROLIMUS 1 MG CAPSULE PO SCH ×2 (08:57→21:40)
[2018-04-01] MEDS: ONDANSETRON ODT 4 MG PO PRN (08:58)
[2018-04-01] MEDS: SENNA/DOCUSATE TABLET PO SCH (08:58)
[2018-04-01] MEDS: SODIUM BICARBONATE 8.4% 75 MEQ in SODIUM CHLORIDE 0.45% 1,000 ML IV SCH ×2 (09:08→23:15)
[2018-04-01 11:02] LABS: ALANINE AMINOTRANSFERASE 43 U/L (12-78); ALBUMIN 2.3 g/dL (3.4-5.0); ANION GAP 11 mmol/L (5-15); CHLORIDE 102 mmol/L (98-107); CREATININE 3.16 mg/dL (0.7-1.3)
[2018-04-01 11:04] LABS: ALKALINE PHOSPHATASE 99 U/L (45-117); BILIRUBIN,TOTAL 0.4 mg/dL (0.2-1.0); TOTAL PROTEIN 6.2 g/dL (6.4-8.2)
[2018-04-01 12:24] VITALS: BP 134/72
[2018-04-01] MEDS ORDERED: MAGNESIUM SULFATE PMX 2GM/50ML 50 ML IV ONE (15:00)
[2018-04-01 15:12] LABS: CULTURE INDICATED? YES; MICROSCOPIC INDICATED
[2018-04-01 16:58] VITALS: BP 159/96
[2018-04-01 19:03] VITALS: BP 118/74
[2018-04-02 02:19] VITALS: BP 151/81
[2018-04-02] MEDS: HEPARIN 5,000 UNITS/ML, 1ML SQ SCH ×3 (05:16→20:39)
[2018-04-02] MEDS: AMPICILLIN/SULBACTAM 3 GM in SODIUM CHLORIDE 0.9% 100 ML IV SCH ×2 (05:16→18:23)
[2018-04-02 07:19] LABS: ALBUMIN 2.3 g/dL (3.4-5.0); ANION GAP 12 mmol/L (5-15); CALCIUM 9.8 mg/dL (8.5-10.1); CHLORIDE 102 mmol/L (98-107); CREATININE 3.26 mg/dL (0.7-1.3)
[2018-04-02 07:44] VITALS: BP 154/84
[2018-04-02 08:04] LABS: MD YES; MEAN CORPUSCULAR HEMOGLOBIN 31.2 pg (27.5-34.5); MEAN CORPUSCULAR HGB CONC 32.1 g/dL (33.2-36.2); MEAN CORPUSCULAR VOLUME 97.5 fL (81-97); MEAN PLATELET VOLUME 13.5 fL (7.4-10.4); PLATELET COUNT 355 x10^3/uL (130-400); RED CELL DISTRIBUTION WIDTH 15.8 % (9.4-14.8)
[2018-04-02 08:06] LABS: BAND#(MANUAL) 0.16 x10^3/uL; BANDS%(MANUAL) 2 % (0-7); LYMPH#(MANUAL) 1.12 x10^3/uL (1-3.4); LYMPHS% (MANUAL) 14 % (22-44); MONOS#(MANUAL) 0.24 x10^3/uL (0.3-2.7); MONOS% (MANUAL) 3 % (2-9); SEG#(MANUAL) 6.48 x10^3/uL (1.8-6.8); SEGS% (MANUAL) 81 % (42-75)
[2018-04-02 08:07] LABS: <PLATELET ESTIMATE> ADEQUATE; ANISOCYTOSIS 1+; GIANT PLATELETS 1+; LARGE PLATELETS 1+
[2018-04-02] MEDS ORDERED: SENNA/DOCUSATE TABLET PO PRN (09:00)
[2018-04-02] MEDS: VENLAFAXINE 75 MG CAP ER PO SCH (09:29)
[2018-04-02] MEDS: OMEPRAZOLE 20 MG CAPSULE.DR PO SCH (09:30)
[2018-04-02] MEDS: FERROUS SULFATE 325 MG TABLET PO SCH ×2 (09:30→16:22)
[2018-04-02] MEDS: AMLODIPINE 10 MG TAB PO SCH (09:31)
[2018-04-02] MEDS: METOPROLOL TARTRATE 50 MG TABLET PO SCH ×2 (09:31→20:45)
[2018-04-02] MEDS: TAMSULOSIN 0.4 MG CAP.ER.24H PO SCH (09:31)
[2018-04-02] MEDS: TACROLIMUS 1 MG CAPSULE PO SCH ×2 (09:35→20:39)
[2018-04-02] MEDS: SODIUM BICARBONATE 8.4% 75 MEQ in SODIUM CHLORIDE 0.45% 1,000 ML IV SCH ×2 (10:23→20:44)
[2018-04-02] MEDS ORDERED: PHARMACY MAY ADJ FOR RENAL FX MC PRN (11:00)
[2018-04-02] MEDS: CEFTRIAXONE PMX 1GM/50ML 50 ML IV SCH (12:06)
[2018-04-02 12:53] VITALS: BP 129/75
[2018-04-02 19:25] VITALS: BP 135/71
[2018-04-03 00:15] VITALS: BP 159/94
[2018-04-03] MEDS: SODIUM BICARBONATE 8.4% 75 MEQ in SODIUM CHLORIDE 0.45% 1,000 ML IV SCH (05:21)
[2018-04-03] MEDS: AMPICILLIN/SULBACTAM 3 GM in SODIUM CHLORIDE 0.9% 100 ML IV SCH ×2 (05:21→20:04)
[2018-04-03] MEDS: HEPARIN 5,000 UNITS/ML, 1ML SQ SCH ×3 (05:21→22:27)
[2018-04-03 06:40] LABS: ALBUMIN 2.3 g/dL (3.4-5.0); ANION GAP 12 mmol/L (5-15); CALCIUM 9.2 mg/dL (8.5-10.1); CHLORIDE 101 mmol/L (98-107); CREATININE 3.34 mg/dL (0.7-1.3)
[2018-04-03 06:50] LABS: MEAN CORPUSCULAR HEMOGLOBIN 31.9 pg (27.5-34.5); MEAN CORPUSCULAR HGB CONC 32.2 g/dL (33.2-36.2); MEAN CORPUSCULAR VOLUME 98.9 fL (81-97); MEAN PLATELET VOLUME 12.6 fL (7.4-10.4); PLATELET COUNT 393 x10^3/uL (130-400); RED BLOOD COUNT 3.62 x10^6/uL (4.38-5.82); RED CELL DISTRIBUTION WIDTH 16.1 % (9.4-14.8)
[2018-04-03 06:51] LABS: BASOPHILS # (AUTO) 0.05 x10^3/uL (0-0.1); BASOPHILS % (AUTO) 1 % (0-1); EOSINOPHILS # (AUTO) 0.07 x10^3/uL (0-0.4); EOSINOPHILS % (AUTO) 1 % (1-7); LYMPHOCYTES # (AUTO) 0.98 x10^3/uL (1-3.4); LYMPHOCYTES % (AUTO) 13 % (22-44); MD SCAN; MONOCYTES # (AUTO) 0.62 x10^3/uL (0.2-0.8); MONOCYTES % (AUTO) 9 % (2-9); NEUTROPHILS # (AUTO) 5.61 x10^3/uL (1.8-6.8); NEUTROPHILS % (AUTO) 77 % (42-75)
[2018-04-03 08:30] VITALS: BP 147/94
[2018-04-03] MEDS: AMLODIPINE 10 MG TAB PO SCH (08:52)
[2018-04-03] MEDS: TAMSULOSIN 0.4 MG CAP.ER.24H PO SCH (08:52)
[2018-04-03] MEDS: METOPROLOL TARTRATE 50 MG TABLET PO SCH ×2 (08:52→20:05)
[2018-04-03] MEDS: OMEPRAZOLE 20 MG CAPSULE.DR PO SCH (08:52)
[2018-04-03] MEDS: VENLAFAXINE 75 MG CAP ER PO SCH (08:52)
[2018-04-03] MEDS: FERROUS SULFATE 325 MG TABLET PO SCH ×2 (08:58→18:08)
[2018-04-03] MEDS: TACROLIMUS 1 MG CAPSULE PO SCH ×2 (10:15→20:04)
[2018-04-03] MEDS: CEFTRIAXONE PMX 1GM/50ML 50 ML IV SCH (13:55)
[2018-04-03 14:30] VITALS: BP 102/65
[2018-04-03 19:16] VITALS: BP 149/76
[2018-04-03] MEDS: NAPHAZOLINE/PHENIRAMINE OPHTH EACHEYE PRN (20:04)
[2018-04-04 02:09] VITALS: BP 150/92
[2018-04-04] MEDS: HEPARIN 5,000 UNITS/ML, 1ML SQ SCH ×3 (06:01→22:23)
[2018-04-04 07:45] VITALS: BP 178/83
[2018-04-04] MEDS: VENLAFAXINE 75 MG CAP ER PO SCH (08:32)
[2018-04-04] MEDS: OMEPRAZOLE 20 MG CAPSULE.DR PO SCH (08:32)
[2018-04-04] MEDS: TAMSULOSIN 0.4 MG CAP.ER.24H PO SCH (08:32)
[2018-04-04] MEDS: AMLODIPINE 10 MG TAB PO SCH (08:32)
[2018-04-04] MEDS: TACROLIMUS 1 MG CAPSULE PO SCH ×2 (08:32→20:09)
[2018-04-04] MEDS: FERROUS SULFATE 325 MG TABLET PO SCH ×2 (08:32→15:51)
[2018-04-04 08:33] LABS: ALBUMIN 2.7 g/dL (3.4-5.0); ANION GAP 10 mmol/L (5-15); CALCIUM 9.9 mg/dL (8.5-10.1); CHLORIDE 101 mmol/L (98-107)
[2018-04-04] MEDS: METOPROLOL TARTRATE 50 MG TABLET PO SCH ×2 (08:33→20:09)
[2018-04-04] MEDS: AMPICILLIN/SULBACTAM 3 GM in SODIUM CHLORIDE 0.9% 100 ML IV SCH ×2 (08:33→22:23)
[2018-04-04] MEDS: NAPHAZOLINE/PHENIRAMINE OPHTH EACHEYE PRN ×2 (08:38→20:09)
[2018-04-04 08:50] LABS: MEAN CORPUSCULAR HEMOGLOBIN 31.7 pg (27.5-34.5); MEAN CORPUSCULAR HGB CONC 32.1 g/dL (33.2-36.2); MEAN CORPUSCULAR VOLUME 98.5 fL (81-97); MEAN PLATELET VOLUME 12.9 fL (7.4-10.4); PLATELET COUNT 448 x10^3/uL (130-400); RED BLOOD COUNT 4.26 x10^6/uL (4.38-5.82); RED CELL DISTRIBUTION WIDTH 16.1 % (9.4-14.8)
[2018-04-04 08:52] LABS: BASOPHILS # (AUTO) 0.12 x10^3/uL (0-0.1); BASOPHILS % (AUTO) 2 % (0-1); EOSINOPHILS # (AUTO) 0.12 x10^3/uL (0-0.4); EOSINOPHILS % (AUTO) 2 % (1-7); LYMPHOCYTES # (AUTO) 1.58 x10^3/uL (1-3.4); LYMPHOCYTES % (AUTO) 22 % (22-44); MD SCAN; MONOCYTES % (AUTO) 11 % (2-9); NEUTROPHILS # (AUTO) 4.75 x10^3/uL (1.8-6.8); NEUTROPHILS % (AUTO) 65 % (42-75)
[2018-04-04 09:26] LABS: ALANINE AMINOTRANSFERASE 54 U/L (12-78); ALKALINE PHOSPHATASE 114 U/L (45-117); BILIRUBIN,TOTAL 0.3 mg/dL (0.2-1.0); CREATININE 3.34 mg/dL (0.7-1.3); TOTAL PROTEIN 7.1 g/dL (6.4-8.2)
[2018-04-04] MEDS: CEFTRIAXONE PMX 1GM/50ML 50 ML IV SCH (11:47)
[2018-04-04 14:20] VITALS: BP 129/76
[2018-04-04 18:25] VITALS: BP 130/81
[2018-04-04] MEDS: ONDANSETRON ODT 4 MG PO PRN (20:16)
[2018-04-05 00:06] VITALS: BP 138/88
[2018-04-05] MEDS: HEPARIN 5,000 UNITS/ML, 1ML SQ SCH ×3 (06:05→21:19)
[2018-04-05 06:06] LABS: ALBUMIN 2.6 g/dL (3.4-5.0); ANION GAP 10 mmol/L (5-15); CALCIUM 9.5 mg/dL (8.5-10.1); CHLORIDE 103 mmol/L (98-107)
[2018-04-05 06:09] LABS: ALANINE AMINOTRANSFERASE 59 U/L (12-78); ALKALINE PHOSPHATASE 105 U/L (45-117); BILIRUBIN,TOTAL 0.3 mg/dL (0.2-1.0); CREATININE 3.49 mg/dL (0.7-1.3); TOTAL PROTEIN 6.9 g/dL (6.4-8.2)
[2018-04-05 07:00] LABS: BASOPHILS # (AUTO) 0.05 x10^3/uL (0-0.1); BASOPHILS % (AUTO) 1 % (0-1); EOSINOPHILS % (AUTO) 1 % (1-7); LYMPHOCYTES # (AUTO) 1.59 x10^3/uL (1-3.4); LYMPHOCYTES % (AUTO) 18 % (22-44); MD SCAN; MEAN CORPUSCULAR HEMOGLOBIN 31.6 pg (27.5-34.5); MEAN CORPUSCULAR HGB CONC 32.1 g/dL (33.2-36.2); MEAN CORPUSCULAR VOLUME 98.6 fL (81-97); MEAN PLATELET VOLUME 12.2 fL (7.4-10.4); MONOCYTES # (AUTO) 0.74 x10^3/uL (0.2-0.8); MONOCYTES % (AUTO) 8 % (2-9); NEUTROPHILS # (AUTO) 6.36 x10^3/uL (1.8-6.8); NEUTROPHILS % (AUTO) 72 % (42-75); PLATELET COUNT 413 x10^3/uL (130-400); RED BLOOD COUNT 4.21 x10^6/uL (4.38-5.82); RED CELL DISTRIBUTION WIDTH 15.6 % (9.4-14.8)
[2018-04-05 07:14] VITALS: BP 155/87
[2018-04-05] MEDS: OMEPRAZOLE 20 MG CAPSULE.DR PO SCH (08:14)
[2018-04-05] MEDS: FERROUS SULFATE 325 MG TABLET PO SCH ×2 (08:14→16:49)
[2018-04-05] MEDS: METOPROLOL TARTRATE 50 MG TABLET PO SCH ×2 (08:15→20:03)
[2018-04-05] MEDS: VENLAFAXINE 75 MG CAP ER PO SCH (08:15)
[2018-04-05] MEDS: AMLODIPINE 10 MG TAB PO SCH (08:15)
[2018-04-05] MEDS: TACROLIMUS 1 MG CAPSULE PO SCH ×2 (08:16→20:03)
[2018-04-05] MEDS: TAMSULOSIN 0.4 MG CAP.ER.24H PO SCH (08:19)
[2018-04-05] MEDS: LEVOFLOXACIN 500 MG TABLET PO SCH (09:39)
[2018-04-05 13:25] VITALS: BP 133/86
[2018-04-05 20:08] VITALS: BP 132/73
[2018-04-06 01:20] VITALS: BP 138/79
[2018-04-06] MEDS: HEPARIN 5,000 UNITS/ML, 1ML SQ SCH ×3 (04:36→22:17)
[2018-04-06 05:28] LABS: ANION GAP 12 mmol/L (5-15); CALCIUM 9.8 mg/dL (8.5-10.1); CHLORIDE 102 mmol/L (98-107); CREATININE 3.52 mg/dL (0.7-1.3)
[2018-04-06 06:59] VITALS: BP 162/86
[2018-04-06] MEDS: ONDANSETRON ODT 4 MG PO PRN (08:03)
[2018-04-06] MEDS: OMEPRAZOLE 20 MG CAPSULE.DR PO SCH (08:04)
[2018-04-06] MEDS: FERROUS SULFATE 325 MG TABLET PO SCH ×2 (08:04→16:20)
[2018-04-06] MEDS: METOPROLOL TARTRATE 50 MG TABLET PO SCH ×2 (08:04→20:39)
[2018-04-06] MEDS: AMLODIPINE 10 MG TAB PO SCH (08:04)
[2018-04-06] MEDS: TAMSULOSIN 0.4 MG CAP.ER.24H PO SCH (08:04)
[2018-04-06] MEDS: TACROLIMUS 1 MG CAPSULE PO SCH ×2 (08:04→20:38)
[2018-04-06] MEDS: VENLAFAXINE 75 MG CAP ER PO SCH (08:04)
[2018-04-06] MEDS ORDERED: TACR1CAP4 PO (10:39)
[2018-04-06] MEDS ORDERED: LEVO500T47 PO (10:39)
[2018-04-06] MEDS ORDERED: HYDR-3343 PO (10:39)
[2018-04-06 13:25] VITALS: BP 115/81
[2018-04-06 20:06] VITALS: BP 135/84
[2018-04-06] MEDS: NAPHAZOLINE/PHENIRAMINE OPHTH EACHEYE PRN (22:17)
[2018-04-06] MEDS: ACETAMINOPHEN 325 MG TABLET PO PRN (22:54)
[2018-04-07 03:23] VITALS: BP 139/87
[2018-04-07 04:56] LABS: MEAN CORPUSCULAR HEMOGLOBIN 31.9 pg (27.5-34.5); MEAN CORPUSCULAR HGB CONC 32.5 g/dL (33.2-36.2); MEAN CORPUSCULAR VOLUME 98.1 fL (81-97); MEAN PLATELET VOLUME 12.1 fL (7.4-10.4); PLATELET COUNT 461 x10^3/uL (130-400); RED BLOOD COUNT 4.56 x10^6/uL (4.38-5.82); RED CELL DISTRIBUTION WIDTH 16.1 % (9.4-14.8)
[2018-04-07 04:59] LABS: ALBUMIN 2.7 g/dL (3.4-5.0); ANION GAP 12 mmol/L (5-15); CALCIUM 9.9 mg/dL (8.5-10.1); CHLORIDE 102 mmol/L (98-107)
[2018-04-07 05:00] LABS: CREATININE 3.49 mg/dL (0.7-1.3)
[2018-04-07 05:41] LABS: MD YES
[2018-04-07 05:43] LABS: ANISOCYTOSIS 1+; BAND#(MANUAL) 0.24 x10^3/uL; BANDS%(MANUAL) 2 % (0-7); LYMPH#(MANUAL) 0.94 x10^3/uL (1-3.4); LYMPHS% (MANUAL) 8 % (22-44); MONOS#(MANUAL) 0.35 x10^3/uL (0.3-2.7); MONOS% (MANUAL) 3 % (2-9); MYELOCYTES# (MANUAL) 0.12 x10^3/uL (0-0); MYELOCYTES% (MANUAL) 1 % (0-0); SEG#(MANUAL) 10.15 x10^3/uL (1.8-6.8); SEGS% (MANUAL) 86 % (42-75); TOXIC GRAN 1+
[2018-04-07 05:44] LABS: <PLATELET ESTIMATE> INCREASED; LARGE PLATELETS 1+
[2018-04-07] MEDS: HEPARIN 5,000 UNITS/ML, 1ML SQ SCH (05:59)
[2018-04-07 07:30] VITALS: BP 151/70
[2018-04-07] MEDS: TACROLIMUS 1 MG CAPSULE PO SCH (09:16)
[2018-04-07] MEDS: METOPROLOL TARTRATE 50 MG TABLET PO SCH (09:16)
[2018-04-07] MEDS: VENLAFAXINE 75 MG CAP ER PO SCH (09:16)
[2018-04-07] MEDS: FERROUS SULFATE 325 MG TABLET PO SCH (09:17)
[2018-04-07] MEDS: TAMSULOSIN 0.4 MG CAP.ER.24H PO SCH (09:17)
[2018-04-07] MEDS: AMLODIPINE 10 MG TAB PO SCH (09:18)
[2018-04-07] MEDS: OMEPRAZOLE 20 MG CAPSULE.DR PO SCH (09:18)
[2018-04-07] MEDS: LEVOFLOXACIN 500 MG TABLET PO SCH (09:25)
[2018-04-07] MEDS: NAPHAZOLINE/PHENIRAMINE OPHTH EACHEYE PRN (09:26)
[2018-04-07 13:51] VITALS: BP 116/70
[2018-04-07] MEDS: ONDANSETRON ODT 4 MG PO PRN (14:36)
== END 2018-04-07 15:08 | DRG 871 ==
LOC: ED 16:46 → EDIP 19:05 → 5SO 20:07 → 4WST 04-05 17:20 → 4EST 04-05 19:38
PROVIDERS: ADMIT Internal Medicine; ATTEND Family Medicine
PROC: 0T9B70Z Drainage of Bladder with Drainage Device, Via Natural or Artificial Opening (ICD-10-PCS; principal; 2018-03-26)
DX: A41.9 Sepsis, unspecified organism (principal); N17.0 Acute kidney failure with tubular necrosis; E43 Unspecified severe protein-calorie malnutrition; E87.2 Acidosis; E87.1 Hypo-osmolality and hyponatremia; K50.90 Crohn's disease, unspecified, without complications; Z94.0 Kidney transplant status; N10 Acute pyelonephritis; I48.91 Unspecified atrial fibrillation; E87.6 Hypokalemia; Z96.611 Presence of right artificial shoulder joint; Z96.652 Presence of left artificial knee joint; M10.9 Gout, unspecified; K80.20 Calculus of gallbladder without cholecystitis without obstruction; N18.3 Chronic kidney disease, stage 3 (moderate); I12.9 Hypertensive chronic kidney disease with stage 1 through stage 4 chronic kidney disease, or unspecified chronic kidney disease; B96.1 Klebsiella pneumoniae [K. pneumoniae] as the cause of diseases classified elsewhere; D46.9 Myelodysplastic syndrome, unspecified; D63.1 Anemia in chronic kidney disease; E78.5 Hyperlipidemia, unspecified; E83.42 Hypomagnesemia; E86.0 Dehydration; I73.9 Peripheral vascular disease, unspecified; K21.9 Gastro-esophageal reflux disease without esophagitis; K59.00 Constipation, unspecified; Z79.899 Other long term (current) drug therapy; Z85.6 Personal history of leukemia; Z85.828 Personal history of other malignant neoplasm of skin; Z86.73 Personal history of transient ischemic attack (TIA), and cerebral infarction without residual deficits; Z91.19 Patient's noncompliance with other medical treatment and regimen; Z98.49 Cataract extraction status, unspecified eye; Z87.01 Personal history of pneumonia (recurrent); Z68.24 Body mass index [BMI] 24.0-24.9, adult
CPT/HCPCS: 36415; 71045; 76776; 80048; 80053; 80061; 80069; 80197; 81001; 82040; 82436; 83036; 83605; 83735; 83880; 84100; 84133; 84300; 84439; 84443; 84484; 84550; 85025; 85610; 85730; 87040; 87077; 87086; 87186; 93005; 96365; 96366; 96368; 96375; G0378; J0295; J0696; J1644; J2405; J7507; Q0162; J3475; J7030; J7512; J7517